=== PATIENT | male | born 1940 | race Caucasian/White ===

== ENCOUNTER → 2016-12-02 | Outpatient (CLI) | payer MEDICARE, BC ==
[~2016-12-02] MED LIST: ALEV220T14 PO; ASPI81CH37 CHEW; COMMODE 3-IN-11 MIS; CPMMACHINE; DILT1TAB4 PO; ENOX40P SQ; HYDR-3288 PO; LIPI10TA PO; WALKER WHEELS/F1 MIS
[2016-12-02 11:17] LABS: AUTOMATED NEUTROPHIL # 3.6 TH/MM3 (1.8-7.7); BASOPHIL % 0.4 % (0.0-2.0); EOSINOPHIL # 0.4 TH/MM3 (0-0.4); HEMATOCRIT 39.9 % (39.0-51.0); HEMO FLAGS DIFF FINAL; LYMPH % 30.3 % (9.0-44.0); LYMPHOCYTE # 2.1 TH/MM3 (1.0-4.8); MEAN CELL VOLUME 92.8 FL (80.0-100.0); MEAN CORPUSCULAR HEMOGLOBIN 31.2 PG (27.0-34.0); MEAN CORPUSCULAR HGB CONC 33.7 % (32.0-36.0); MONO % 12.5 % (0.0-8.0); NEUT % 51.8 % (16.0-70.0); PLATELET COUNT 248 TH/MM3 (150-450); RED CELL DISTRIBUTION WIDTH 13.2 % (11.6-17.2)
[2016-12-02 11:27] LABS: APTT (PATIENT) 25.7 SEC (24.3-30.1); INTERNATIONAL NORMALIZED RATIO 0.9 RATIO; PROTHROMBIN TIME - PATIENT 10.4 SEC (9.8-11.6)
[2016-12-02 11:38] LABS: BLOOD, URINE NEG (NEG); COMMENT (UR) CULT NOT INDICATED; CULTURE IF INDICATED CULT NOT INDICATED; GLUCOSE,URINE NEG (NEG); KETONE, URINE NEG (NEG); MUCUS URINE FEW /lpf (OCC); NITRITE,URINE NEG (NEG); PH, URINE 5.5 (5.0-8.5); URINE COLOR YELLOW (YELLW/STRAW)
[2016-12-02 11:40] LABS: WESTERGREN SEDIMENTATION RATE 6 mm/hr (0-20)
[2016-12-02 11:55] LABS: ANION GAP 6 MEQ/L (5-15); AST (GOT) 24 U/L (15-37); BICARBONATE 27.5 MEQ/L (21.0-32.0); BLOOD UREA NITROGEN 19 MG/DL (7-18); CHLORIDE 106 MEQ/L (98-107); GLOMERULAR FILTRATION RATE 71 ML/MIN (>89); GLUCOSE,FASTING 92 MG/DL (74-99); POTASSIUM 4.7 MEQ/L (3.5-5.1); SODIUM (NA) 139 MEQ/L (136-145)
[2016-12-02 11:56] LABS: ALT (GPT) 22 U/L (12-78)
[2016-12-02 11:58] LABS: ALKALINE PHOSPHATASE 78 U/L (45-117); TOTAL BILIRUBIN ADULT 0.8 MG/DL (0.2-1.0)
--- NOTE | 2016-12-02 13:44 | RADRPT ---
EXAM DATE/TIME: 12/02/2016 11:52 [facility] COMPARISON: CHEST PA & LAT, March 12, 2014, 11:07. INDICATIONS : Evaluate for pneumonia, pneumothorax or communicable disease. Pre op for left knee surgery 12-21-16. MEDICAL HISTORY : Hypertension. High blood pressure, TIA, hx of bleed SURGICAL HISTORY : None. ENCOUNTER: Initial ACUITY: 1 day PAIN SCORE: 0/10 LOCATION: Bilateral chest FINDINGS: The heart and mediastinal structures are stable. The pulmonary vascularity pattern is normal. The l ungs are clear. Degenerative changes are noted throughout the thoracic spine. CONCLUSION: 1. No acute cardiopulmonary disease. Miky Swann MD on December 02, 2016 at 12:59 Board Certified Radiologist. This report was verified electronically.
== END ==
LOC: CPRE 09:57
PROVIDERS: ATTEND Orthopaedic Surgery Sports Medicine
DX: Z01.812 Encounter for preprocedural laboratory examination (principal); M17.12 Unilateral primary osteoarthritis, left knee; M25.50 Pain in unspecified joint; Z79.01 Long term (current) use of anticoagulants
CPT/HCPCS: 36415; 71020; 80053; 81001; 85025; 85610; 85652; 85730

== ENCOUNTER 2016-12-18 07:00 | Inpatient (IN) | payer MEDICARE, BC ==
[~2016-12-18] VITALS: Ht 180.3 cm; Wt 83.9 kg
[~2016-12-18 07:00] MED LIST changes: -ASPI81CH37 CHEW; -COMMODE 3-IN-11 MIS; -CPMMACHINE; -ENOX40P SQ; -HYDR-3288 PO; -WALKER WHEELS/F1 MIS
[2016-12-21] MEDS ORDERED: METOPROLOL TARTRATE 25 MG TAB PO PRN (06:00)
[2016-12-21] MEDS ORDERED: CHLORHEXIDINE GLUCONATE 2 % 1 PACK (2 CLOTHS) TOPICAL PRN (06:00)
[2016-12-21] MEDS ORDERED: VANCOMYCIN 1000 MG/NS 250 ML (for <70 kg) IV SCH ×2 (06:00)
[2016-12-21] MEDS ORDERED: INSULIN HUMAN REGULAR 1,000 UNITS/10 ML VIAL SQ PRN (06:00)
[2016-12-21] MEDS ORDERED: LACTATED RINGER'S 1000 ML IV PRN (06:00)
[2016-12-21] MEDS ORDERED: CHLORHEXIDINE GLUCONATE 4% SOLN 120 ML BTL TOPICAL SCH (06:00)
[2016-12-21] MEDS ORDERED: POVIDONE IODINE 7.5% SCRUB 118 ML BOTTLE TOPICAL SCH (06:00)
[2016-12-21] MEDS ORDERED: ceFAZolin 2 GM PREMIX 50 ML IV SCH (06:00)
[2016-12-21] MEDS ORDERED: POVIDONE IODINE 5% (ANTISEPSIS KIT) 4 APPLICATIONS EACH NARE PRN (06:00)
[2016-12-21] MEDS ORDERED: SODIUM CHLORID 0.9% 500 ML IV PRN (06:00)
[2016-12-21] MEDS ORDERED: GENTAMICIN SULFATE 80 MG/2 ML VIAL ONE (06:55)
[2016-12-21] MEDS ORDERED: ONDANSETRON HCL 4 MG/2 ML VIAL IVP PRN (07:00)
[2016-12-21] MEDS ORDERED: ZOLPIDEM TARTRATE 5 MG TAB PO PRN (07:00)
[2016-12-21] MEDS ORDERED: diphenhydrAMINE HCL 50 MG/ML VIAL IV PRN (07:00)
[2016-12-21] MEDS ORDERED: BISACODYL 10 MG SUPP RECTAL PRN (07:00)
[2016-12-21] MEDS ORDERED: MORPHINE SULFATE 4 MG/ML INJ IV PUSH PRN (07:00)
[2016-12-21] MEDS ORDERED: Post-op Orders (for Pharmacy) MISC XX ONE (07:00)
[2016-12-21] MEDS ORDERED: DEXAMETHASONE SOD PHOS 20 MG/5 ML VIAL IV SCH (07:30)
[2016-12-21] MEDS ORDERED: ASPI81CH37 CHEW (08:26)
[2016-12-21] MEDS ORDERED: HYDR-3288 PO (08:27)
[2016-12-21] MEDS ORDERED: ENOX40P SQ (08:27)
[2016-12-21] MEDS ORDERED: SODIUM CHLORIDE 0.9% IV SCH (08:30)
[2016-12-21] MEDS ORDERED: TRANEXAMIC ACID IV SCH (08:30)
[2016-12-21] MEDS ORDERED: ROPIVACAINE PERI-ARTICULAR INJECTION. P-ARTICULR SCH ×5 (08:30)
[2016-12-21] MEDS ORDERED: TRANEXAMIC PERI-ARTICULAR 3,000 MG/NS 100 ML P-ARTICULR SCH ×2 (08:30)
[2016-12-21] MEDS ORDERED: SODIUM CHLORIDE 0.9% FLUSH 10 ML FLUSH IV FLUSH PRN (08:45)
[2016-12-21] MEDS: DILTIAZEM-CD 240 MG CAP ER PO SCH ×2 (09:00→21:58)
[2016-12-21] MEDS: SODIUM CHLORIDE 0.9% FLUSH 10 ML FLUSH IV FLUSH SCH ×2 (09:00→21:44)
--- NOTE | 2016-12-21 10:19 | HHI.PR ---
Addendum to Inpatient Note Additional Information Medicare patient of Dr. Barnett. Discussed with Dr. Siu who will assume medical consult Diogenes Villegas MD Dec 21, 2016 10:19
[2016-12-21] MEDS ORDERED: DO NOT ADM ANY ANTICOAGULANT DRUGS PRN (10:42)
--- NOTE | 2016-12-21 11:36 | MP ---
cc: BUSHRA ROSARIO DATE OF SURGERY: 12/21/2016 PREOPERATIVE DIAGNOSIS Left knee osteoarthritis. POSTOPERATIVE DIAGNOSIS Left knee osteoarthritis. PROCEDURE Left total knee arthroplasty. SURGEON Dr. Bushra Rosario. PATIENT OBSERVATION ASSISTANT ELEONORA Urbano ANESTHESIA General with an adductor canal block. ESTIMATED BLOOD LOSS 50 ccs. TOURNIQUET TIME 56 minutes at 250 mmHg. COMPLICATIONS None. IMPLANTS USED DePuy Attune size 8 posterior stabilized femoral component, size 8 rotating platform tibia baseplate, size 5 mm polyethylene tibial insert, size 41 patella. JUSTIFICATION This patient is a 76-year-old male with history of severe end-stage osteoarthritis involving the left knee. He has severe disabling pain with standing, walking, ambulation, weight-bear Activities, severe pain at rest. He has failed greater than 3 months of nonoperative conservative treatment to include medication therapy, injections, ambulatory assisted aids, home exercise program, activity modification. The patient is not overweight. X-ray of the left knee reveals severe end-stage osteoarthritis, [id number] joint space narrowing, subchondral sclerosis, subchondral cyst, osteophyte formation with varus deformity. The patient was counseled as to the risks, benefits and alternatives to a total knee arthroplasty. The risks were discussed which include but not limited to anesthesia, bleeding, infection, damage to nerves, blood vessels, pain, stiffness, failure of components, blood clots, pulmonary embolism and even . The patient's pain is severe, he favored the benefits over the risks and did wish to proceed with surgery. PROCEDURE IN DETAIL A written consent was obtained. The patient was identified by name, taken to the operating room and placed supine on the operating table. General anesthesia was administered as well as 2 grams of IV Ancef and 1 gram of IV vancomycin. He did receive adductor canal block. A well-padded tourniquet was placed on the left thigh, left lower extremity was prepped and draped using isopropyl alcohol, Hibiclens solution and Chloraprep solution. After time-out was performed an Esmarch bandage was used to exsanguinate the left lower extremity. Tourniquet was inflated to 250 mmHg. A longitudinal incision was made over the anterior aspect of the left knee. A medial parapatellar arthrotomy was performed. The patella was everted. Patella resection guide was used to resect 9 mm of patella. The size 41 mm guide was placed, three drill holes were placed and a 41 mm patella trial fit well. Attention was turned to the femur where an intramedullary guidewire was placed. The distal femoral guide was set to remove 11 mm of distal femur, 5 degrees off the anatomic valgus axis alignment. An oscillating saw was used to perform the distal femoral cut. Attention was turned to the tibia where an extramedullary tibial guide was set to remove 5 mm off the lowest portion of the medial tibial plateau. The tibia guide was pinned in place and tibia cut was performed. A 5-mm spacer block showed full extension. Attention was turned back the femur, AP sizing block measured a size 8. The anterior reference 3 degree external rotation guide was used to pin the size [address] The anterior, posterior and chamfer cuts were performed. A size 8 PCL box guide was pinned in place. PCL was boxed out with an oscillating saw. The medial and lateral meniscus remnants were removed as well as bone and soft tissue debris from posterior portion of the knee. A size 8 tibia baseplate was pinned in place. Tibia was drilled and punched. Trial components were evaluated and final components cemented in place. With current component the leg could achieve full extension 0 degrees, flexion to 140. No evidence of tibial lift-off, varus-valgus balance appeared appropriate and symmetric and the patella was noted to track centrally. Tourniquet was deflated. Bovie cautery was used for hemostasis. Surgical wound was thoroughly irrigated with sterile saline pulse lavage antibiotic impregnated solution. The arthrotomy incision was closed with #1 Vicryl suture, subcutaneous layer with 2-0 Vicryl suture. Skin was closed with Dermabond. Sterile dressing was applied. The patient tolerated the procedure well with no intraoperative complications noted. Jerman Tracy, physician licensed investment sales assistant certified was present during the entire procedure to include patient positioning and the procedure itself. The medical necessity of physician licensed investment sales assistant was indicated in this case due to the complexity of the procedure. He assisted with appropriate manipulation of the leg and also retraction of muscle, tendon and bone, neurovascular structures. He assisted with preparation of bone and also implantation of the prosthetic replacement. MD LUIZA Moreno/MARTÍN /10:19 AM /11:12 AM
[2016-12-21] MEDS: SODIUM CHLOR 0.9% 1000 ML INJ 1,000 ML IV SCH ×2 (11:50→19:00)
--- NOTE | 2016-12-21 11:50 | RADRPT ---
EXAM DATE/TIME: 12/21/2016 10:48 [facility] COMPARISON: No previous studies available for comparison. INDICATIONS : Post operative left knee. MEDICAL HISTORY : Hypertension. High blood pressure, TIA, hx of bleed. SURGICAL HISTORY : None. ENCOUNTER: Initial ACUITY: 1 day PAIN SCORE: Non-responsive. LOCATION: Left knee. FINDINGS: Left total knee arthroplasty is noted. The tibial and femoral components are well seated. There is ai r in the suprapatellar region and a small amount of subcutaneous emphysema. CONCLUSION: Expected postsurgical changes left total knee arthroplasty. Vishnu Torres MD on December 21, 2016 at 11:48 Board Certified Radiologist. This report was verified electronically.
[2016-12-21] MEDS ORDERED: ePHEDrine/NS 25 MG/5 ML SYR IV ONE (12:00)
[2016-12-21] MEDS ORDERED: ONDANSETRON HCL 4 MG/2 ML VIAL IV PUSH ONE (12:00)
[2016-12-21] MEDS ORDERED: LIDOCAINE HCL 1% PF 5 ML AMPULE OTHER ONE (12:00)
[2016-12-21] MEDS ORDERED: PROPOFOL 200 MG/20 ML AMP IV ONE (12:00)
[2016-12-21] MEDS ORDERED: BUPIVACAINE LIPOSOME PF 1.3% 20 ML VIAL ONE (12:18)
--- NOTE | 2016-12-21 12:48 | HHI.DCPOC ---
Discharge Care Plan Diagnosis: (1) Primary localized osteoarthrosis, lower leg Your Health Problems Are: Difficulty with ADL Goals to Promote Your Health * To prevent worsening of your condition and complications * To maintain your health at the optimal level Directions to Meet Your Goals Take your medications as prescribed Follow your dietary instruction Follow activity as directed Keep your appointments as scheduled Take your immunizations and boosters as scheduled If your symptoms worsen call your PCP, if no PCP go to Urgent Care Center or Emergency Room Smoking is Dangerous to Your Health. Avoid second hand smoke Call the 24-hour hour crisis hotline for domestic abuse at Martin Tracy Dec 21, 2016 12:48
--- NOTE | 2016-12-21 12:49 | HHI.FF ---
Face to Face Verification Diagnosis: (1) Primary localized osteoarthrosis, lower leg Physical Therapy Gait training, Safety evaluation, Transfer training, bed to chair Knee: Total knee, Protocol: Left Left LE Weight Bearing: WB as tolerated Nursing RN: 3 days/week x 2 weeks Nursing: Tita teaching, Dressing changes Dressing Changes: Daily dressing change I have seen patient Coleman Chapa on 12/21/16. My clinical findings support the need for the requested home health care services because: Limited ability to care for self High risk of falls I certify that my clinical findings support that this patient is homebound because: Post-op weakness Unsteady gait/balance Martin Tracy Dec 21, 2016 12:49
[2016-12-21] MEDS ORDERED: CPMMACHINE (12:51)
[2016-12-21] MEDS ORDERED: WALKER WHEELS/F1 MIS (12:51)
[2016-12-21] MEDS ORDERED: COMMODE 3-IN-11 MIS (12:51)
[2016-12-21] MEDS: ACETAMINOPHEN/HYDROcodone 325 MG/7.5 MG TAB PO PRN ×3 (13:44→21:58)
[2016-12-21 13:45] VITALS: BP 140/74; PULSE 77; RESP 18; TEMP 95.7; O2SAT 98
[2016-12-21 16:00] VITALS: BP 155/75; PULSE 76; RESP 18; TEMP 96.6; O2SAT 98
--- NOTE | 2016-12-21 16:11 | HHI.PR ---
Objective Objective Results - Vital Signs Date Time Temp Pulse Resp B/P (MAP) Pulse Ox O2 Delivery O2 Flow Rate FiO2 12/21/16 12:45 98.0 73 18 141/71 (94) 98 Room Air 12/21/16 12:15 72 18 133/65 (87) 98 Room Air 12/21/16 12:00 72 18 133/65 (87) 98 Room Air 12/21/16 11:45 78 18 136/70 (92) 97 Room Air 12/21/16 11:30 72 18 134/63 (86) 97 Nasal Cannula 2 12/21/16 11:15 69 16 136/63 (87) 97 Nasal Cannula 2 12/21/16 11:00 64 16 115/58 (77) 97 Nasal Cannula 2 12/21/16 10:43 97.6 65 16 122/61 (81) 100 Nasal Cannula 12/21/16 05:35 98.0 65 20 157/76 (103) 99 I/O 12/20/16 12/20/16 12/20/16 12/21/16 12/21/16 12/21/16 07:00 15:00 23:00 07:00 15:00 23:00 Intake Total 1150 ml Output Total 1020 ml Balance 130 ml Intake IV Total 50 ml Other 1100 ml Output Urine Total 1000 ml Estimated Blood Loss 20 ml A/P Assessment and Plan [id number] OA lt. Knee , S/P lt total knee arthroplasty DDD HTN CVD, murmur Hyperlipidemia Corina Traylor Dec 21, 2016 16:11
[2016-12-21 17:57] VITALS: O2SAT 98
--- NOTE | 2016-12-21 19:42 | MB ---
cc: ELENI FAM MD DATE OF CONSULTATION 12/21/2016 Consultation note for medical management. DATE OF 1940 This is Corina Traylor, nurse practitioner dictating with Dr. Fam present. REASON FOR CONSULTATION Medical management as stated. HISTORY OF PRESENT ILLNESS This is a pleasant, well-developed, well-nourished, white male who has been struggling with osteoarthritis in his left knee. 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 He has had injections but made a conscious decision to the have left total knee arthroplasty. The patient is now resting in his private room postop. He is alert, oriented and a good historian. PAST MEDICAL HISTORY Includes: 1. Hypertension, controlled. 2. Osteoarthritis. 3. Heart disease. 4. Right hip osteoarthritis. 5. Hyperlipidemia. 6. Mild chronic obstructive pulmonary disease. 7. Ethyl alcohol usage. 8. Right shoulder osteoarthritis. 9. Cataracts. PAST SURGICAL HISTORY 1. He is status post left total knee arthroplasty. 2. History of right shoulder repair. 3. Right hip artificial joint repair. ALLERGIES None known. MEDICATIONS Reconciled. 1. Lipitor. 2. Cardizem. 3. Aspirin. 4. Aleve. 5. Hydrocodone. SOCIAL HISTORY The patient is , currently lives in his home with his . 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 He was exposed to secondhand smoke from his parents. He does socially drink alcohol but not daily in small amounts. No illicit drug use. REVIEW OF SYSTEMS The 10-point review was obtained. Positives noted in HPI which include his symptoms of osteoarthritis. The patient denies any chest pain. No headaches. No problems with bowel regimen. No nausea. Other systems negative or unremarkable. PHYSICAL EXAMINATION VITAL SIGNS: Temperature is 98, pulse 73, respirations 18, blood pressure 141/71, has been as low as 133/65. Currently 98% O2 sat on room air. GENERAL: Slim, well-nourished, well-developed white male looks younger than his stated age resting in the bed. He is alert, oriented and a good historian. SKIN: Sun, warm and dry. HEENT: Atraumatic, normocephalic. DOUG at 3. Mucous membranes are pink and moist. NECK: Supple. No scleral icterus. CARDIOVASCULAR: S1-S2, rhythm is regular. He does have a soft systolic murmur grade 2/6 at the left sternal border. He has no edema and his extremities are warm with good pulses. LUNGS: Essentially clear anteriorly and posteriorly with no wheezes, rhonchi or rales. ABDOMEN: Flat, soft, nontender, nondistended. Active bowel sounds. MUSCULOSKELETAL: Moves all extremities with purpose. He can overcome resistance. He does have some guarding to the left lower extremity due to his knee surgery today. NEUROLOGIC: He is alert, oriented. Tongue is midline. Speech is clear. HPSYCHOLOGIC: Appropriate mood and affect. LABORATORY DATA Diagnostic data done on 12/02/2016 WBC count was 7, RBC 4.3, hemoglobin 13.4, hematocrit 39.9, platelet count 248. Sebastian count percentage 12.5, eosinophils 5. Chemistry, sodium 139, potassium 4.7, chloride 106, carbon dioxide 27.5. BUN 19, GFR 71. AST 24, ALT 22. Albumin 4.1. Urine was clear with no culture indicated. PT INR was 0.9. IMAGING Showed knee x-ray to be the expected postsurgical changes and the left total knee arthroplasty. ASSESSMENT/PLAN 1. Osteoarthritis. The patient is with degenerative joint disorders. He is status post left total knee arthroplasty. 2. Hypertension. 3. History of cardiovascular disease. 4. Systolic murmur noted. 5. Hyperlipidemia. Our plan is to admit. We will monitor some labs in the morning. Postoperative care and pain management will be cared for per his orthopedic team. Medications have been reconciled. We will monitor for any signs or symptoms of fever or uncontrolled hypertension. The patient's discharge planning is something that he is debating on at this time. He is possibly looking at going to [facility] versus an outpatient program to where he can use the physical therapist pre. The patient is full code, full aggressive care and we will follow. Thank you very much for this consultation. Dictated by: JOANN Hahn MD GONZÁLEZ Lara/SHAY /4:01 PM /7:17 PM
[2016-12-21 20:01] VITALS: BP 154/68; PULSE 78; RESP 17; TEMP 96.9; O2SAT 97
[2016-12-21] MEDS: ATORVASTATIN 10 MG TAB PO SCH (21:44)
[2016-12-22] VITALS (7 sets, daily range): BP systolic 116–154; BP diastolic 58–79; PULSE 61–80; RESP 17–18; TEMP 96.9–97.9; O2SAT 96–98
[2016-12-22] MEDS: ACETAMINOPHEN/HYDROcodone 325 MG/7.5 MG TAB PO PRN ×3 (05:10→19:11)
[2016-12-22 06:52] LABS: HEMATOCRIT 34.4 % (39.0-51.0); MEAN CELL VOLUME 92.8 FL (80.0-100.0); MEAN CORPUSCULAR HEMOGLOBIN 30.6 PG (27.0-34.0); PLATELET COUNT 241 TH/MM3 (150-450); REVIEW FLAG FINAL; WHITE BLOOD COUNT 16.5 TH/MM3 (4.0-11.0)
[2016-12-22 07:20] LABS: BICARBONATE 24.2 MEQ/L (21.0-32.0); POTASSIUM 4.2 MEQ/L (3.5-5.1)
--- NOTE | 2016-12-22 08:26 | PD.ORT.PN ---
Subjective Post Op Day #: 1 Subjective Remarks doing well, pain controlled. Objective Vitals Vital Signs Date Time Temp Pulse Resp B/P (MAP) Pulse Ox O2 Delivery O2 Flow Rate FiO2 12/22/16 04:06 97.2 80 17 154/79 (104) 98 12/22/16 00:00 96.9 79 17 135/76 (95) 96 12/21/16 20:01 96.9 78 17 154/68 (96) 97 12/21/16 17:57 98 21 12/21/16 16:00 96.6 76 18 155/75 (101) 98 12/21/16 13:45 95.7 77 18 140/74 (96) 98 12/21/16 12:45 98.0 73 18 141/71 (94) 98 Room Air 12/21/16 12:15 72 18 133/65 (87) 98 Room Air 12/21/16 12:00 72 18 133/65 (87) 98 Room Air 12/21/16 11:45 78 18 136/70 (92) 97 Room Air 12/21/16 11:30 72 18 134/63 (86) 97 Nasal Cannula 2 12/21/16 11:15 69 16 136/63 (87) 97 Nasal Cannula 2 12/21/16 11:00 64 16 115/58 (77) 97 Nasal Cannula 2 12/21/16 10:43 97.6 65 16 122/61 (81) 100 Nasal Cannula I/O 12/21/16 12/21/16 12/21/16 12/22/16 12/22/16 12/22/16 07:00 15:00 23:00 07:00 15:00 23:00 Intake Total 1150 ml 480 ml 120 ml Output Total 1120 ml 250 ml 400 ml Balance 30 ml 230 ml -280 ml Intake Oral 480 ml 120 ml IV Total 50 ml Other 1100 ml Output Urine Total 1100 ml 250 ml 400 ml Estimated Blood Loss 20 ml # Voids 1 # Bowel Movements 0 0 Result Diagram: 12/22/1645 12/22/1645 Objective Remarks in chair, nad incision no erythema, no drainage neg homans nvi Assessment & Plan Ortho Post Op Day #: 1 Problem List: Assessment and Plan s/p L TKA wbat daily dressing changes lovenox d/c planning to snf 3008 signed rx in chart f/up dr. baumann 2 weeks Martin Tracy Dec 22, 2016 08:26
[2016-12-22] MEDS: DILTIAZEM-CD 240 MG CAP ER PO SCH (10:17)
[2016-12-22] MEDS: SODIUM CHLORIDE 0.9% FLUSH 10 ML FLUSH IV FLUSH SCH ×2 (10:18→20:35)
[2016-12-22] MEDS: ENOXAPARIN SODIUM 40 MG/0.4 ML SYRINGE SQ SCH (10:20)
--- NOTE | 2016-12-22 12:30 | HHI.PR ---
Subjective Subjective Remarks left knee pain stable no fever no cp no sob no bm yet eating well, no n/v (Carolyn Valentine) Review of Systems Constitutional Constitutional Remarks 12 point ros completed, negative except as noted above (Carolyn Valentine) Vitals/Results Vital Signs Vital Signs Date Time Temp Pulse Resp B/P (MAP) Pulse Ox O2 Delivery O2 Flow Rate FiO2 12/22/16 08:00 96.9 66 18 136/66 (89) 98 12/22/16 04:06 97.2 80 17 154/79 (104) 98 12/22/16 00:00 96.9 79 17 135/76 (95) 96 12/21/16 20:01 96.9 78 17 154/68 (96) 97 12/21/16 17:57 98 21 12/21/16 16:00 96.6 76 18 155/75 (101) 98 12/21/16 13:45 95.7 77 18 140/74 (96) 98 12/21/16 12:45 98.0 73 18 141/71 (94) 98 Room Air (Carolyn Valentine) CBC/BMP: 12/22/16 0545 12/22/16 0545 Lab Results Laboratory Tests Test 12/22/16 05:45 White Blood Count 16.5 TH/MM3 Red Blood Count 3.70 MIL/MM3 Hemoglobin 11.3 GM/DL Hematocrit 34.4 % Mean Corpuscular Volume 92.8 FL Mean Corpuscular Hemoglobin 30.6 PG Mean Corpuscular Hemoglobin Concent 33.0 % Red Cell Distribution Width 13.0 % Platelet Count 241 TH/MM3 Mean Platelet Volume 8.0 FL Blood Urea Nitrogen 18 MG/DL Creatinine 0.99 MG/DL Random Glucose 127 MG/DL Calcium Level 8.8 MG/DL Sodium Level 140 MEQ/L Potassium Level 4.2 MEQ/L Chloride Level 106 MEQ/L Carbon Dioxide Level 24.2 MEQ/L Anion Gap 10 MEQ/L Estimat Glomerular Filtration Rate 73 ML/MIN (Carolyn Valentine) Physical Exam General General Appearance: Well Developed, Well Nourished, No Acute Distress, Comfortable (Carolyn Valentine) Eyes Eye Exam: Pupils Equal, Pupils Reactive (Carolyn Valetnine) Ears & Nose Ears & Nose Exam: Nasal Mucosa [place] (Carolyn Valentine G. DIVORCE MEDIATOR) Throat Throat Exam: Oral Mucosa [place] & Moist (Carolyn Valentine G. DIVORCE MEDIATOR) Neck Neck Exam: Neck Supple, Trachea Midline (Carolyn Valentine G. DIVORCE MEDIATOR) Pulmonary Resp Exam: Clear Bilaterally, No Distress (Garrett Valentineana G. DIVORCE MEDIATOR) Cardiology CV Exam: Regular, Good Perfusion (Garrett Valentineana G. DIVORCE MEDIATOR) Gastrointestinal/Abdomen GI Exam: Soft, Non-Tender, Bowel Sounds Present, Non-Distended (Carolyn Valentine G. DIVORCE MEDIATOR) Musculoskeletal MS Exam: Joints Intact MS Remarks left knee dressing D/I (Carolyn Valentine G. DIVORCE MEDIATOR) Integumentary Skin Exam: Warm, Dry (Carolyn Valentine G. DIVORCE MEDIATOR) Extremeties Extremities Exam: Pedal Pulses Palpable, Trace Edema (Carolyn Valentine G. DIVORCE MEDIATOR) Neurologic Neuro Exam: Alert, Awake, Oriented, Speech Clear, Moving All Extremities, No Focal Deficits (Carolyn Valentine G. DIVORCE MEDIATOR) Psychiatric Psych Exam: Appropriate Responses (Carolyn Valentine GKj DIVORCE MEDIATOR) VTE Prophylaxis VTE Prophylaxis Device: TEDs VTE Prophylaxis Meds: Lovenox (MemeCarolyn G. DIVORCE MEDIATOR) Assessment/Plan Assessment/Plan ASSESSMENT/PLAN 1. Osteoarthritis. Status post left total knee arthroplasty. 2. Hypertension. 3. Hyperlipidemia. 4. Leukocytosis Plan continue with post op ortho care pain management PT Bowel Regimen wound car Lovenox for DVT prophylaxis BP control, continue home meds Leukocytosis, no fever monitor WBC Enc. IS, inc mobility Repeat Labs in am D/W RN D/W Dr. Siu D/W pt This patient was seen by myself and Dr. Siu, this note is written on his behalf. (Carolyn Valentine DIVORCE MEDIATOR) Assessment/Plan seen, examined by myself, Dr Siu, today Discussed with patient and family at bedside Doing well postoperatively Eating well, doing his physical therapy without problems, pain well controlled, Leukocytosis noted, no fever, no cough, no dysuria Follow white count Discussed with mid level provider The exam, history, and the medical decision-making described in the above note were completed with the assistance of the mid-level provider. I reviewed the findings presented. I attest that I had a [id number] encounter with the patient on the same day, and personally performed and documented my assessment and findings in the medical record. (Jax Siu MD) Carolyn Valentine Dec 22, 2016 12:30 Jax Siu MD Dec 22, 2016 16:55
[2016-12-22] MEDS: SODIUM CHLOR 0.9% 1000 ML INJ 1,000 ML IV SCH (15:00)
[2016-12-22] MEDS: MULTIVITAMINS/MINERALS THERAPEUTIC TAB PO SCH (20:34)
[2016-12-22] MEDS: ATORVASTATIN 10 MG TAB PO SCH (20:34)
[2016-12-22] MEDS: DOCUSATE SODIUM 100 MG CAP PO SCH (20:35)
[2016-12-23] MEDS: SODIUM CHLOR 0.9% 1000 ML INJ 1,000 ML IV SCH ×2 (00:27→11:00)
[2016-12-23] MEDS: ACETAMINOPHEN/HYDROcodone 325 MG/7.5 MG TAB PO PRN ×3 (02:46→13:31)
[2016-12-23 05:51] LABS: HEMATOCRIT 34.8 % (39.0-51.0); MEAN CELL VOLUME 92.6 FL (80.0-100.0); MEAN CORPUSCULAR HEMOGLOBIN 30.7 PG (27.0-34.0); MEAN CORPUSCULAR HGB CONC 33.2 % (32.0-36.0); PLATELET COUNT 248 TH/MM3 (150-450); RED BLOOD COUNT 3.76 MIL/MM3 (4.50-5.90); RED CELL DISTRIBUTION WIDTH 13.1 % (11.6-17.2); REVIEW FLAG FINAL; WHITE BLOOD COUNT 13.7 TH/MM3 (4.0-11.0)
[2016-12-23 06:05] LABS: BICARBONATE 25.9 MEQ/L (21.0-32.0)
--- NOTE | 2016-12-23 06:16 | PD.ORT.PN ---
Subjective Post Op Day #: 2 Subjective Remarks doing well, pain controlled. denies sob and cp. Objective Vitals Vital Signs Date Time Temp Pulse Resp B/P (MAP) Pulse Ox O2 Delivery O2 Flow Rate FiO2 12/22/16 23:03 97.2 71 18 134/58 (83) 96 12/22/16 19:16 97.9 62 18 149/67 (94) 96 12/22/16 16:00 97.2 61 18 116/61 (79) 97 12/22/16 12:00 97.4 61 18 129/68 (88) 97 12/22/16 08:00 96.9 66 18 136/66 (89) 98 I/O 12/22/16 12/22/16 12/22/16 12/23/16 12/23/16 12/23/16 07:00 15:00 23:00 07:00 15:00 23:00 Intake Total 120 ml 600 ml 360 ml 480 ml Output Total 400 ml 100 ml 375 ml 750 ml Balance -280 ml 500 ml -15 ml -270 ml Intake Oral 120 ml 600 ml 360 ml 480 ml Output Urine Total 400 ml 100 ml 375 ml 750 ml # Voids 2 2 # Bowel Movements 0 0 0 0 Result Diagram: 12/23/16 0501 12/23/16 0501 Objective Remarks in bed, nad dressing c/d/i neg homans nvi Assessment & Plan Ortho Post Op Day #: 2 Problem List: Assessment and Plan s/p L TKA wbat daily dressing changes lovenox d/c planning home with [facility] and pt - cleared if does well with PT [id number] signed rx in chart f/up dr. baumann 2 weeks Martin Tracy Dec 23, 2016 06:16
[2016-12-23 08:00] VITALS: BP 163/84; PULSE 83; RESP 18; TEMP 97.5; O2SAT 97
[2016-12-23] MEDS ORDERED: MAGNESIUM HYDROXIDE SUSP 30 ML CUP PO ONE (09:00)
[2016-12-23] MEDS: DILTIAZEM-CD 240 MG CAP ER PO SCH (09:18)
[2016-12-23] MEDS: DOCUSATE SODIUM 100 MG CAP PO SCH (09:18)
[2016-12-23] MEDS: MULTIVITAMINS/MINERALS THERAPEUTIC TAB PO SCH (09:18)
[2016-12-23] MEDS: SODIUM CHLORIDE 0.9% FLUSH 10 ML FLUSH IV FLUSH SCH (09:21)
[2016-12-23] MEDS ORDERED: INFLUENZA VIRUS VACCINE (QUADRIVALENT) 0.5 ML SYR IM ONE (10:00)
[2016-12-23] MEDS: ENOXAPARIN SODIUM 40 MG/0.4 ML SYRINGE SQ SCH (10:06)
--- NOTE | 2016-12-23 11:00 | HHI.PR ---
Subjective Subjective Remarks left knee pain stable no fever no cp no sob no bm yet eating well, no n/v Owing to rehabilitation today Per nursing, was a little disoriented last night, patient better today. Oriented 3. Review of Systems Constitutional Constitutional Remarks 12 point ros completed, negative except as noted above Vitals/Results Vital Signs Vital Signs Date Time Temp Pulse Resp B/P (MAP) Pulse Ox O2 Delivery O2 Flow Rate FiO2 12/23/16 08:00 97.5 83 18 163/84 (110) 97 12/22/16 23:03 97.2 71 18 134/58 (83) 96 12/22/16 19:16 97.9 62 18 149/67 (94) 96 12/22/16 16:00 97.2 61 18 116/61 (79) 97 12/22/16 12:00 97.4 61 18 129/68 (88) 97 CBC/BMP: 12/23/16 0501 12/23/16 0501 Lab Results Laboratory Tests Test 12/23/16 05:01 White Blood Count 13.7 TH/MM3 Red Blood Count 3.76 MIL/MM3 Hemoglobin 11.5 GM/DL Hematocrit 34.8 % Mean Corpuscular Volume 92.6 FL Mean Corpuscular Hemoglobin 30.7 PG Mean Corpuscular Hemoglobin Concent 33.2 % Red Cell Distribution Width 13.1 % Platelet Count 248 TH/MM3 Mean Platelet Volume 8.1 FL Blood Urea Nitrogen 19 MG/DL Creatinine 0.91 MG/DL Random Glucose 107 MG/DL Calcium Level 9.0 MG/DL Sodium Level 138 MEQ/L Potassium Level 4.0 MEQ/L Chloride Level 105 MEQ/L Carbon Dioxide Level 25.9 MEQ/L Anion Gap 7 MEQ/L Estimat Glomerular Filtration Rate 81 ML/MIN Physical Exam General General Appearance: Well Developed, Well Nourished, No Acute Distress, Comfortable Eyes Eye Exam: Pupils Equal, Pupils Reactive Ears & Nose Ears & Nose Exam: Nasal Mucosa [place] Throat Throat Exam: Oral Mucosa [place] & Moist Neck Neck Exam: Neck Supple, Trachea Midline Pulmonary Resp Exam: Clear Bilaterally, No Distress Cardiology CV Exam: Regular, Good Perfusion Gastrointestinal/Abdomen GI Exam: Soft, Non-Tender, Bowel Sounds Present, Non-Distended Musculoskeletal MS Exam: Joints Intact MS Remarks left knee dressing D/I Integumentary Skin Exam: Warm, Dry Extremeties Extremities Exam: Pedal Pulses Palpable, Trace Edema Neurologic Neuro Exam: Alert, Awake, Oriented, Speech Clear, Moving All Extremities, No Focal Deficits Psychiatric Psych Exam: Appropriate Responses VTE Prophylaxis VTE Prophylaxis Device: TEDs VTE Prophylaxis Meds: Lovenox Assessment/Plan Assessment/Plan ASSESSMENT/PLAN 1. Osteoarthritis. Status post left total knee arthroplasty. 2. Hypertension. 3. Hyperlipidemia. 4. Leukocytosis Plan continue with post op ortho care pain management PT Bowel Regimen-as that had BM, will MOM x 1 wound car Lovenox for DVT prophylaxis BP control, continue home meds WBC is trending down, no fever Continue with ISS, increased mobility Stable for discharge home with home health D/W RN D/W Dr. Siu D/W pt This patient was seen by myself and Dr. Siu, this note is written on his behalf. Carolyn Valentine Dec 23, 2016 11:00
[2016-12-23 12:00] VITALS: BP 148/81; PULSE 77; RESP 18; TEMP 97; O2SAT 98
--- NOTE | 2016-12-24 08:28 | MD ---
cc: BUSHRA ROSARIO M.D. ADMISSION DATE: 12/21/2016 DISCHARGE DATE: 12/23/2016 ADMISSION DIAGNOSIS Severe degenerative osteoarthritis of the left knee. DISCHARGE DIAGNOSIS Severe degenerative osteoarthritis of the left knee. HISTORY OF PRESENT ILLNESS Mr. Chapa is a 76-year-old male who has been a longstanding patient of Dr. Bushra Rosario at the [facility]. He has currently been undergoing treatment for greater than 1 year duration regarding his progressive left knee pain. The patient states the pain at this point in time is inhibiting his activities of daily living, is a constant, severe aching sensation aggravated by weightbearing activities. He has no alleviating factors although in the past he has tried medications, bracing, physical therapy, home exercise program and multiple corticosteroid injections without long-lasting relief of symptoms. He does have x-ray evidence of severe degenerative osteoarthritis of the left knee. While in the office the patient was counseled on his diagnosis and treatment options. The risks, benefits and indications of all were discussed in great detail. The patient did elect proceed with surgical intervention to include a left total knee arthroplasty. DATE OF SURGERY 12/21/2016 PROCEDURE PERFORMED Left total knee arthroplasty. POSTOP After surgery the patient was admitted to [facility] where he received appropriate medical management, pain control, DVT prophylaxis as well as physical therapy. DISCHARGE Once being discharged from the hospital the patient is cleared to go home where he will receive home health care and home physical therapy. CONDITION ON DISCHARGE He is in stable condition. DISCHARGE INSTRUCTIONS He may weight-bear as tolerated. He is to receive daily dressing changes and has been instructed on proper wound care management. DISCHARGE MEDICATIONS The patient has been provided prescriptions for pain control as well as DVT prophylaxis medication. FOLLOWUP He has also been provided a follow-up appointment approximately 2 weeks from the date of surgery. The patient has asked appropriate questions which have been answered. The patient was cleared for discharge. Dictated by: Jerman Tracy PA-C MD ROCHELLE MorenoM/INGRID /6:17 AM /8:22 AM
== END 2016-12-23 15:55 | disposition home health service (06) | DRG 470 ==
LOC: HSDI 12-21 05:27 → N06B 12-21 13:23
PROVIDERS: ADMIT Orthopaedic Surgery Sports Medicine; ATTEND Orthopaedic Surgery Sports Medicine
PROC: 3E0T3CZ (ICD-10-PCS; 2016-12-21)
PROC: 0SRD0J9 Replacement of Left Knee Joint with Synthetic Substitute, Cemented, Open Approach (ICD-10-PCS; principal; 2016-12-21 07:58)
DX: M17.12 Unilateral primary osteoarthritis, left knee (principal); J44.9 Chronic obstructive pulmonary disease, unspecified; I10 Essential (primary) hypertension; E78.5 Hyperlipidemia, unspecified; H26.9 Unspecified cataract; M19.011 Primary osteoarthritis, right shoulder; R01.1 Cardiac murmur, unspecified; Z96.641 Presence of right artificial hip joint; Z23 Encounter for immunization
CPT/HCPCS: 73560; 80048; 85027; 86850; 86900; 86901; 90471; 90472; 90686; C1776; C9290; G0008; G0009; J0690; J0735; J1100; J1580; J1650; J1885; J2405; J2795; J3370; J7030; J7050; J7120; L1830; Q2038

== ENCOUNTER 2017-03-10 13:59 | Inpatient (IN) | payer MEDICARE, BC ==
[2017-03-10] VITALS (11 sets, daily range): BP systolic 136–168; BP diastolic 62–77; PULSE 76–90; RESP 16–23; TEMP 98.5–98.9; O2SAT 95–99
[~2017-03-10] VITALS: Ht 182.9 cm; Wt 76.0 kg
[~2017-03-10 13:59] MED LIST changes: -ALEV220T14 PO; +ASPI81CH6 CHEW; +COMMODE 3-IN-11 MIS; +CPMMACHINE; +ECASA81 PO; +ENOX40P SQ; +HYDR-3288 PO; +WALKER WHEELS/F1 MIS
[2017-03-10] MEDS ORDERED: SODIUM CHLORIDE 0.9% FLUSH 10 ML FLUSH IVF PRN (14:15)
--- NOTE | 2017-03-10 14:22 | PD ---
HPI Chief Complaint: Neuro Symptoms/ Deficits Time Seen by Provider: 14:15 Travel History International Travel<30 days: No Contact w/Intl Traveler<30days: No Traveled to known affect area: No History of Present Illness HPI 76-year-old male past medical history for hypertension, hyperlipidemia presents to the emergency department via EMS for evaluation of neuro symptoms. According to EMS, the patient woke up yesterday morning around 8 AM complaining of a right-sided headache. He state in bed yesterday and rested. This morning when he woke up, his noticed that he was able to talk. According to EMS, last time seen normal was 8 AM yesterday morning. The patient is alert. He is oriented to person and place. He is not oriented to year, but does remember that the month is February. The patient does report a mild, 2/10, right sided headache. He states this aching. No radiation. He denies any fevers or chills. No chest pain or shortness of breath. No abdominal pain. No nausea, vomiting, diarrhea. According to EMS, he does have history of TIA. According to chart, he also has history of intracranial hemorrhage. Moderate severity. PFSH Past Medical History Cancer: No Cardiovascular Problems: No High Cholesterol: Yes Chemotherapy: No Diabetes: No Endocrine: No Gastrointestinal Disorders: No Genitourinary: No Headaches: Yes Hepatitis: No Hiatal Hernia: No Hypertension: Yes Immune Disorder: No Implanted Vascular Access Dvce: No Musculoskeletal: Yes (OA) Neurologic: No Psychiatric: No Reproductive: No Respiratory: No Radiation Therapy: No Thyroid Disease: No Past Surgical History Abdominal Surgery: No AICD: No Body Medical Devices: NONE Cardiac Surgery: No Ear Surgery: No Eye Surgery: No Genitourinary Surgery: No Gynecologic Surgery: No Joint Replacement: Yes (right hip) Oral Surgery: Yes (T&A AGE 18) Pacemaker: No Thoracic Surgery: No Tonsillectomy: Yes Other Surgery: Yes Family History Family Hypercholesterolemia: Yes Social History Alcohol Use: Yes Tobacco Use: No Substance Use: No Allergies-Medications (Allergen,Severity, Reaction): Coded Allergies: No Known Drug Allergies (Verified Allergy, Unknown, 01/21/17) Reported Meds & Prescriptions Reported Meds & Active Scripts Active Commode 3-in-1 (Device) 1 Mis Mis Ea .ROUTE DIRECTED Walker with Front Wheels (Device) 1 Mis Mis Ea .ROUTE DIRECTED CPM-Continuous Passive Motion Machine 1 Ea Device Ea .ROUTE DIRECTED Reported Diltiazem ER 24 HR 240 Mg Eligio 240 Mg PO DAILY Review of Systems Except as stated in HPI: all other systems reviewed are Neg Physical Exam Narrative GENERAL: Well-nourished, well-developed male patient, afebrile. SKIN: Focused skin assessment warm/dry. HEAD: Normocephalic. Atraumatic. EYES: No scleral icterus. No injection or drainage. PERRLA. NECK: Supple, trachea midline. No JVD or lymphadenopathy. ENT: Mucosa pink and moist. No erythema or exudates. No uvular edema. No uvular , palatal, or tonsillar deviation. Airway patent. Nasal turbinates appear normal without nasal blood, purulent drainage or septal hematoma. CARDIOVASCULAR: Regular rate and rhythm without murmurs, gallops, or rubs. Bilateral radial and pedal pulses are 2+ RESPIRATORY: Breath sounds equal bilaterally. No accessory muscle use. Lungs sounds are clear to auscultation. GASTROINTESTINAL: Abdomen soft, non-tender, nondistended. MUSCULOSKELETAL: No cyanosis, or edema. BACK: Nontender without obvious deformity. No CVA tenderness. NEUROLOGICAL: Awake and alert. Normal speech. Patient is oriented to person and place. Patient has left arm drift noted and unable to complete finger-nose with left arm. He does ignore the left side. Bilateral lower extremity strength is 5/5. [id number] is normal bilaterally. Right upper extremity strength 5/5 with mild difficulty with finger to nose. No facial droop noted. NIH stroke scale of 6. Data Data Last Documented VS Vital Signs Date Time Temp Pulse Resp B/P (MAP) Pulse Ox O2 Delivery O2 Flow Rate FiO2 03/10/17 15:18 79 22 159/70 (99) 98 03/10/17 15:09 Room Air 03/10/17 14:03 98.5 Orders Orders Electrocardiogram (03/10/17 14:13) Prothrombin Time / Inr (Pt) (03/10/17 14:13) Act Partial Throm Time (Ptt) (03/10/17 14:13) Complete Blood Count With Diff (03/10/17 14:13) Comprehensive Metabolic Panel (03/10/17 14:13) Creatine Kinase (Cpk) (03/10/17 14:13) Troponin I (03/10/17 14:13) Urinalysis - C+S If Indicated (03/10/17 14:13) Ct Brain W/O Iv Contrast(Rout) (03/10/17 14:13) Chest, Single Ap (03/10/17 14:13) Ecg Monitoring (03/10/17 14:13) Iv Access Insert/Monitor (03/10/17 14:13) Oximetry (03/10/17 14:13) Sodium Chloride 0.9% Flush (Ns Flush) (03/10/17 14:15) Nicardipine Inj (Cardene Inj) (03/10/17 15:00) Mannitol Inj (Mannitol Inj) (03/10/17 15:00) Consult Neurosurgery (03/10/17 ) Cta Brain W Iv Contrast W 3d (03/10/17 ) Admit Order (Ed Use Only) (03/10/17 15:12) Labs Laboratory Tests Test 03/10/17 14:20 White Blood Count 18.1 TH/MM3 Red Blood Count 4.61 MIL/MM3 Hemoglobin 13.9 GM/DL Hematocrit 41.7 % Mean Corpuscular Volume 90.6 FL Mean Corpuscular Hemoglobin 30.2 PG Mean Corpuscular Hemoglobin Concent 33.4 % Red Cell Distribution Width 13.1 % Platelet Count 303 TH/MM3 Mean Platelet Volume 7.6 FL Neutrophils (%) (Auto) 87.0 % Lymphocytes (%) (Auto) 6.2 % Monocytes (%) (Auto) 6.7 % Eosinophils (%) (Auto) 0.0 % Basophils (%) (Auto) 0.1 % Neutrophils # (Auto) 15.7 TH/MM3 Lymphocytes # (Auto) 1.1 TH/MM3 Monocytes # (Auto) 1.2 TH/MM3 Eosinophils # (Auto) 0.0 TH/MM3 Basophils # (Auto) 0.0 TH/MM3 CBC Comment DIFF FINAL Differential Comment Blood Urea Nitrogen 17 MG/DL Creatinine 0.87 MG/DL Random Glucose 125 MG/DL Albumin 4.0 GM/DL Calcium Level 9.8 MG/DL Aspartate Amino Transf (AST/SGOT) 17 U/L Sodium Level 135 MEQ/L Potassium Level 4.2 MEQ/L Chloride Level 103 MEQ/L Carbon Dioxide Level 23.1 MEQ/L Anion Gap 9 MEQ/L Estimat Glomerular Filtration Rate 85 ML/MIN [facility] Medical Decision Making Medical Screen Exam Complete: Yes Emergency Medical Condition: Yes Medical Record Reviewed: Yes Interpretation(s) CT brain - CONCLUSION: 1. Large right temporal hemorrhage with mass effect and right to left midline shift of 5 mm. 2. Right-sided subdural hemorrhage and intraventricular hemorrhage. Differential Diagnosis CVA versus TIA versus intracranial hemorrhage versus ACS versus electrolyte abnormality Narrative Course 76-year-old male presents to the emergency department for neuro symptoms. Last seen normal yesterday morning at 8 AM. CBC, CMP, CK, troponin, PTT, PT/INR, UA are ordered and pending. CT of the brain is ordered and pending. Chest x-ray is ordered and pending. CT of the brain shows large right temporal hemorrhage with mass effect and right to left midline shift of 5 mm; Right-sided subdural hemorrhage and intraventricular hemorrhage. [id number] - I spoke with ELEONORA Osborne for Dr. Hernández, neurosurgeon who would like patient to receive mannitol [address] Hernández. Admit to critical care. Circuit Breaker Supervisor is paged for admission. Cardene gtt is started for bp control. Dr. Washington accepted admission. Diagnosis Primary Impression: Intracranial hemorrhage Admitting Information Admitting Physician Requests: Admit Harini Boone Mar 10, 2017 14:22
--- NOTE | 2017-03-10 14:49 | RADRPT ---
EXAM DATE/TIME: 03/10/2017 14:38 [facility] COMPARISON: No previous studies available for comparison. INDICATIONS : Left sided weakness RADIATION DOSE: 38.94 CTDIvol (mGy) MEDICAL HISTORY : Hypertension. SURGICAL HISTORY : None. ENCOUNTER: Initial ACUITY: 1 day PAIN SCALE: 0/10 LOCATION: distal TECHNIQUE: Multiple contiguous axial images were obtained of the head. Using automated exposure control and adj ustment of the mA and/or kV according to patient size, radiation dose was kept as low as reasonably a chievable to obtain optimal diagnostic quality images. DICOM format image data is available electro nically for review and comparison. FINDINGS: CEREBRUM: Large right temporal hemorrhage measuring 6.4 x 3.4 cm. Vasogenic edema mass effect with right to lef t midline shift of 5 mm. There is intraventricular hemorrhage. There is also extra-axial hemorrhage o n the right likely subdural. Minimal hemorrhage along the right tentorium as well. There is compressi on upon the temporal horn of the right lateral ventricle. POSTERIOR FOSSA: The cerebellum and brainstem are intact. The 4th ventricle is midline. The cerebellopontine angle i s unremarkable. EXTRACRANIAL: The visualized portion of the orbits is intact. SKULL: The calvaria is intact. No evidence of skull fracture. CONCLUSION: 1. Large right temporal hemorrhage with mass effect and right to left midline shift of 5 mm. 2. Right-sided subdural hemorrhage and intraventricular hemorrhage. Dr. Pizarro notified of these findings. Jesus Wilkerson MD on March 10, 2017 at 14:43 Board Certified Radiologist. This report was verified electronically.
[2017-03-10] MEDS ORDERED: MANNITOL 12.5 GM/50 ML VIAL IV ONE (15:00)
[2017-03-10] MEDS ORDERED: niCARdipine INJ 25 MG in SODIUM CHLOR 0.9% 250 ML INJ 240 ML IV ONE (15:00)
[2017-03-10 15:02] LABS: AUTOMATED NEUTROPHIL # 15.7 TH/MM3 (1.8-7.7); BASOPHIL % 0.1 % (0.0-2.0); HEMATOCRIT 41.7 % (39.0-51.0); HEMO FLAGS DIFF FINAL; LYMPH % 6.2 % (9.0-44.0); LYMPHOCYTE # 1.1 TH/MM3 (1.0-4.8); MEAN CELL VOLUME 90.6 FL (80.0-100.0); MEAN CORPUSCULAR HEMOGLOBIN 30.2 PG (27.0-34.0); MEAN CORPUSCULAR HGB CONC 33.4 % (32.0-36.0); MONO % 6.7 % (0.0-8.0); PLATELET COUNT 303 TH/MM3 (150-450); RED BLOOD COUNT 4.61 MIL/MM3 (4.50-5.90); RED CELL DISTRIBUTION WIDTH 13.1 % (11.6-17.2); WHITE BLOOD COUNT 18.1 TH/MM3 (4.0-11.0)
--- NOTE | 2017-03-10 15:11 | PD ---
Physical Exam Narrative I, Dr. Pizarro, have reviewed the advance practice practitioner's documentation and am in agreement, met with the patient face to face, made the diagnosis, and the medical decision making was done by me. *My assessment and Findings: ICH vs. CVA 76yo M with PMH of HTN here with c/o right sided headache yesterday. said he woke up with left arm and leg weakness. She said he hit fall and briefly hit his head while trying to get back on the bed today. Said he also urinated on himself which is new. Pt is AAOx [address] brain showed large right temporal hemorrhage with mass effect and right to left midline shift of 5mm. Right subdural hemorrhage and intraventricular hemorrhage. BP 168/77. Nicardipine drip ordered. Dr. Hernández consulted and mannitol given and plan is to take pt for right sided craniotomy. [employer] Sales Representative called. Pt is maintaining his airway at this time and is awake and alert with 97% saturation on RA. Dr. Hernández is at bedside right now and wanted CTA brain and neck after evaluation of the patient as well as keppra for seizure prophylaxis. Keppra IV ordered. Discussed with Dr. Washington and accepted to ICU under his service. Labs reviewed, leukocytosis at 18.1. Glucose 125. Creatinine normal at 0.87. Troponin negative. CXR negative. Data Data Last Documented VS Vital Signs Date Time Temp Pulse Resp B/P (MAP) Pulse Ox O2 Delivery O2 Flow Rate FiO2 03/10/17 15:15 80 159/70 03/10/17 15:09 16 99 Room Air 03/10/17 14:03 98.5 Orders Orders Electrocardiogram (03/10/17 14:13) Prothrombin Time / Inr (Pt) (03/10/17 14:13) Act Partial Throm Time (Ptt) (03/10/17 14:13) Complete Blood Count With Diff (03/10/17 14:13) Comprehensive Metabolic Panel (03/10/17 14:13) Creatine Kinase (Cpk) (03/10/17 14:13) Troponin I (03/10/17 14:13) Urinalysis - C+S If Indicated (03/10/17 14:13) Ct Brain W/O Iv Contrast(Rout) (03/10/17 14:13) Chest, Single Ap (03/10/17 14:13) Ecg Monitoring (03/10/17 14:13) Iv Access Insert/Monitor (03/10/17 14:13) Oximetry (03/10/17 14:13) Sodium Chloride 0.9% Flush (Ns Flush) (03/10/17 14:15) Nicardipine Inj (Cardene Inj) (03/10/17 15:00) Mannitol Inj (Mannitol Inj) (03/10/17 15:00) Consult Neurosurgery (03/10/17 ) Cta Brain W Iv Contrast W 3d (03/10/17 ) Admit Order (Ed Use Only) (03/10/17 15:12) Labs Laboratory Tests Test 03/10/17 01:30 03/10/17 14:20 Nasal Screen MRSA (PCR) MRSA NOT DETECTED White Blood Count 18.1 TH/MM3 Red Blood Count 4.61 MIL/MM3 Hemoglobin 13.9 GM/DL Hematocrit 41.7 % Mean Corpuscular Volume 90.6 FL Mean Corpuscular Hemoglobin 30.2 PG Mean Corpuscular Hemoglobin Concent 33.4 % Red Cell Distribution Width 13.1 % Platelet Count 303 TH/MM3 Mean Platelet Volume 7.6 FL Neutrophils (%) (Auto) 87.0 % Lymphocytes (%) (Auto) 6.2 % Monocytes (%) (Auto) 6.7 % Eosinophils (%) (Auto) 0.0 % Basophils (%) (Auto) 0.1 % Neutrophils # (Auto) 15.7 TH/MM3 Lymphocytes # (Auto) 1.1 TH/MM3 Monocytes # (Auto) 1.2 TH/MM3 Eosinophils # (Auto) 0.0 TH/MM3 Basophils # (Auto) 0.0 TH/MM3 CBC Comment DIFF FINAL Differential Comment Blood Urea Nitrogen 17 MG/DL Creatinine 0.87 MG/DL Random Glucose 125 MG/DL Total Protein 8.2 GM/DL Albumin 4.0 GM/DL Calcium Level 9.8 MG/DL Alkaline Phosphatase 78 U/L Aspartate Amino Transf (AST/SGOT) 17 U/L Alanine Aminotransferase (ALT/SGPT) 25 U/L Total Bilirubin 0.8 MG/DL Sodium Level 135 MEQ/L Potassium Level 4.2 MEQ/L Chloride Level 103 MEQ/L Carbon Dioxide Level 23.1 MEQ/L Anion Gap 9 MEQ/L Estimat Glomerular Filtration Rate 85 ML/MIN Total Creatine Kinase 84 U/L Troponin I LESS THAN 0.02 NG/ML [facility] Supervised Visit with AC: Yes Interpretation(s) EKG: NSR 78bpm. Normal axis. No ST segment elevation or depression. Critical Care Narrative Aggregate critical care time was 40 minutes. Time to perform other separately billable procedures was not included in the critical care time. My time did not include minutes spent treating any other patients simultaneously or on activities that did not directly contribute to the patient's treatment. The services I provided to this patient were to treat and/or prevent clinically significant deterioration that could result in: cardiovascular collapse or . I provided critical care services requiring my management, as noted below: Chart data review, documentation time, medication orders and management, vital sign assessments/reviewing monitor data, ordering and reviewing lab tests, ordering and interpreting/reviewing x-rays and diagnostic studies, care of the patient and discussion of the patient with the admitting physicians. Diagnosis Primary Impression: Subdural hematoma, acute Admitting Information Admitting Physician Requests: Georgina Chen DO Mar 10, 2017 15:11
[2017-03-10 15:14] LABS: ANION GAP 9 MEQ/L (5-15); AST (GOT) 17 U/L (15-37); BICARBONATE 23.1 MEQ/L (21.0-32.0); BLOOD UREA NITROGEN 17 MG/DL (7-18); CHLORIDE 103 MEQ/L (98-107); GLOMERULAR FILTRATION RATE 85 ML/MIN (>89); POTASSIUM 4.2 MEQ/L (3.5-5.1); SODIUM (NA) 135 MEQ/L (136-145)
[2017-03-10 15:17] LABS: ALKALINE PHOSPHATASE 78 U/L (45-117); ALT (GPT) 25 U/L (12-78); TOTAL BILIRUBIN ADULT 0.8 MG/DL (0.2-1.0)
--- NOTE | 2017-03-10 15:20 | RADRPT ---
EXAM DATE/TIME: 03/10/2017 15:02 [facility] COMPARISON: CHEST SINGLE AP, April 01, 2015, 12:58. INDICATIONS : Short of breath. MEDICAL HISTORY : Hypertension. CVA. SURGICAL HISTORY : None. ENCOUNTER: Initial ACUITY: 1 day PAIN SCORE: 0/10 LOCATION: Bilateral chest FINDINGS: No significant new focal pleural or parenchymal opacities. Cardiomediastinal contours are stable. Bon y thorax is intact. CONCLUSION: 1. No acute abnormality or significant interval change. Zaid Maria MD on March 10, 2017 at 15:17 Board Certified Radiologist. This report was verified electronically.
[2017-03-10 15:22] LABS: CREATINE KINASE 84 U/L (39-308)
--- NOTE | 2017-03-10 15:56 | PD.CONS ---
(Travis Hernández MD) [facility] Service neurosurgery Consult Requested By dr Pizarro Reason for Consult Intracerebral hemorrhage Primary Care Physician Mo Barnett M.D. History of Present Illness Laura is a 76-year-old male past medical history for hypertension, hyperlipidemia presents to the emergency department via EMS with new onset left sided weakness. According to EMS, the patient woke up yesterday morning around 8 AM complaining of a right-sided headache. He state in bed yesterday and rested. This morning when he woke up, his noticed that he was able to talk. According to EMS, last time seen normal was 8 AM yesterday morning. The patient is alert. He is oriented to person and place. He is not oriented to year, but does remember that the month is February. He reports sided headache. no seizure activity. No tongue bitting. No incontinence of stool or urine. He denies any fevers or chills. No chest pain or shortness of breath. No abdominal pain. No nausea, vomiting, diarrhea. He does have history of TIA. According to chart, he also has history of intracranial hemorrhage. CT brain showed a right temporal hemorrhage. Neurosurgical consultation was requested (Travis Hernández MD) Review of Systems Constitutional: DENIES: Fever, Chills Cardiovascular: DENIES: Chest pain Gastrointestinal: DENIES: Nausea, Vomiting Neurologic: COMPLAINS OF: Headache, Localized weakness, Paresthesias (Judi Dasilva) Past Family Social History Allergies: Coded Allergies: No Known Drug Allergies (Verified Allergy, Unknown, 01/21/17) Past Medical History High Cholesterol Hypertension Osteoarthritis Past Surgical History Right hip replacement Tonsillectomy Reported Medications reviewed in EMR Active Ordered Medications Current Medications Medications (Trade) Dose Ordered Sig/Harrison Route PRN Reason Start Time Stop Time Status Last Admin Dose Admin Sodium Chloride 1,000 ml @ 84 mls/hr [id number] IV 03/10/17 16:08 Sodium Chloride (NS Flush) 2 ml UNSCH PRN IV FLUSH FLUSH AFTER USING IV ACCESS 03/10/17 16:15 UNV Sodium Chloride (NS Flush) 2 ml BID IV FLUSH 03/10/17 21:00 UNV Acetaminophen (Tylenol) 650 mg Q6H PRN PO PAIN 1-10 AND/OR FEVER >101F 03/10/17 16:15 Famotidine (Pepcid Inj) 20 mg Q12HR IV PUSH 03/10/17 21:00 UNV Ondansetron HCl (Zofran Inj) 4 mg Q6H PRN IV PUSH NAUSEA OR VOMITING 03/10/17 16:15 UNV Albuterol/ Ipratropium (Duoneb Neb) 1 ampule Q4HR NEB PRN INH WHEEZING 03/10/17 16:15 UNV Miscellaneous Information 1 [id number] XX 03/10/17 16:15 Chlorhexidine Gluconate (Chlorhexidine 2% Cloth) 3 pack Taper DAILY@04 TOP 03/11/17 04:00 03/07/18 03:59 Chlorhexidine Gluconate (Chlorhexidine 2% Cloth) 3 pack UNSCH PRN TOP HYGIENIC CARE 03/10/17 16:15 UNV Senna/Docusate Sodium (Donna-Colace) 1 tab BID PO 03/10/17 21:00 UNV Magnesium Hydroxide (Milk Of Magnesia Liq) 30 ml Q12H PRN PO Mild constipation 03/10/17 16:15 UNV Sennosides (Senokot) 17.2 mg Q12H PRN PO Moderate constipation 03/10/17 16:15 UNV Bisacodyl (Dulcolax Supp) 10 mg DAILY PRN RECTAL SEVERE CONSITIPATION 03/10/17 16:15 Lactulose (Lactulose Liq) 30 ml DAILY PRN PO SEVERE CONSITIPATION 03/10/17 16:15 UNV Family History Reports family history of hyperlipidemia Social History denies tobacco, etoh, or illicit drug use (Judi Dasilva) Physical Exam Vital Signs Vital Signs Date Time Temp Pulse Resp B/P (MAP) Pulse Ox O2 Delivery O2 Flow Rate FiO2 03/10/17 15:33 87 164/63 03/10/17 15:29 85 22 152/72 (98) 96 03/10/17 15:18 79 22 159/70 (99) 98 03/10/17 15:15 80 159/70 03/10/17 15:09 76 16 168/77 (107) 99 Room Air 03/10/17 15:00 75 174/73 03/10/17 14:03 98.5 78 23 168/77 (107) Physical Exam The patient is alert, awake and oriented to time, place and person. Speech is fluent. Higher cognitive functions are normal. Cranial nerve examination demonstrates the pupils to be equal, round, and reactive to light. Extra-ocular movements are intact. Facial motor function shows a left supranuclear facial droop Gross hearing is intact, bilaterally. The uvula is midline and elevates symmetrically with the soft palate. Sternocleidomastoid and trapezius muscles have normal and symmetrical strength. Other cranial nerves are intact. Neck is soft and supple. Cervical spine has a full range of motion in anterior flexion, extension, lateral bending, and rotation without pain. There is no tenderness to palpation to the spinous processes or paraspinal muscles. Muscle testing reveals normal bulk and tone overall without rigidity, spasticity , fasciculations, or atrophy. Muscle strength is 5/5 in all muscle groups of right upper extremity with proximal for up to 5 strength in the left upper extremity, and to L2-5 in his hand. In the lower extremities, strength is 5/5 in his right iliopsoas, quadriceps, hamstrings, plantar flexion, dorsiflexion, and extensor hallicus longus with 3 up to 5 on the left. Sensory examination is intact to light touch and sharp/dull discrimination in right the upper and lower extremities, and decreasing on the left. Deep tendon reflexes are 2+ and symmetrical in the biceps, triceps, and brachioradialis, bilaterally, in the upper extremities. In the lower extremities , the patellar and Achilles are 2+, bilaterally. There is a bilateral plantar flexion response. Hoffmanns sign is negative. There is no clonus or other abnormal reflexes noted. Cerebellar examination is intact to [id number] test, rapid rhythmic alternating motion on the right side. There is no dysmetria, dysdiadochokinesia , truncal ataxia,. Unable to test on the left side Laboratory Laboratory Tests Test 03/10/17 14:20 White Blood Count 18.1 Red Blood Count 4.61 Hemoglobin 13.9 Hematocrit 41.7 Mean Corpuscular Volume 90.6 Mean Corpuscular Hemoglobin 30.2 Mean Corpuscular Hemoglobin Concent 33.4 Red Cell Distribution Width 13.1 Platelet Count 303 Mean Platelet Volume 7.6 Neutrophils (%) (Auto) 87.0 Lymphocytes (%) (Auto) 6.2 Monocytes (%) (Auto) 6.7 Eosinophils (%) (Auto) 0.0 Basophils (%) (Auto) 0.1 Neutrophils # (Auto) 15.7 Lymphocytes # (Auto) 1.1 Monocytes # (Auto) 1.2 Eosinophils # (Auto) 0.0 Basophils # (Auto) 0.0 CBC Comment DIFF FINAL Differential Comment Blood Urea Nitrogen 17 Creatinine 0.87 Random Glucose 125 Total Protein 8.2 Albumin 4.0 Calcium Level 9.8 Alkaline Phosphatase 78 Aspartate Amino Transf (AST/SGOT) 17 Alanine Aminotransferase (ALT/SGPT) 25 Total Bilirubin 0.8 Sodium Level 135 Potassium Level 4.2 Chloride Level 103 Carbon Dioxide Level 23.1 Anion Gap 9 Estimat Glomerular Filtration Rate 85 Total Creatine Kinase 84 Troponin I LESS THAN 0.02 (Travis Hernández MD) Result Diagram: 03/10/17 1420 03/10/17 1420 Imaging Last [address] 03/10/17 1413 Signed Impressions: Service Date/Time: Friday, March 10, 2017 14:38 - CONCLUSION: 1. Large right temporal hemorrhage with mass effect and right to left midline shift of 5 mm. 2. Right-sided subdural hemorrhage and intraventricular hemorrhage. Dr. Pizarro notified of these findings. Jesus Wilkerson MD Chest X-Ray 03/10/17 1413 Signed Impressions: Service Date/Time: Friday, March 10, 2017 15:02 - CONCLUSION: 1. No acute abnormality or significant interval change. Zaid Maria MD (Travis Hernández MD) Assessment and Plan Assessment and Plan Caprini VTE Risk Assessment Caprini VTE Risk Assessment Caprini VTE Risk Assessment: Mod/High Risk (score >= 2) VTE Pharm Contraindication: Hemorrhage Caprini Risk Assessment Model Point Value = 1 Point Value = 2 Point Value = 3 Point Value = 5 Age 41-60 Minor surgery BMI > 25 kg/m2 Swollen legs Varicose veins or History of unexplained or recurrent spontaneous Oral contraceptives or hormone replacement Sepsis (< 1 month) Serious lung disease, including pneumonia (< 1 month) Abnormal pulmonary function Acute myocardial infarction Congestive heart failure (< 1 month) History of inflammatory bowel disease Medical patient at bed rest Age 61-74 Arthroscopic surgery Major open surgery (> 45 min) Laparoscopic surgery (> 45 min) Malignancy Confined to bed (> 72 hours) Immobilizing plaster cast Central venous access Age >= 75 History of VTE Family history of VTE Factor V Leiden Prothrombin [id number] Lupus anticoagulant Anticardiolipin antibodies Elevated serum homocysteine Heparin-induced thrombocytopenia Other congenital or acquired thrombophilia Stroke (< 1 month) Elective arthroplasty Hip, pelvis, or leg fracture Acute spinal cord injury (< 1 month) Prophylaxis Regimen Total Risk Factor Score Risk Level Prophylaxis Regimen 0-1 Low Early ambulation 2 Moderate Order ONE of the following: *Sequential Compression Device (SCD) *Heparin 5000 units SQ BID 3-4 Higher Order ONE of the following medications: *Heparin 5000 units SQ TID *Enoxaparin/Lovenox 40 mg SQ daily (WT < 150 kg, CrCl > 30 mL/min) *Enoxaparin/Lovenox 30 mg SQ daily (WT < 150 kg, CrCl > 10-29 mL/min) *Enoxaparin/Lovenox 30 mg SQ BID (WT < 150 kg, CrCl > 30 mL/min) AND/OR *Sequential Compression Device (SCD) 5 or more Highest Order ONE of the following medications: *Heparin 5000 units SQ TID (Preferred with Epidurals) *Enoxaparin/Lovenox 40 mg SQ daily (WT < 150 kg, CrCl > 30 mL/min) *Enoxaparin/Lovenox 30 mg SQ daily (WT < 150 kg, CrCl > 10-29 mL/min) *Enoxaparin/Lovenox 30 mg SQ BID (WT < 150 kg, CrCl > 30 mL/min) AND *Sequential Compression Device (SCD) (Travis Hernández MD) Attending Statement Right temporal lobe hematoma. neuro checks in a serial fashion. Recommend stat CT drain.. MRI brain keppra for sz prophylaxis. Uncontrolled arterial hypertension. We will start Cardene drip with a goal to maintain the systolic blood pressure less than 160 Hypokalemia. Potasium replacement Electrolytes replacement per ICU protocol Endocrine. Monitor serial Acu checks and SSI as needed in detail Nutrition. NPO Renal. monitor closely urine output, BUN and creatinine ID monitor for signs of infection Protonix for stress ulcer prophylaxis Sotero hose and SCD's for DVT prophylaxis, - No pharmacological DVT prophylaxis due to traumatic ICH Further recommendations will be provided depending on the patient's clinical evaluation and follow up studies. (Travis Hernández MD) Travis Hernández MD Mar 10, 2017 15:56 Judi Dasilva Mar 10, 2017 16:34
[2017-03-10] MEDS ORDERED: SODIUM CHLOR 0.9% 1000 ML INJ 1,000 ML IV SCH (16:08)
[2017-03-10] MEDS ORDERED: IOHEXOL 350 MG/ML 10 ML VIAL (for RAD DIAG) IVCONTRAST ONE (16:14)
[2017-03-10] MEDS ORDERED: ACETAMINOPHEN 325 MG TAB PO PRN (16:15)
[2017-03-10] MEDS ORDERED: RESP: ALBUTEROL 2.5 MG/IPRATROPIUM 0.5 MG NEB (PRN) INH (16:15)
[2017-03-10] MEDS ORDERED: ONDANSETRON HCL 4 MG/2 ML VIAL IV PUSH PRN (16:15)
[2017-03-10] MEDS ORDERED: SENNOSIDES 8.6 MG TAB PO PRN (16:15)
[2017-03-10] MEDS ORDERED: LACTULOSE SYRUP 20 GM/30 ML CUP PO PRN (16:15)
[2017-03-10] MEDS ORDERED: SODIUM CHLORIDE 0.9% FLUSH 10 ML FLUSH IV FLUSH PRN (16:15)
[2017-03-10] MEDS ORDERED: BISACODYL 10 MG SUPP RECTAL PRN (16:15)
[2017-03-10] MEDS ORDERED: CHLORHEXIDINE GLUCONATE 2 % 1 PACK (2 CLOTHS) TOP PRN (16:15)
[2017-03-10] MEDS ORDERED: MAGNESIUM HYDROXIDE SUSP 30 ML CUP PO PRN (16:15)
[2017-03-10] MEDS ORDERED: MISCELLANEOUS NURSING INFORMATION XX SCH (16:15)
[2017-03-10] MEDS ORDERED: levETIRAcetam INJ 100 ML IV ONE (16:45)
--- NOTE | 2017-03-10 16:55 | HHI.HP ---
HPI Service Critical Care Medicine Primary Care Physician Mo Barnett M.D. Admission Diagnosis Subdural hematoma Diagnosis: Travel History International Travel<30 Days: No Contact w/Intl Traveler <30 Da: No Traveled to Known Affected Are: No History of Present Illness Herniated year-old male with a medical history significant for hypertension, hyperlipidemia, prior history of right temporal intracranial hemorrhage in January 2011 who developed right sided headache around 8 AM one day prior to his arrival on 03/09/17 in the morning. He pretty much stayed in bed all day. noticed that he was dragging his left leg while walking to the bathroom yesterday evening and also appeared to have some weakness in the left upper extremity. He was responding appropriately at the time however was slightly slow and drowsy. This morning on waking up patient's noticed that he was worse in terms of his neurologic status in more drowsy with persistent headache and decreased movement in left upper extremity hence EMS was called and patient was brought to the ER. Head CT done in ER revealed right temporal intraparenchymal hemorrhage. Dr. Hernández from neurosurgery was contacted and requested admission to critical care medicine service to the ICU with neurosurgery consult. I evaluated the patient in the ER after being notified of the consult with Dr. Hernández being at the bedside at the time as well. History was obtained by reviewing records and discussion with patient's and Dr. Hernández at the bedside. Patient was awake and alert and following commands with what appeared to be sensory inattention on the left side though he was moving all 4 extremities. History PFSH Past Medical History Cancer: No Cardiovascular Problems: No High Cholesterol: Yes Chemotherapy: No Diabetes: No Endocrine: No Gastrointestinal Disorders: No Genitourinary: No Headaches: Yes Hepatitis: No Hiatal Hernia: No Hypertension: Yes Immune Disorder: No Implanted Vascular Access Dvce: No Musculoskeletal: Yes (OA) Neurologic: No Psychiatric: No Reproductive: No Respiratory: No Radiation Therapy: No Thyroid Disease: No Past Surgical History Abdominal Surgery: No AICD: No Body Medical Devices: NONE Cardiac Surgery: No Ear Surgery: No Eye Surgery: No Genitourinary Surgery: No Gynecologic Surgery: No Joint Replacement: Yes (right hip) Oral Surgery: Yes (T&A AGE 18) Pacemaker: No Thoracic Surgery: No Tonsillectomy: Yes Other Surgery: Yes Family History Family Hypercholesterolemia: Yes Social History Alcohol Use: Yes Tobacco Use: No Substance Use: No Allergies-Medications Allergies-Medications (Allergen,Severity, Reaction): Coded Allergies: No Known Drug Allergies (Verified Allergy, Unknown, 01/21/17) Reported Meds & Prescriptions Reported Meds & Active Scripts Active Commode 3-in-1 (Device) 1 Mis Mis Ea .ROUTE DIRECTED Walker with Front Wheels (Device) 1 Mis Mis Ea .ROUTE DIRECTED CPM-Continuous Passive Motion Machine 1 Ea Device Ea .ROUTE DIRECTED Reported Diltiazem ER 24 HR 240 Mg Eligio 240 Mg PO DAILY Past Family Social History Allergies: Coded Allergies: No Known Drug Allergies (Verified Allergy, Unknown, 01/21/17) Physical Exam Vital Signs Vital Signs Date Time Temp Pulse Resp B/P (MAP) Pulse Ox O2 Delivery O2 Flow Rate FiO2 03/10/17 15:33 87 164/63 03/10/17 15:29 85 22 152/72 (98) 96 03/10/17 15:18 79 22 159/70 (99) 98 03/10/17 15:15 80 159/70 03/10/17 15:09 76 16 168/77 (107) 99 Room Air 03/10/17 15:00 75 174/73 03/10/17 14:03 98.5 78 23 168/77 (107) Physical Exam ROS Review of Systems Except as stated in HPI: all other systems reviewed are Neg Narrative GENERAL: Well-nourished, well-developed male patient, afebrile. SKIN: Focused skin assessment warm/dry. HEAD: Normocephalic. Atraumatic. EYES: No scleral icterus. No injection or drainage. PERRLA. NECK: Supple, trachea midline. No JVD or lymphadenopathy. ENT: Mucosa pink and moist. No erythema or exudates. No uvular edema. No uvular , palatal, or tonsillar deviation. Airway patent. Nasal turbinates appear normal without nasal blood, purulent drainage or septal hematoma. CARDIOVASCULAR: Regular rate and rhythm without murmurs, gallops, or rubs. Bilateral radial and pedal pulses are 2+ RESPIRATORY: Breath sounds equal bilaterally. No accessory muscle use. Lungs sounds are clear to auscultation. GASTROINTESTINAL: Abdomen soft, non-tender, nondistended. MUSCULOSKELETAL: No cyanosis, or edema. BACK: Nontender without obvious deformity. No CVA tenderness. NEUROLOGICAL: Awake and alert. Normal speech. Patient is oriented to person and place. Pupils 3 mm bilaterally reacting actively to light, Subtle left- sided facial weakness, Patient has left arm drift noted and unable to complete finger-nose with left arm. He does ignore the left side. Bilateral lower extremity strength is 5/5. [id number] is normal bilaterally. Right upper extremity strength 5/5 with mild difficulty with finger to nose. Laboratory Laboratory Tests Test 03/10/17 14:20 White Blood Count 18.1 Red Blood Count 4.61 Hemoglobin 13.9 Hematocrit 41.7 Mean Corpuscular Volume 90.6 Mean Corpuscular Hemoglobin 30.2 Mean Corpuscular Hemoglobin Concent 33.4 Red Cell Distribution Width 13.1 Platelet Count 303 Mean Platelet Volume 7.6 Neutrophils (%) (Auto) 87.0 Lymphocytes (%) (Auto) 6.2 Monocytes (%) (Auto) 6.7 Eosinophils (%) (Auto) 0.0 Basophils (%) (Auto) 0.1 Neutrophils # (Auto) 15.7 Lymphocytes # (Auto) 1.1 Monocytes # (Auto) 1.2 Eosinophils # (Auto) 0.0 Basophils # (Auto) 0.0 CBC Comment DIFF FINAL Differential Comment Blood Urea Nitrogen 17 Creatinine 0.87 Random Glucose 125 Total Protein 8.2 Albumin 4.0 Calcium Level 9.8 Alkaline Phosphatase 78 Aspartate Amino Transf (AST/SGOT) 17 Alanine Aminotransferase (ALT/SGPT) 25 Total Bilirubin 0.8 Sodium Level 135 Potassium Level 4.2 Chloride Level 103 Carbon Dioxide Level 23.1 Anion Gap 9 Estimat Glomerular Filtration Rate 85 Total Creatine Kinase 84 Troponin I LESS THAN 0.02 Result Diagram: 03/10/17 14203/10/17 142 Caprini VTE Risk Assessment Caprini VTE Risk Assessment: Mod/High Risk (score >= 2) VTE Pharm Contraindication: Intracranial lesions (ICH) Caprini Risk Assessment Model Point Value = 1 Point Value = 2 Point Value = 3 Point Value = 5 Age 41-60 Minor surgery BMI > 25 kg/m2 Swollen legs Varicose veins or History of unexplained or recurrent spontaneous Oral contraceptives or hormone replacement Sepsis (< 1 month) Serious lung disease, including pneumonia (< 1 month) Abnormal pulmonary function Acute myocardial infarction Congestive heart failure (< 1 month) History of inflammatory bowel disease Medical patient at bed rest Age 61-74 Arthroscopic surgery Major open surgery (> 45 min) Laparoscopic surgery (> 45 min) Malignancy Confined to bed (> 72 hours) Immobilizing plaster cast Central venous access Age >= 75 History of VTE Family history of VTE Factor V Leiden Prothrombin [id number] Lupus anticoagulant Anticardiolipin antibodies Elevated serum homocysteine Heparin-induced thrombocytopenia Other congenital or acquired thrombophilia Stroke (< 1 month) Elective arthroplasty Hip, pelvis, or leg fracture Acute spinal cord injury (< 1 month) Prophylaxis Regimen Total Risk Factor Score Risk Level Prophylaxis Regimen 0-1 Low Early ambulation 2 Moderate Order ONE of the following: *Sequential Compression Device (SCD) *Heparin 5000 units SQ BID 3-4 Higher Order ONE of the following medications: *Heparin 5000 units SQ TID *Enoxaparin/Lovenox 40 mg SQ daily (WT < 150 kg, CrCl > 30 mL/min) *Enoxaparin/Lovenox 30 mg SQ daily (WT < 150 kg, CrCl > 10-29 mL/min) *Enoxaparin/Lovenox 30 mg SQ BID (WT < 150 kg, CrCl > 30 mL/min) AND/OR *Sequential Compression Device (SCD) 5 or more Highest Order ONE of the following medications: *Heparin 5000 units SQ TID (Preferred with Epidurals) *Enoxaparin/Lovenox 40 mg SQ daily (WT < 150 kg, CrCl > 30 mL/min) *Enoxaparin/Lovenox 30 mg SQ daily (WT < 150 kg, CrCl > 10-29 mL/min) *Enoxaparin/Lovenox 30 mg SQ BID (WT < 150 kg, CrCl > 30 mL/min) AND *Sequential Compression Device (SCD) Assessment and Plan Assessment and Plan 76-year-old male with: Right temporal intracerebral hemorrhage Cerebral edema with right to left midline shift Uncontrolled hypertension Plan: Neuro: Admit to ICU, follow neuro checks per protocol. Neurosurgery consult requested and patient has already been evaluated by Dr. Hernández. Received mannitol in ER. Starting 2% saline. Will obtain PICC line in case patient needs to be started on 3% saline for cerebral edema. Repeat head CT in a.m. to follow-up on ICH and cerebral edema. Follow serial sodium and serum osmolarity. Cardiovascular: Continue nicardipine gtt. to keep SBP less than 160 mmHg. Pulmonary: Supplemental O2 as needed. Currently protecting airway. A cerebral edema worsens with worsening neurologic status, may require endotracheal intubation for airway protection and hyperventilation. GI/liver: Nothing by mouth for now. Renal/: Strict intake output, monitor and replete electrolytes, follow BUN creatinine. Starting 2% saline at 60 cc per hour. Follow serial sodium and osmolarity. ID: Leukocytosis noted most likely reactive secondary to ICH. Hold off on any antibiotics at this time. Endocrine: SSI for glycemic control if needed. Heme: Follow CBC Prophylaxis: Pepcid IV, SCDs. Hold subcutaneous heparin until okay with neurosurgery. Discussed with Dr. Hernández at bedside, discussed with patient's family at bedside in detail regarding current clinical status and plan of care and they voiced understanding. I also explained possible need for endotracheal intubation if neurologic status worsens. Condition critical Time spent on critical care excluding procedures 60 minutes Familia Washington MD Mar 10, 2017 16:55
--- NOTE | 2017-03-10 17:09 | RADRPT ---
EXAM DATE/TIME: 03/10/2017 15:57 [facility] COMPARISON: CT BRAIN W/O CONTRAST, March 10, 2017, 14:38. CTA BRAIN W 3D RECON, March 18, 2011, 16:15. INDICATIONS : Left sided weakness, abnormal non-contrast brain CT. Evaluate AV malformation. IV CONTRAST: 74 cc Omnipaque 350 (iohexol) IV ; Cumulative dose for multiple exams. RADIATION DOSE: 56.12 CTDIvol (mGy) ; Combined studies MEDICAL HISTORY : Hypertension. SURGICAL HISTORY : None. ENCOUNTER: Initial ACUITY: 1 day PAIN SCALE: 5/10 LOCATION: Bilateral cranial TECHNIQUE: Volumetric scanning was performed using a multi-row detector CT scanner. The data was post processed with a variety of visualization algorithms including full volume maximum intensity projection, multi -planar sliding thin slab reformation, curved planar reformation, and surface rendering techniques. Using automated exposure control and adjustment of the mA and/or kV according to patient size, radiat ion dose was kept as low as reasonably achievable to obtain optimal diagnostic quality images. DICO M format image data is available electronically for review and comparison. FINDINGS: There is excellent visualization of the major intracranial arteries out to the second-order branch ve ssels. Focal mass effect with displacement is identified of the right middle cerebral artery branches. There is no evidence of associated aneurysm or vascular malformation. Small temporal lobe branches appear occluded. Left cerebral circulation and vertebral basilar vessels are unremarkable except for mild irregularity . CONCLUSION: 1. Large right temporal lobe hematoma. 2. No evidence of ruptured aneurysm or vascular malformation. 3. Significant mass effect on the right middle cerebral artery branches with possible small vessel oc clusions in the right temporal lobe. 4. Bilateral scribed disease identified in the left cerebral circulation and vertebral basilar vessel s. 5. No other significant abnormality. Branden Holloway MD on March 10, 2017 at 17:02 Board Certified Radiologist. This report was verified electronically.
--- NOTE | 2017-03-10 17:25 | RADRPT ---
EXAM DATE/TIME: 03/10/2017 15:57 [facility] COMPARISON: No previous studies available for comparison. INDICATIONS : Left sided weakness, abnormal non-contrast brain. IV CONTRAST: 74 cc Omnipaque 350 (iohexol) IV RADIATION DOSE: 56.12 CTDIvol (mGy) MEDICAL HISTORY : Hypertension. SURGICAL HISTORY : None. ENCOUNTER: Initial ACUITY: 1 day PAIN SCALE: 10/10 LOCATION: Bilateral neck Elevated flow velocities and ICA/CCA ratios have been found to correlate with increased degrees of vessel stenosis, calculated as percentage of diameter relative to a normal segment of distal ICA/CCA. TECHNIQUE: Volumetric scanning was performed using a multirow detector CT scanner. The data was post processed with a variety of visualization algorithms including full-volume maximum intensity projection, multip lanar sliding thin-slab reformation, curved-planar reformation, and surface-rendering techniques. Us ing automated exposure control and adjustment of the mA and/or kV according to patient size, radiatio n dose was kept as low as reasonably achievable to obtain optimal diagnostic quality images. DICOM f ormat image data is available electronically for review and comparison. FINDINGS: AORTIC ARCH: There is a two-vessel origin of the great vessels from the aorta. No evidence of ostial narrowing. RIGHT CAROTID: Eccentric calcified plaque is identified in the bifurcation. There is no significant stenosis involvi ng the common or internal carotid arteries. Focal narrowing is seen at the origin of the external car otid artery. LEFT CAROTID: Eccentric calcified plaque is identified in the distal left common carotid artery. Bifurcation widely patent without significant stenosis. VERTEBRALS: The vertebral arteries have a symmetric diameter. No stenotic lesions are seen. CONCLUSION: 1. Bilateral calcified carotid plaques. 2. No evidence of significant stenosis involving the common carotid arteries or internal carotid rusty mariana. 3. Focal stenosis at the origin of the right external carotid artery. 4. Patent vertebral arteries without evidence of proximal stenotic lesions. Branden Holloway MD on March 10, 2017 at 17:21 Board Certified Radiologist. This report was verified electronically.
[2017-03-10 17:36] LABS: BLOOD, URINE SMALL (NEG); GLUCOSE,URINE NEG (NEG); KETONE, URINE NEG (NEG); NITRITE,URINE NEG (NEG); URINE COLOR YELLOW (YELLW/STRAW)
[2017-03-10 17:37] LABS: COMMENT (UR) CATH-CULT NOT IND; CULTURE IF INDICATED CATH CULTURE NOT IND
[2017-03-10] MEDS: SODIUM CHLORIDE 23.4% INJ 188 MEQ in SODIUM CHLOR 0.9% 1000 ML INJ 1,000 ML IV SCH (19:06)
[2017-03-10] MEDS: FAMOTIDINE 20 MG/2 ML VIAL IV PUSH SCH (21:00)
[2017-03-10] MEDS: DOCUSATE SODIUM 50 MG/SENNA 8.6 MG TAB PO SCH (21:00)
[2017-03-10] MEDS: SODIUM CHLORIDE 0.9% FLUSH 10 ML FLUSH IV FLUSH SCH (21:00)
[2017-03-10] MEDS: CHLORHEXIDINE GLUCONATE 2 % 1 PACK (2 CLOTHS) TOP SCH (21:37)
[2017-03-10] MEDS: levETIRAcetam INJ 500 MG in SODIUM CHLORIDE 0.9% INJ 100 ML IV SCH (23:00)
[2017-03-10 23:05] LABS: APTT (PATIENT) 25.4 SEC (24.3-30.1); PROTHROMBIN TIME - PATIENT 10.2 SEC (9.8-11.6)
[2017-03-11] VITALS (13 sets, daily range): BP systolic 130–144; BP diastolic 57–69; PULSE 72–95; RESP 20–28; TEMP 97.5–100.6; O2SAT 90–99
[2017-03-11 05:13] LABS: AUTOMATED NEUTROPHIL # 14.7 TH/MM3 (1.8-7.7); BASOPHIL % 0.3 % (0.0-2.0); HEMATOCRIT 38.1 % (39.0-51.0); HEMO FLAGS DIFF FINAL; LYMPH % 6.1 % (9.0-44.0); LYMPHOCYTE # 1.1 TH/MM3 (1.0-4.8); MEAN CELL VOLUME 91.8 FL (80.0-100.0); MEAN CORPUSCULAR HEMOGLOBIN 30.6 PG (27.0-34.0); MEAN CORPUSCULAR HGB CONC 33.3 % (32.0-36.0); MONO % 8.6 % (0.0-8.0); PLATELET COUNT 286 TH/MM3 (150-450); RED BLOOD COUNT 4.15 MIL/MM3 (4.50-5.90); RED CELL DISTRIBUTION WIDTH 13.2 % (11.6-17.2); WHITE BLOOD COUNT 17.3 TH/MM3 (4.0-11.0)
[2017-03-11] MEDS: niCARdipine INJ 25 MG in SODIUM CHLOR 0.9% 250 ML INJ 240 ML IV PRN ×2 (05:32→20:31)
[2017-03-11 05:33] LABS: ALT (GPT) 21 U/L (12-78); ANION GAP 10 MEQ/L (5-15); AST (GOT) 23 U/L (15-37); BICARBONATE 20.1 MEQ/L (21.0-32.0); CHLORIDE 109 MEQ/L (98-107); GLOMERULAR FILTRATION RATE 96 ML/MIN (>89); MAGNESIUM 2.2 MG/DL (1.5-2.5); SODIUM (NA) 139 MEQ/L (136-145)
[2017-03-11 05:35] LABS: ALKALINE PHOSPHATASE 68 U/L (45-117); TOTAL BILIRUBIN ADULT 0.7 MG/DL (0.2-1.0)
[2017-03-11 05:37] LABS: BLOOD UREA NITROGEN 19 MG/DL (7-18)
--- NOTE | 2017-03-11 07:07 | RADRPT ---
EXAM DATE/TIME: 03/11/2017 06:38 [facility] COMPARISON: CT BRAIN W/O CONTRAST, March 10, 2017, 14:38. INDICATIONS : Subdural hematoma. RADIATION DOSE: 38.00 CTDIvol (mGy) MEDICAL HISTORY : Hypertension. SURGICAL HISTORY : None. ENCOUNTER: Subsequent ACUITY: 2 days PAIN SCALE: 5/10 LOCATION: cranial TECHNIQUE: Multiple contiguous axial images were obtained of the head. Using automated exposure control and adj ustment of the mA and/or kV according to patient size, radiation dose was kept as low as reasonably a chievable to obtain optimal diagnostic quality images. DICOM format image data is available electro nically for review and comparison. FINDINGS: CEREBRUM: Large right temporal hemorrhage is similar in size and appearance to prior exam. Blood tracking oscar g the right tentorium, effacement of the occipital and temporal horns on the right, intraventricular blood in the 3rd and right lateral ventricle and layering in the occipital horn on the left side is s table. Subarachnoid hemorrhage in the high convexity left parietal occipital is stable. There is al so some mild subarachnoid hemorrhage in the right posterior parietal region. Persistent midline shif t towards the left measures 6 mm. POSTERIOR FOSSA: The cerebellum and brainstem are intact. The 4th ventricle is midline. The cerebellopontine angle i s unremarkable. EXTRACRANIAL: The visualized portion of the orbits is intact. SKULL: The calvaria is intact. No evidence of skull fracture. CONCLUSION: Stable appearance to the right temporal hematoma, subdural, intraventricular, and subarachnoid blood with associated 6 mm midline shift towards the left. Sebastián Alonzo MD on March 11, 2017 at 7:02 Board Certified Radiologist. This report was verified electronically.
[2017-03-11] MEDS: DOCUSATE SODIUM 50 MG/SENNA 8.6 MG TAB PO SCH ×2 (09:00→21:00)
[2017-03-11] MEDS: levETIRAcetam INJ 500 MG in SODIUM CHLORIDE 0.9% INJ 100 ML IV SCH ×2 (11:20→20:30)
[2017-03-11] MEDS: FAMOTIDINE 20 MG/2 ML VIAL IV PUSH SCH ×2 (11:20→20:30)
[2017-03-11] MEDS: SODIUM CHLORIDE 0.9% FLUSH 10 ML FLUSH IV FLUSH SCH ×2 (11:20→21:00)
--- NOTE | 2017-03-11 11:48 | RADRPT ---
EXAM DATE/TIME: 03/11/2017 10:47 [facility] COMPARISON: CT BRAIN W/O CONTRAST, March 10, 2017, 14:38. CT BRAIN W/O CONTRAST, March 11, 2017, 6:38. MR I BRAIN W/O CONTRAST, April 01, 2015, 15:18. INDICATIONS : Left sided weakness. Cephalgia. Hemorrhage. MEDICAL HISTORY : None. SURGICAL HISTORY : Tonsillectomy. Total knee replacement, left. Right hip replacement. ENCOUNTER: Subsequent ACUITY: 2 day PAIN SCORE: 0/10 LOCATION: head. TECHNIQUE: Multiplanar, multisequence MRI of the brain was performed without contrast. FINDINGS: Susceptibility weighted imaging confirms the presence of a large right temporal hematoma and signific ant thrombus within the right lateral ventricle. In addition there are focal hemorrhages bilaterally in the posterior parietal region. Scattered punctate hemorrhages are also seen in the subcortical whi te matter especially in the right frontal and parietal regions. Patchy areas of restricted diffusion are seen throughout the right temporal hematoma. There no focal areas of restricted diffusion characteristics of a cortical infarct. Advanced cerebral white matter disease is identified. There is confluent periventricular hyperintensi ty extending to the subcortical U fibers. Mild right to left midline shift the septum pellucidum measuring 4 mm persists. Brain stem cerebellum appear unremarkable. CONCLUSION: 1. Large left temporal lobe hematoma 2. Additional bilateral posterior parietal cortical hemorrhages are noted. 3. Intraventricular hemorrhage with thrombus in the right lateral ventricle. 4. No evidence of large vessel acute infarct. 5. Severe white matter disease characteristic of chronic microvascular ischemic changes. 6. Decreasing mass effect with less midline shift. Branden Holloway MD on March 11, 2017 at 11:33 Board Certified Radiologist. This report was verified electronically.
[2017-03-11] MEDS: SODIUM CHLORIDE 23.4% INJ 188 MEQ in SODIUM CHLOR 0.9% 1000 ML INJ 1,000 ML IV SCH (12:00)
--- NOTE | 2017-03-11 13:59 | EKG ---
Date Performed: 03/10/2017 Time Performed: 14:08:27 PTAGE: 76 years EKG: Sinus rhythm WITH SINUS ARRHYTHMIA LEFT VENTRICULAR HYPERTROPHY AND ST-T CHANGE ABNORMAL ECG Compared to prior tr acing no significant change PREVIOUS TRACING : 04/01/2015 12.27 DOCTOR: Althea Masters Interpretating Date/Time 03/11/2017 13:58:51
--- NOTE | 2017-03-11 14:01 | HHI.NSPN ---
Note Status Status: Progress Note Interval History Diagnosis Intracerebral hemorrhage Interval History Laura is a 76-year-old male past medical history for hypertension, hyperlipidemia presents to the emergency department via EMS with new onset left sided weakness. According to EMS, the patient woke up yesterday morning around 8 AM complaining of a right-sided headache. He state in bed yesterday and rested. This morning when he woke up, his noticed that he was able to talk. According to EMS, last time seen normal was 8 AM yesterday morning. The patient is alert. He is oriented to person and place. He is not oriented to year, but does remember that the month is February. He reports sided headache. no seizure activity. No tongue bitting. No incontinence of stool or urine. He denies any fevers or chills. No chest pain or shortness of breath. No abdominal pain. No nausea, vomiting, diarrhea. He does have history of TIA. According to chart, he also has history of intracranial hemorrhage. CT brain showed a right temporal hemorrhage. Neurosurgical consultation was requested 03/11. Alert and a week. Persistent left hemiparesis. Follow up CT was done today. MRI of the brain is pending Labs, Micro, & Vital Signs Results Date Time Temp Pulse Resp B/P (MAP) Pulse Ox O2 Delivery O2 Flow Rate FiO2 03/11/17 08:42 97 21 03/11/17 06:00 80 03/11/17 05:32 86 142/65 03/11/17 04:00 100.1 88 26 134/66 (88) 99 03/11/17 02:00 84 03/11/17 00:00 100.6 78 20 144/69 (94) 97 03/11/17 00:00 77 03/10/17 23:00 84 22 147/69 (95) 95 03/10/17 22:00 90 03/10/17 22:00 90 20 154/69 (97) 99 03/10/17 21:30 98.9 86 22 146/63 (90) 95 03/10/17 21:10 90 16 136/62 (86) 96 Nasal Cannula 2.00 03/10/17 18:39 87 145/70 (95) 03/10/17 17:38 89 20 148/67 (94) 96 Nasal Cannula 2.00 03/10/17 16:44 90 21 149/69 (95) 95 Nasal Cannula 2.00 03/10/17 15:33 87 164/63 03/10/17 15:29 85 22 152/72 (98) 96 03/10/17 15:18 79 22 159/70 (99) 98 03/10/17 15:15 80 159/70 03/10/17 15:09 76 16 168/77 (107) 99 Room Air 03/10/17 15:00 75 174/73 03/10/17 14:03 98.5 78 23 168/77 (107) Constitutional Vital Signs Date Time Temp Pulse Resp B/P (MAP) Pulse Ox O2 Delivery O2 Flow Rate FiO2 03/11/17 08:42 97 21 03/11/17 06:00 80 03/11/17 05:32 86 142/65 03/11/17 04:00 100.1 88 26 134/66 (88) 99 03/11/17 02:00 84 03/11/17 00:00 100.6 78 20 144/69 (94) 97 03/11/17 00:00 77 03/10/17 23:00 84 22 147/69 (95) 95 03/10/17 22:00 90 03/10/17 22:00 90 20 154/69 (97) 99 03/10/17 21:30 98.9 86 22 146/63 (90) 95 03/10/17 21:10 90 16 136/62 (86) 96 Nasal Cannula 2.00 03/10/17 18:39 87 145/70 (95) 03/10/17 17:38 89 20 148/67 (94) 96 Nasal Cannula 2.00 03/10/17 16:44 90 21 149/69 (95) 95 Nasal Cannula 2.00 03/10/17 15:33 87 164/63 03/10/17 15:29 85 22 152/72 (98) 96 03/10/17 15:18 79 22 159/70 (99) 98 03/10/17 15:15 80 159/70 03/10/17 15:09 76 16 168/77 (107) 99 Room Air 03/10/17 15:00 75 174/73 03/10/17 14:03 98.5 78 23 168/77 (107) Physical Exam Mr Chapa is alert, awake and oriented to time, place and person. Speech is fluent. Higher cognitive functions are normal. Cranial nerve examination demonstrates the pupils to be equal, round, and reactive to light. Extra-ocular movements are intact. Facial motor function shows a left supranuclear facial droop Gross hearing is intact, bilaterally. The uvula is midline and elevates symmetrically with the soft palate. Sternocleidomastoid and trapezius muscles have normal and symmetrical strength. Other cranial nerves are intact. Neck is soft and supple. Cervical spine has a full range of motion in anterior flexion, extension, lateral bending, and rotation without pain. There is no tenderness to palpation to the spinous processes or paraspinal muscles. Muscle testing reveals normal bulk and tone overall without rigidity, spasticity , fasciculations, or atrophy. Muscle strength is 5/5 in all muscle groups of right upper extremity with proximal for up to 5 strength in the left upper extremity, and to L2-5 in his hand. In the lower extremities, strength is 5/5 in his right iliopsoas, quadriceps, hamstrings, plantar flexion, dorsiflexion, and extensor hallicus longus with 3 up to 5 on the left. Sensory examination is intact to light touch and sharp/dull discrimination in right the upper and lower extremities, and decreasing on the left. Deep tendon reflexes are 2+ and symmetrical in the biceps, triceps, and brachioradialis, bilaterally, in the upper extremities. In the lower extremities , the patellar and Achilles are 2+, bilaterally. There is a bilateral plantar flexion response. Hoffmanns sign is negative. There is no clonus or other abnormal reflexes noted. Cerebellar examination is intact to [id number] test, rapid rhythmic alternating motion on the right side. There is no dysmetria, dysdiadochokinesia , truncal ataxia,. Unable to test on the left side Medications Current Medications Current Medications Sodium Chloride (NS Flush) 2 ml UNSCH PRN IVF FLUSH AFTER USING IV ACCESS; Start 03/10/17 at 14:15; Stop 03/10/17 at 16:25; Status DC Nicardipine HCl 25 mg/Sodium Chloride 250 ml @ 0 mls/hr TITRATE ONCE IV Last administered on 03/10/17 15:00; Start 03/10/17 at 15:00; Stop 03/10/17 at 15 :01; Status DC Mannitol (Mannitol Inj) 25 gm ONCE ONCE IV Last administered on 03/10/17 15: 28; Start 03/10/17 at 15:00; Stop 03/10/17 at 15:01; Status DC Iohexol (Omnipaque 350 Inj) 75 ml STK-MED ONCE IVCONTRAST ; Start 03/10/17 at 16:14; Stop 03/10/17 at 16:15; Status DC Sodium Chloride 1,000 ml @ 84 mls/hr [id number] IV ; Start 03/10/17 at 16:08; Stop 03/10/17 at 16:38; Status DC Sodium Chloride (NS Flush) 2 ml UNSCH PRN IV FLUSH FLUSH AFTER USING IV ACCESS ; Start 03/10/17 at 16:15 Sodium Chloride (NS Flush) 2 ml BID IV FLUSH Last administered on 03/11/17 11 :20; Start 03/10/17 at 21:00 Acetaminophen (Tylenol) 650 mg Q6H PRN PO PAIN 1-10 AND/OR FEVER >101F; Start 03/10/17 at 16:15 Famotidine (Pepcid Inj) 20 mg Q12HR IV PUSH Last administered on 03/11/17 11: 20; Start 03/10/17 at 21:00 Ondansetron HCl (Zofran Inj) 4 mg Q6H PRN IV PUSH NAUSEA OR VOMITING; Start at 16:15 Albuterol/ Ipratropium (Duoneb Neb) 1 ampule Q4HR NEB PRN INH WHEEZING; Start 03/10/17 at 16:15 Miscellaneous Information 1 [id number] ; Start 03/10/17 at 16:15 Chlorhexidine Gluconate (Chlorhexidine 2% Cloth) 3 pack Taper DAILY@04 TOP ; Start 03/11/17 at 04:00; Stop 03/07/18 at 03:59 Chlorhexidine Gluconate (Chlorhexidine 2% Cloth) 3 pack UNSCH PRN TOP HYGIENIC CARE; Start 03/10/17 at 16:15 Senna/Docusate Sodium (Donna-Colace) 1 tab BID PO ; Start 03/10/17 at 21:00 Magnesium Hydroxide (Milk Of Magnesia Liq) 30 ml Q12H PRN PO Mild constipation ; Start 03/10/17 at 16:15 Sennosides (Senokot) 17.2 mg Q12H PRN PO Moderate constipation; Start at 16:15 Bisacodyl (Dulcolax Supp) 10 mg DAILY PRN RECTAL SEVERE CONSITIPATION; Start 03/10/17 at 16:15 Lactulose (Lactulose Liq) 30 ml DAILY PRN PO SEVERE CONSITIPATION; Start 03/10 at 16:15 Sodium Chloride 188 meq/Sodium Chloride 1,047 ml @ 60 mls/hr [id number] IV Last administered on 03/10/17 19:06; Start 03/10/17 at 17:00 Levetriacetam 100 ml @ 400 mls/hr BOLUS ONCE IV Last administered on 19:06; Start 03/10/17 at 16:45; Stop 03/10/17 at 16:59; Status DC Levetriacetam 500 mg/Sodium Chloride 105 ml @ 420 mls/hr Q12HR IV Last administered on 03/11/17 11:20; Start 03/10/17 at 23:00 Nicardipine HCl 25 mg/Sodium Chloride 250 ml @ 50 mls/hr TITRATE PRN IV Blood pressure management Last administered on 03/11/17 05:32; Start 03/10/17 at 22 :00 Medical Decision Making MDM Remarks Last [address] 03/11/17 0600 Signed Impressions: Service Date/Time: February 06:38 - CONCLUSION: Stable appearance to the right temporal hematoma, subdural, intraventricular, and subarachnoid blood with associated 6 mm midline shift towards the left. Sebastián Alonzo MD Brain MRI 03/11/17 0000 Signed Impressions: Service Date/Time: February 10:47 - CONCLUSION: 1. Large left temporal lobe hematoma 2. Additional bilateral posterior parietal cortical hemorrhages are noted. 3. Intraventricular hemorrhage with thrombus in the right lateral ventricle. 4. No evidence of large vessel acute infarct. 5. Severe white matter disease characteristic of chronic microvascular ischemic changes. 6. Decreasing mass effect with less midline shift. Branden Holloway MD Neck CTA 03/10/17 1534 Signed Impressions: Service Date/Time: Friday, March 10, 2017 15:57 - CONCLUSION: 1. Bilateral calcified carotid plaques. 2. No evidence of significant stenosis involving the common carotid arteries or internal carotid arteries. 3. Focal stenosis at the origin of the right external carotid artery. 4. Patent vertebral arteries without evidence of proximal stenotic lesions. Branden Holloway MD Head CT 03/10/17 1413 Signed Impressions: Service Date/Time: Friday, March 10, 2017 14:38 - CONCLUSION: 1. Large right temporal hemorrhage with mass effect and right to left midline shift of 5 mm. 2. Right-sided subdural hemorrhage and intraventricular hemorrhage. Dr. Pizarro notified of these findings. Jesus Wilkerson MD Chest X-Ray 03/10/17 1413 Signed Impressions: Service Date/Time: Friday, March 10, 2017 15:02 - CONCLUSION: 1. No acute abnormality or significant interval change. Zaid Maria MD Head CTA 03/10/17 0000 Signed Impressions: Service Date/Time: Friday, March 10, 2017 15:57 - CONCLUSION: 1. Large right temporal lobe hematoma. 2. No evidence of ruptured aneurysm or vascular malformation. 3. Significant mass effect on the right middle cerebral artery branches with possible small vessel occlusions in the right temporal lobe. 4. Bilateral scribed disease identified in the left cerebral circulation and vertebral basilar vessels. 5. No other significant abnormality. Branden Holloway MD Plan Plan Remarks Caprini VTE Risk Assessment Caprini VTE Risk Assessment Caprini VTE Risk Assessment: Mod/High Risk (score >= 2) VTE Pharm Contraindication: Hemorrhage Caprini Risk Assessment Model Point Value = 1 Point Value = 2 Point Value = 3 Point Value = 5 Age 41-60 Minor surgery BMI > 25 kg/m2 Swollen legs Varicose veins or History of unexplained or recurrent spontaneous Oral contraceptives or hormone replacement Sepsis (< 1 month) Serious lung disease, including pneumonia (< 1 month) Abnormal pulmonary function Acute myocardial infarction Congestive heart failure (< 1 month) History of inflammatory bowel disease Medical patient at bed rest Age 61-74 Arthroscopic surgery Major open surgery (> 45 min) Laparoscopic surgery (> 45 min) Malignancy Confined to bed (> 72 hours) Immobilizing plaster cast Central venous access Age >= 75 History of VTE Family history of VTE Factor V Leiden Prothrombin [id number] Lupus anticoagulant Anticardiolipin antibodies Elevated serum homocysteine Heparin-induced thrombocytopenia Other congenital or acquired thrombophilia Stroke (< 1 month) Elective arthroplasty Hip, pelvis, or leg fracture Acute spinal cord injury (< 1 month) Prophylaxis Regimen Total Risk Factor Score Risk Level Prophylaxis Regimen 0-1 Low Early ambulation 2 Moderate Order ONE of the following: *Sequential Compression Device (SCD) *Heparin 5000 units SQ BID 3-4 Higher Order ONE of the following medications: *Heparin 5000 units SQ TID *Enoxaparin/Lovenox 40 mg SQ daily (WT < 150 kg, CrCl > 30 mL/min) *Enoxaparin/Lovenox 30 mg SQ daily (WT < 150 kg, CrCl > 10-29 mL/min) *Enoxaparin/Lovenox 30 mg SQ BID (WT < 150 kg, CrCl > 30 mL/min) AND/OR *Sequential Compression Device (SCD) 5 or more Highest Order ONE of the following medications: *Heparin 5000 units SQ TID (Preferred with Epidurals) *Enoxaparin/Lovenox 40 mg SQ daily (WT < 150 kg, CrCl > 30 mL/min) *Enoxaparin/Lovenox 30 mg SQ daily (WT < 150 kg, CrCl > 10-29 mL/min) *Enoxaparin/Lovenox 30 mg SQ BID (WT < 150 kg, CrCl > 30 mL/min) AND *Sequential Compression Device (SCD) Attending Statement Right temporal lobe hematoma. Continue neuro checks in a serial fashion. Recommend stat CT drain..I reviewed his follow up Ct of the brain. MRI brain is pending [facility] for sz prophylaxis. Uncontrolled arterial hypertension. We will start Cardene drip with a goal to maintain the systolic blood pressure less than 160 Hypokalemia. Potasium replacement done. Follow up BMP. Electrolytes replacement per ICU protocol Endocrine. Continue to Monitor serial Acu checks and SSI as needed in detail Nutrition. Oral diet Renal. Continue to monitor closely urine output, BUN and creatinine ID continue to monitor for signs of infection Continue Protonix for stress ulcer prophylaxis Continue Sotero hose and SCD's for DVT prophylaxis, - No pharmacological DVT prophylaxis due to traumatic ICH Further recommendations will be provided depending on the patient's clinical evaluation and follow up studies Travis Hernández MD Mar 11, 2017 14:01
--- NOTE | 2017-03-11 17:01 | HHI.CCPN ---
Subjective Remarks/Hospital Course Herniated year-old male with a medical history significant for hypertension, hyperlipidemia, prior history of right temporal intracranial hemorrhage in January 2011 who developed right sided headache around 8 AM one day prior to his arrival on 03/09/17 in the morning. He pretty much stayed in bed all day. noticed that he was dragging his left leg while walking to the bathroom yesterday evening and also appeared to have some weakness in the left upper extremity. He was responding appropriately at the time however was slightly slow and drowsy. This morning on waking up patient's noticed that he was worse in terms of his neurologic status in more drowsy with persistent headache and decreased movement in left upper extremity hence EMS was called and patient was brought to the ER. Head CT done in ER revealed right temporal intraparenchymal hemorrhage. Dr. Hernández from neurosurgery was contacted and requested admission to critical care medicine service to the ICU with neurosurgery consult. I evaluated the patient in the ER after being notified of the consult with Dr. Hernández being at the bedside at the time as well. History was obtained by reviewing records and discussion with patient's and Dr. Hernández at the bedside. Patient was awake and alert and following commands with what appeared to be sensory inattention on the left side though he was moving all 4 extremities. 03/11: Remains alert, swallows well. Airway patent. Objective Vital Signs Date Time Temp Pulse Resp B/P (MAP) Pulse Ox O2 Delivery O2 Flow Rate FiO2 03/11/17 08:42 97 21 03/11/17 06:00 80 03/11/17 05:32 142/65 03/11/17 04:00 100.1 26 03/10/17 21:10 Nasal Cannula 2.00 Intake and Output 03/11/17 03/11/17 03/12/17 08:00 16:00 00:00 Intake Total 731 ml Output Total 1050 ml Balance -319 ml Result Diagram: 03/11/17 0410 03/11/17 1152 Objective Remarks ROS Review of Systems Except as stated in HPI: all other systems reviewed are Neg Narrative GENERAL: Well-nourished, well-developed male patient, afebrile. SKIN: Focused skin assessment warm/dry. HEAD: Normocephalic. Atraumatic. EYES: No scleral icterus. No injection or drainage. PERRLA. NECK: Supple, trachea midline. No JVD or lymphadenopathy. CARDIOVASCULAR: Regular rate and rhythm without murmurs, gallops, or rubs. RESPIRATORY: Breath sounds equal bilaterally. No accessory muscle use. Lungs sounds are clear to auscultation. Comfortable pattern. GASTROINTESTINAL: Abdomen soft, non-tender, nondistended. BS active. MUSCULOSKELETAL: No cyanosis, or edema. Well perfused. NEUROLOGICAL: Awake and alert. Normal speech. Patient is oriented to person and place. Pupils 2 mm bilaterally reacting actively to light. He does ignore the left side. Bilateral lower extremity strength is 5/5. [id number] is normal bilaterally. Right upper extremity strength 5/5 with mild difficulty with finger to nose. Swallow intact, protects airway. A/P Assessment and Plan 76-year-old male with: Right temporal intracerebral hemorrhage Cerebral edema with right to left midline shift Uncontrolled hypertension Plan: Neuro: Admit to ICU, follow neuro checks per protocol. Neurosurgery consult requested and patient has already been evaluated by Dr. Hernández. Received mannitol in ER. Continue 2% saline. Will obtain PICC line in case patient needs to be started on 3% saline for cerebral edema. Repeat head CT in a.m. to follow-up on ICH and cerebral edema. Follow serial sodium and serum osmolarity. Cardiovascular: Continue nicardipine gtt. to keep SBP less than 160 mmHg. Add oral BP meds. Pulmonary: Supplemental O2 as needed. Currently protecting airway. A cerebral edema worsens with worsening neurologic status, may require endotracheal intubation for airway protection and hyperventilation. GI/liver: Diet OK. Renal/: Strict intake output, monitor and replete electrolytes, follow BUN creatinine. Starting 2% saline at 60 cc per hour. Follow serial sodium and osmolarity. ID: Leukocytosis noted most likely reactive secondary to ICH. Hold off on any antibiotics at this time. Endocrine: SSI for glycemic control if needed. Heme: Follow CBC Prophylaxis: Pepcid IV, SCDs. Hold subcutaneous heparin until okay with neurosurgery. Discussed with Dr. Hernández at bedside, discussed with patient's family at bedside in detail regarding current clinical status and plan of care and they voiced understanding. I also explained possible need for endotracheal intubation if neurologic status worsens. Overall impression: Stable respiratory function s/p hemorrhagic stroke. Jesus Wylie MD Mar 11, 2017 17:01
[2017-03-12] VITALS (12 sets, daily range): BP systolic 130–152; BP diastolic 60–65; PULSE 82–96; RESP 20–21; TEMP 98–99.2; O2SAT 92–97
[2017-03-12] MEDS: niCARdipine INJ 25 MG in SODIUM CHLOR 0.9% 250 ML INJ 240 ML IV PRN ×4 (00:59→18:52)
[2017-03-12] MEDS: CHLORHEXIDINE GLUCONATE 2 % 1 PACK (2 CLOTHS) TOP SCH (04:00)
[2017-03-12 04:11] LABS: BLOOD GAS BASE EXCESS -0.9 mmol/L (-2-2); BLOOD GAS CARBOXYHEMOGLOBIN 1.3 % (0-4); BLOOD GAS HCO3 22 mmol/L (22-26); BLOOD GAS METHEMOGLOBIN 0.9 % (0-2); BLOOD GAS O2 HGB SATURATION 92 % (90-100); BLOOD GAS OXYGEN CONTENT 15.3 Vol % (12.0-20.0); BLOOD GAS PCO2 29 mmHg (38-42); BLOOD GAS PO2 64 mmHg (61-120); BLOOD GAS TOTAL HGB 11.9 G/DL (12.0-16.0); TEMP CORR TO 98.6
[2017-03-12 04:12] LABS: CRITICAL VALUE NO; DRAW SITE RT BRACHIAL; FIO2 21 %; NUMBER OF ARTERIAL PUNCTURES 1; STAT NO; ULNAR PULSE PRESENT
[2017-03-12] MEDS: SODIUM CHLORIDE 23.4% INJ 188 MEQ in SODIUM CHLOR 0.9% 1000 ML INJ 1,000 ML IV SCH ×2 (06:18→23:27)
[2017-03-12] MEDS: DOCUSATE SODIUM 50 MG/SENNA 8.6 MG TAB PO SCH ×2 (09:00→22:49)
[2017-03-12] MEDS: levETIRAcetam INJ 500 MG in SODIUM CHLORIDE 0.9% INJ 100 ML IV SCH ×2 (09:41→22:49)
[2017-03-12] MEDS: FAMOTIDINE 20 MG/2 ML VIAL IV PUSH SCH ×2 (09:44→22:49)
[2017-03-12] MEDS: SODIUM CHLORIDE 0.9% FLUSH 10 ML FLUSH IV FLUSH SCH ×2 (09:44→22:49)
--- NOTE | 2017-03-12 16:54 | HHI.CCPN ---
Subjective Remarks/Hospital Course Herniated year-old male with a medical history significant for hypertension, hyperlipidemia, prior history of right temporal intracranial hemorrhage in January 2011 who developed right sided headache around 8 AM one day prior to his arrival on 03/09/17 in the morning. He pretty much stayed in bed all day. noticed that he was dragging his left leg while walking to the bathroom yesterday evening and also appeared to have some weakness in the left upper extremity. He was responding appropriately at the time however was slightly slow and drowsy. This morning on waking up patient's noticed that he was worse in terms of his neurologic status in more drowsy with persistent headache and decreased movement in left upper extremity hence EMS was called and patient was brought to the ER. Head CT done in ER revealed right temporal intraparenchymal hemorrhage. Dr. Hernández from neurosurgery was contacted and requested admission to critical care medicine service to the ICU with neurosurgery consult. I evaluated the patient in the ER after being notified of the consult with Dr. Hernández being at the bedside at the time as well. History was obtained by reviewing records and discussion with patient's and Dr. Hernández at the bedside. Patient was awake and alert and following commands with what appeared to be sensory inattention on the left side though he was moving all 4 extremities. 03/11: Remains alert, swallows well. Airway patent. 03/12: Drowsy, easily arousable, left-sided weakness present as before. Neurologic status fluctuates. Objective Vital Signs Date Time Temp Pulse Resp B/P (MAP) Pulse Ox O2 Delivery O2 Flow Rate FiO2 03/12/17 12:00 94 03/12/17 12:00 98.3 21 139/60 (86) 94 03/12/17 07:00 Room Air 2.00 21 Intake and Output 03/12/17 03/12/17 03/13/17 08:00 16:00 00:00 Intake Total 250 ml Output Total 800 ml Balance -550 ml Result Diagram: 03/11/17 0410 03/12/17 1210 Other Results Laboratory Tests Test 03/12/17 04:00 Blood Gas Puncture Site RT BRACHIAL Blood Gas Patient Temperature 98.6 Blood Gas HCO3 22 mmol/L (22-26) Blood Gas Base Excess -0.9 mmol/L (-2-2) Blood Gas Oxygen Saturation 92 % (90-100) Arterial Blood pH 7.49 (7.380-7.420) Arterial Blood Partial Pressure CO2 29 mmHg (38-42) Arterial Blood Partial Pressure O2 64 mmHg (61-120) Arterial Blood Oxygen Content 15.3 Vol % (12.0-20.0) Arterial Blood Carboxyhemoglobin 1.3 % (0-4) Arterial Blood Methemoglobin 0.9 % (0-2) Blood Gas Hemoglobin 11.9 G/DL (12.0-16.0) Blood Gas Inspired Oxygen 21 % Objective Remarks Narrative GENERAL: Well-nourished, well-developed male patient, afebrile. SKIN: Focused skin assessment warm/dry. HEAD: Normocephalic. Atraumatic. EYES: No scleral icterus. No injection or drainage. PERRLA. NECK: Supple, trachea midline. No JVD or lymphadenopathy. CARDIOVASCULAR: Regular rate and rhythm without murmurs, gallops, or rubs. RESPIRATORY: Breath sounds equal bilaterally. No accessory muscle use. Lungs sounds are clear to auscultation. Comfortable pattern. GASTROINTESTINAL: Abdomen soft, non-tender, nondistended. BS active. MUSCULOSKELETAL: No cyanosis, or edema. Well perfused. NEUROLOGICAL: Drowsy, arousable, not verbalizing today,. Patient is oriented to person and place. Pupils 2 mm bilaterally reacting actively to light. He does ignore the left side with left upper ex many weakness. Bilateral lower extremity strength is 5/5. A/P Assessment and Plan 76-year-old male with: Right temporal intracerebral hemorrhage Cerebral edema with right to left midline shift Uncontrolled hypertension Plan: Neuro: Follow neuro checks per protocol. Neurosurgery consult requested and patient has already been evaluated by Dr. Hernández. Received mannitol in ER. Continue 2% saline. Repeat head CT per neurosurgery to follow-up on ICH and cerebral edema. Follow serial sodium and serum osmolarity. Cardiovascular: Nicardipine gtt. to keep SBP less than 160 mmHg. Add oral BP meds. Pulmonary: Supplemental O2 as needed. Currently protecting airway. If cerebral edema worsens with worsening neurologic status, may require endotracheal intubation for airway protection and hyperventilation. GI/liver: Diet per speech/ swallow therapist. Passed swallow eval of this morning Renal/: Strict intake output, monitor and replete electrolytes, follow BUN creatinine. 2% saline at 60 cc per hour. Follow serial sodium and osmolarity. ID: Leukocytosis noted most likely reactive secondary to ICH. Hold off on any antibiotics at this time. Endocrine: SSI for glycemic control if needed. Heme: Follow CBC Prophylaxis: Pepcid IV, SCDs. Hold subcutaneous heparin until okay with neurosurgery. Ddiscussed with patient's family at bedside in detail regarding current clinical status and plan of care and they voiced understanding. I also explained possible need for endotracheal intubation if neurologic status worsens. Further recommendations per neurosurgery. Discussed current clinical status with patient's family at bedside and updated them regarding current clinical status and plan of care and they voiced understanding and were agreeable. Overall impression: Stable respiratory function s/p hemorrhagic stroke. Familia Washington MD Mar 12, 2017 16:54
--- NOTE | 2017-03-12 16:54 | HHI.NSPN ---
Note Status Status: Progress Note Interval History Diagnosis Intracerebral hemorrhage Interval History Lauar is a 76-year-old male past medical history for hypertension, hyperlipidemia presents to the emergency department via EMS with new onset left sided weakness. According to EMS, the patient woke up yesterday morning around 8 AM complaining of a right-sided headache. He state in bed yesterday and rested. This morning when he woke up, his noticed that he was able to talk. According to EMS, last time seen normal was 8 AM yesterday morning. The patient is alert. He is oriented to person and place. He is not oriented to year, but does remember that the month is February. He reports sided headache. no seizure activity. No tongue bitting. No incontinence of stool or urine. He denies any fevers or chills. No chest pain or shortness of breath. No abdominal pain. No nausea, vomiting, diarrhea. He does have history of TIA. According to chart, he also has history of intracranial hemorrhage. CT brain showed a right temporal hemorrhage. Neurosurgical consultation was requested 03/11. Alert and a week. Persistent left hemiparesis. Follow up CT was done today. MRI of the brain is pending 03/12. Alert, awake, following commands. persistent left hemiparesis Labs, Micro, & Vital Signs Results Date Time Temp Pulse Resp B/P (MAP) Pulse Ox O2 Delivery O2 Flow Rate FiO2 03/12/17 12:00 94 03/12/17 12:00 98.3 94 21 139/60 (86) 94 03/12/17 10:00 85 03/12/17 09:44 85 144/63 03/12/17 08:00 98.8 93 21 135/64 (87) 92 03/12/17 08:00 93 03/12/17 07:00 94 Room Air 2.00 21 03/12/17 06:00 91 03/12/17 05:00 82 140/61 03/12/17 04:00 98.0 90 21 130/63 (85) 96 03/12/17 04:00 83 03/12/17 02:00 82 03/12/17 00:59 91 140/66 03/12/17 00:00 84 03/12/17 00:00 99.1 84 20 134/60 (84) 97 03/11/17 22:00 95 03/11/17 20:31 94 147/65 03/11/17 20:00 100.4 94 24 131/57 (81) 96 03/11/17 20:00 94 03/11/17 19:00 99 Room Air 03/11/17 18:00 94 Constitutional Vital Signs Date Time Temp Pulse Resp B/P (MAP) Pulse Ox O2 Delivery O2 Flow Rate FiO2 03/12/17 12:00 94 03/12/17 12:00 98.3 94 21 139/60 (86) 94 03/12/17 10:00 85 03/12/17 09:44 85 144/63 03/12/17 08:00 98.8 93 21 135/64 (87) 92 03/12/17 08:00 93 03/12/17 07:00 94 Room Air 2.00 21 03/12/17 06:00 91 03/12/17 05:00 82 140/61 03/12/17 04:00 98.0 90 21 130/63 (85) 96 03/12/17 04:00 83 03/12/17 02:00 82 03/12/17 00:59 91 140/66 03/12/17 00:00 84 03/12/17 00:00 99.1 84 20 134/60 (84) 97 03/11/17 22:00 95 03/11/17 20:31 94 147/65 03/11/17 20:00 100.4 94 24 131/57 (81) 96 03/11/17 20:00 94 03/11/17 19:00 99 Room Air 03/11/17 18:00 94 Physical Exam Mr Chapa is alert, awake and oriented to time, place and person. Speech is fluent. Higher cognitive functions are normal. Cranial nerve examination demonstrates the pupils to be equal, round, and reactive to light. Extra-ocular movements are intact. Facial motor function shows a left supranuclear facial droop Gross hearing is intact, bilaterally. The uvula is midline and elevates symmetrically with the soft palate. Sternocleidomastoid and trapezius muscles have normal and symmetrical strength. Other cranial nerves are intact. Neck is soft and supple. Cervical spine has a full range of motion in anterior flexion, extension, lateral bending, and rotation without pain. There is no tenderness to palpation to the spinous processes or paraspinal muscles. Muscle testing reveals normal bulk and tone overall without rigidity, spasticity , fasciculations, or atrophy. Muscle strength is 5/5 in all muscle groups of right upper extremity with proximal for up to 5 strength in the left upper extremity, and to L2-5 in his hand. In the lower extremities, strength is 5/5 in his right iliopsoas, quadriceps, hamstrings, plantar flexion, dorsiflexion, and extensor hallicus longus with 3 up to 5 on the left. Sensory examination is intact to light touch and sharp/dull discrimination in right the upper and lower extremities, and decreasing on the left. Deep tendon reflexes are 2+ and symmetrical in the biceps, triceps, and brachioradialis, bilaterally, in the upper extremities. In the lower extremities , the patellar and Achilles are 2+, bilaterally. There is a bilateral plantar flexion response. Hoffmanns sign is negative. There is no clonus or other abnormal reflexes noted. Cerebellar examination is intact to [id number] test, rapid rhythmic alternating motion on the right side. There is no dysmetria, dysdiadochokinesia , truncal ataxia,. Unable to test on the left side Medications Current Medications Current Medications Sodium Chloride (NS Flush) 2 ml UNSCH PRN IVF FLUSH AFTER USING IV ACCESS; Start 03/10/17 at 14:15; Stop 03/10/17 at 16:25; Status DC Nicardipine HCl 25 mg/Sodium Chloride 250 ml @ 0 mls/hr TITRATE ONCE IV Last administered on 03/10/17 15:00; Start 03/10/17 at 15:00; Stop 03/10/17 at 15 :01; Status DC Mannitol (Mannitol Inj) 25 gm ONCE ONCE IV Last administered on 03/10/17 15: 28; Start 03/10/17 at 15:00; Stop 03/10/17 at 15:01; Status DC Iohexol (Omnipaque 350 Inj) 75 ml K-MED ONCE IVCONTRAST ; Start 03/10/17 at 16:14; Stop 03/10/17 at 16:15; Status DC Sodium Chloride 1,000 ml @ 84 mls/hr [id number] IV ; Start 03/10/17 at 16:08; Stop 03/10/17 at 16:38; Status DC Sodium Chloride (NS Flush) 2 ml UNSCH PRN IV FLUSH FLUSH AFTER USING IV ACCESS ; Start 03/10/17 at 16:15 Sodium Chloride (NS Flush) 2 ml BID IV FLUSH Last administered on 03/12/17 09 :44; Start 03/10/17 at 21:00 Acetaminophen (Tylenol) 650 mg Q6H PRN PO PAIN 1-10 AND/OR FEVER >101F; Start 03/10/17 at 16:15 Famotidine (Pepcid Inj) 20 mg Q12HR IV PUSH Last administered on 03/12/17 09: 44; Start 03/10/17 at 21:00 Ondansetron HCl (Zofran Inj) 4 mg Q6H PRN IV PUSH NAUSEA OR VOMITING; Start at 16:15 Albuterol/ Ipratropium (Duoneb Neb) 1 ampule Q4HR NEB PRN INH WHEEZING; Start 03/10/17 at 16:15 Miscellaneous Information 1 [id number] XX ; Start 03/10/17 at 16:15 Chlorhexidine Gluconate (Chlorhexidine 2% Cloth) 3 pack Taper DAILY@04 TOP ; Start 03/11/17 at 04:00; Stop 03/07/18 at 03:59 Chlorhexidine Gluconate (Chlorhexidine 2% Cloth) 3 pack UNSCH PRN TOP HYGIENIC CARE; Start 03/10/17 at 16:15 Senna/Docusate Sodium (Donna-Colace) 1 tab BID PO ; Start 03/10/17 at 21:00 Magnesium Hydroxide (Milk Of Magnesia Liq) 30 ml Q12H PRN PO Mild constipation ; Start 03/10/17 at 16:15 Sennosides (Senokot) 17.2 mg Q12H PRN PO Moderate constipation; Start at 16:15 Bisacodyl (Dulcolax Supp) 10 mg DAILY PRN RECTAL SEVERE CONSITIPATION; Start 03/10/17 at 16:15 Lactulose (Lactulose Liq) 30 ml DAILY PRN PO SEVERE CONSITIPATION; Start 03/10 at 16:15 Sodium Chloride 188 meq/Sodium Chloride 1,047 ml @ 60 mls/hr [id number] IV Last administered on 03/12/17 06:18; Start 03/10/17 at 17:00 Levetriacetam 100 ml @ 400 mls/hr BOLUS ONCE IV Last administered on 19:06; Start 03/10/17 at 16:45; Stop 03/10/17 at 16:59; Status DC Levetriacetam 500 mg/Sodium Chloride 105 ml @ 420 mls/hr Q12HR IV Last administered on 03/12/17 09:41; Start 03/10/17 at 23:00 Nicardipine HCl 25 mg/Sodium Chloride 250 ml @ 50 mls/hr TITRATE PRN IV Blood pressure management Last administered on 03/12/17 09:44; Start 03/10/17 at 22 :00 Pneumococcal Polyvalent Vaccine (Pneumovax-23 Inj) 25 mcg ONCE ONCE IM ; Start 03/13/17 at 10:00; Stop 03/13/17 at 10:01; Status Cancel Medical Decision Making MDM Remarks Last [address] 03/11/17 0600 Signed Impressions: Service Date/Time: February 06:38 - CONCLUSION: Stable appearance to the right temporal hematoma, subdural, intraventricular, and subarachnoid blood with associated 6 mm midline shift towards the left. Sebastián Alonzo MD Brain MRI 03/11/17 0000 Signed Impressions: Service Date/Time: February 10:47 - CONCLUSION: 1. Large left temporal lobe hematoma 2. Additional bilateral posterior parietal cortical hemorrhages are noted. 3. Intraventricular hemorrhage with thrombus in the right lateral ventricle. 4. No evidence of large vessel acute infarct. 5. Severe white matter disease characteristic of chronic microvascular ischemic changes. 6. Decreasing mass effect with less midline shift. Branden Holloway MD Last [address] 03/11/17 0600 Signed Impressions: Service Date/Time: February 06:38 - CONCLUSION: Stable appearance to the right temporal hematoma, subdural, intraventricular, and subarachnoid blood with associated 6 mm midline shift towards the left. Sebastián Alonzo MD Brain MRI 03/11/17 0000 Signed Impressions: Service Date/Time: February 10:47 - CONCLUSION: 1. Large left temporal lobe hematoma 2. Additional bilateral posterior parietal cortical hemorrhages are noted. 3. Intraventricular hemorrhage with thrombus in the right lateral ventricle. 4. No evidence of large vessel acute infarct. 5. Severe white matter disease characteristic of chronic microvascular ischemic changes. 6. Decreasing mass effect with less midline shift. Branden Holloway MD Neck CTA 03/10/17 1534 Signed Impressions: Service Date/Time: Friday, March 10, 2017 15:57 - CONCLUSION: 1. Bilateral calcified carotid plaques. 2. No evidence of significant stenosis involving the common carotid arteries or internal carotid arteries. 3. Focal stenosis at the origin of the right external carotid artery. 4. Patent vertebral arteries without evidence of proximal stenotic lesions. Branden Holloway MD Head CT 03/10/17 1413 Signed Impressions: Service Date/Time: Friday, March 10, 2017 14:38 - CONCLUSION: 1. Large right temporal hemorrhage with mass effect and right to left midline shift of 5 mm. 2. Right-sided subdural hemorrhage and intraventricular hemorrhage. Dr. Pizarro notified of these findings. Jesus Wilkerson MD Chest X-Ray 03/10/17 1413 Signed Impressions: Service Date/Time: Friday, March 10, 2017 15:02 - CONCLUSION: 1. No acute abnormality or significant interval change. Zaid Maria MD Head CTA 03/10/17 0000 Signed Impressions: Service Date/Time: Friday, March 10, 2017 15:57 - CONCLUSION: 1. Large right temporal lobe hematoma. 2. No evidence of ruptured aneurysm or vascular malformation. 3. Significant mass effect on the right middle cerebral artery branches with possible small vessel occlusions in the right temporal lobe. 4. Bilateral scribed disease identified in the left cerebral circulation and vertebral basilar vessels. 5. No other significant abnormality. Branden Holloway MD Plan Plan Remarks Caprini VTE Risk Assessment Caprini VTE Risk Assessment Caprini VTE Risk Assessment: Mod/High Risk (score >= 2) VTE Pharm Contraindication: Hemorrhage Caprini Risk Assessment Model Point Value = 1 Point Value = 2 Point Value = 3 Point Value = 5 Age 41-60 Minor surgery BMI > 25 kg/m2 Swollen legs Varicose veins or History of unexplained or recurrent spontaneous Oral contraceptives or hormone replacement Sepsis (< 1 month) Serious lung disease, including pneumonia (< 1 month) Abnormal pulmonary function Acute myocardial infarction Congestive heart failure (< 1 month) History of inflammatory bowel disease Medical patient at bed rest Age 61-74 Arthroscopic surgery Major open surgery (> 45 min) Laparoscopic surgery (> 45 min) Malignancy Confined to bed (> 72 hours) Immobilizing plaster cast Central venous access Age >= 75 History of VTE Family history of VTE Factor V Leiden Prothrombin [id number] Lupus anticoagulant Anticardiolipin antibodies Elevated serum homocysteine Heparin-induced thrombocytopenia Other congenital or acquired thrombophilia Stroke (< 1 month) Elective arthroplasty Hip, pelvis, or leg fracture Acute spinal cord injury (< 1 month) Prophylaxis Regimen Total Risk Factor Score Risk Level Prophylaxis Regimen 0-1 Low Early ambulation 2 Moderate Order ONE of the following: *Sequential Compression Device (SCD) *Heparin 5000 units SQ BID 3-4 Higher Order ONE of the following medications: *Heparin 5000 units SQ TID *Enoxaparin/Lovenox 40 mg SQ daily (WT < 150 kg, CrCl > 30 mL/min) *Enoxaparin/Lovenox 30 mg SQ daily (WT < 150 kg, CrCl > 10-29 mL/min) *Enoxaparin/Lovenox 30 mg SQ BID (WT < 150 kg, CrCl > 30 mL/min) AND/OR *Sequential Compression Device (SCD) 5 or more Highest Order ONE of the following medications: *Heparin 5000 units SQ TID (Preferred with Epidurals) *Enoxaparin/Lovenox 40 mg SQ daily (WT < 150 kg, CrCl > 30 mL/min) *Enoxaparin/Lovenox 30 mg SQ daily (WT < 150 kg, CrCl > 10-29 mL/min) *Enoxaparin/Lovenox 30 mg SQ BID (WT < 150 kg, CrCl > 30 mL/min) AND *Sequential Compression Device (SCD) Attending Statement Right temporal lobe hematoma. Continue neuro checks.I reviewed his follow up MRI brain, consistent with a hemorrhagic stroke. Continue keppra for sz prophylaxis. Uncontrolled arterial hypertension. Wean Cardene drip, with a goal to maintain the systolic blood pressure less than 160 Hypokalemia. Potasium replaced. Follow up BMP. Electrolytes replacement per ICU protocol Endocrine. Continue to Monitor serial Acu checks and SSI as needed in detail Nutrition. Oral diet Renal. Continue to monitor closely urine output, BUN and creatinine ID continue to monitor for signs of infection Continue Protonix for stress ulcer prophylaxis Continue Sotero carson and SCD's for DVT prophylaxis, - No pharmacological DVT prophylaxis due to traumatic ICH Travis Hernández MD Mar 12, 2017 16:54
[2017-03-13] VITALS (14 sets, daily range): BP systolic 141–154; BP diastolic 62–77; PULSE 76–99; RESP 19–25; TEMP 98–100.8; O2SAT 93–97
[2017-03-13] MEDS: niCARdipine INJ 25 MG in SODIUM CHLOR 0.9% 250 ML INJ 240 ML IV PRN ×3 (00:21→08:01)
[2017-03-13] MEDS: CHLORHEXIDINE GLUCONATE 2 % 1 PACK (2 CLOTHS) TOP SCH (04:00)
--- NOTE | 2017-03-13 05:52 | HHI.CCPN ---
Subjective Remarks/Hospital Course 76 year-old male with a medical history significant for hypertension, hyperlipidemia, prior history of right temporal intracranial hemorrhage in January 2011 who developed right sided headache around 8 AM one day prior to his arrival on 03/09/17 in the morning. He pretty much stayed in bed all day. noticed that he was dragging his left leg while walking to the bathroom yesterday evening and also appeared to have some weakness in the left upper extremity. He was responding appropriately at the time however was slightly slow and drowsy. This morning on waking up patient's noticed that he was worse in terms of his neurologic status in more drowsy with persistent headache and decreased movement in left upper extremity hence EMS was called and patient was brought to the ER. Head CT done in ER revealed right temporal intraparenchymal hemorrhage. Dr. Hernández from neurosurgery was contacted and requested admission to critical care medicine service to the ICU with neurosurgery consult. I evaluated the patient in the ER after being notified of the consult with Dr. Hernández being at the bedside at the time as well. History was obtained by reviewing records and discussion with patient's and Dr. Hernández at the bedside. Patient was awake and alert and following commands with what appeared to be sensory inattention on the left side though he was moving all 4 extremities. 03/11: Remains alert, swallows well. Airway patent. 03/12: Drowsy, easily arousable, left-sided weakness present as before. Neurologic status fluctuates. Subjective: 03/13 Was agitated overnight, attempting to pull Martines out and attempted to get out of bed twice so in 4 point soft restraints for safety. Speech recommended pureed diet but he had not been eating much so were considering Dobhoff however this morning ate 50% of breakfast. Has L hemiparesis but follows commands. Remains on cardene drip to meet BP targets. Objective Vital Signs Date Time Temp Pulse Resp B/P (MAP) Pulse Ox O2 Delivery O2 Flow Rate FiO2 03/13/17 05:16 94 146/67 03/13/17 04:00 98.0 20 94 03/12/17 19:00 Room Air 03/12/17 07:00 2.00 21 Intake and Output 03/13/17 03/13/17 03/14/17 08:00 16:00 00:00 Intake Total 500 ml Balance 500 ml Result Diagram: 03/11/17 0410 03/12/17 2341 Objective Remarks Drips: Cardene 6 mg per hour 2% NaCl at 60 mL per hour Blood pressure 141/63 pulse 86 sinus rhythm sats 93% on room air GENERAL: Well-nourished, well-developed male patient who is sitting up in ISC bed in 4 point soft restraints. SKIN: Skin warm, dry. HEAD: Normocephalic. Atraumatic. EYES: No scleral icterus. No injection or drainage. PERRLA. NECK: Supple, trachea midline. No JVD or lymphadenopathy. CARDIOVASCULAR: Regular rate and rhythm with 2/6 systolic murmur RSB. RESPIRATORY: Breathing comfortably and equal bilateral. Lungs sounds are clear to auscultation. On room air GASTROINTESTINAL: Abdomen soft, non-tender, nondistended. BS active. MUSCULOSKELETAL: No cyanosis, or edema. Well perfused. Well-healed scar overlying left knee. NEUROLOGICAL: Drowsy, arousable. Opens eyes to command after repeatedly asking. Pupils 2 mm bilaterally reacting actively to light. L sided neglect. RLE 5/5 RUE 5/5 LLE 5/5 3/ LUE A/P Assessment and Plan 76-year-old male with: Right temporal intracerebral hemorrhage Cerebral edema with right to left midline shift Uncontrolled hypertension Plan: Neuro: Follow neuro checks per protocol. Neurosurgery following, Dr. Hernández. Received mannitol in ER. Continue 2% saline, decrease to 20 ml/hr. Follow serial sodium and serum osmolarity. Out of bed with assist, PT consult. Followup CT brain 03/11 - stable Right temporal lobe hemorrhage. No e/o aneurysm of vascular malformation. Cardiovascular: Nicardipine gtt. to keep SBP less than 160 mmHg, now weaned to 3 mg/hr. . Add Norvasc 5 mg po daily. Pulmonary: Supplemental O2 as needed. Currently protecting airway. GI/liver: Pureed diet per speech/ swallow therapist. Intake is improving so will hold off on Dobhoff for now. Renal/: Monitor intake output, monitor and replete electrolytes, follow BUN creatinine. 2% saline as per avoivce. . Follow serial sodium and osmolarity. Remove Martines ID: Leukocytosis and temp max 100.0 may be secondary to ICH. Check CXR and blood cultures. Ua was negative 03/10. Endocrine: SSI for glycemic control if needed. Heme: Follow CBC Prophylaxis: Pepcid IV, SCDs. Initiate heparin 5000 subcut q12 for DVT prophylaxis per discussion with Dr. Rawls. Discussed with patient's family at bedside in detail regarding current clinical status and plan of care and they voiced understanding. Filled out paperwork regarding cruise trip insurance at their request. Discussed with Dr. Rawls, Neurosurgery. Level 3 followup. Lyndsey Hubbard MD Mar 13, 2017 05:52
[2017-03-13] MEDS: levETIRAcetam INJ 500 MG in SODIUM CHLORIDE 0.9% INJ 100 ML IV SCH ×2 (08:00→21:06)
[2017-03-13] MEDS: SODIUM CHLORIDE 0.9% FLUSH 10 ML FLUSH IV FLUSH SCH ×2 (08:00→21:00)
[2017-03-13] MEDS: FAMOTIDINE 20 MG/2 ML VIAL IV PUSH SCH ×2 (08:00→21:05)
[2017-03-13] MEDS: DOCUSATE SODIUM 50 MG/SENNA 8.6 MG TAB PO SCH ×2 (08:01→21:05)
[2017-03-13] MEDS ORDERED: PNEUMOCOCCAL POLYVALENT INJ 25 MCG/0.5 ML SYR IM ONE (10:00)
[2017-03-13] MEDS ORDERED: niCARdipine INJ 25 MG in SODIUM CHLOR 0.9% 250 ML INJ 240 ML IV PRN (11:30)
[2017-03-13] MEDS: amLODIPine BESYLATE 5 MG TAB PO SCH (13:04)
--- NOTE | 2017-03-13 13:46 | RADRPT ---
EXAM DATE/TIME: 03/13/2017 13:18 [facility] COMPARISON: CHEST SINGLE AP, March 10, 2017, 15:02. INDICATIONS : Short of breath MEDICAL HISTORY : Hypertension. CVA. SURGICAL HISTORY : None. ENCOUNTER: Subsequent ACUITY: 4 - 6 days PAIN SCORE: Non-responsive. LOCATION: Bilateral chest FINDINGS: A single view of the chest demonstrates the lungs to be symmetrically aerated without evidence of mas s, infiltrate or effusion. The cardiomediastinal contours are unremarkable. Osseous structures are intact. CONCLUSION: 1. No acute animality or significant interval change. Zaid Maria MD on March 13, 2017 at 13:44 Board Certified Radiologist. This report was verified electronically.
--- NOTE | 2017-03-13 13:52 | HHI.NSPN ---
No change_ History Interval History Patient in ICU No significant change at present Followed for cerebral hemorrhage System Review Comments no change Exam Results Vital Signs Date Time Temp Pulse Resp B/P (MAP) Pulse Ox O2 Delivery O2 Flow Rate FiO2 03/13/17 12:10 94 154/74 03/13/17 12:00 99.9 19 97 03/13/17 11:02 21 03/13/17 07:00 Room Air 03/12/17 07:00 2.00 Intake and Output 03/13/17 03/13/17 03/14/17 08:00 16:00 00:00 Intake Total 720 ml 583 ml Output Total 1400 ml Balance -680 ml 583 ml Physical Examination Patient is alert and awake Mild confusion Follows commands and recognizes family Moves all extremities Medical Decision Making Impression and Plan Patient is stable. No significant change. Discussed with family P: Repeat ct in am Total Minutes: 15 Oswald Rawls MD Mar 13, 2017 13:52
[2017-03-13] MEDS: HEPARIN SODIUM - SQ 10,000 UNITS/ML VIAL SQ SCH (21:05)
[2017-03-13 23:16] LABS: BICARBONATE 21.1 MEQ/L (21.0-32.0); MAGNESIUM 2.3 MG/DL (1.5-2.5)
[2017-03-13 23:19] LABS: POTASSIUM 2.9 MEQ/L (3.5-5.1)
[2017-03-13] MEDS ORDERED: POTASSIUM CHLORIDE 10 MEQ CAP PO ONE (23:45)
[2017-03-13] MEDS: POTASSIUM CHLOR 10 MEQ PREMIX 100 ML IV SCH (23:56)
[2017-03-14] VITALS (18 sets, daily range): BP systolic 128–176; BP diastolic 61–100; PULSE 45–80; RESP 19–25; TEMP 98.1–102.3; O2SAT 93–100
[2017-03-14] MEDS: POTASSIUM CHLOR 10 MEQ PREMIX 100 ML IV SCH ×3 (01:00→03:17)
[2017-03-14] MEDS: SODIUM CHLORIDE 23.4% INJ 188 MEQ in SODIUM CHLOR 0.9% 1000 ML INJ 1,000 ML IV SCH (03:16)
[2017-03-14] MEDS: hydrALAZINE HCL 20 MG/ML VIAL IV PUSH PRN ×3 (05:07→12:07)
[2017-03-14 06:09] LABS: AUTOMATED NEUTROPHIL # 10.1 TH/MM3 (1.8-7.7); BASOPHIL # 0.1 TH/MM3 (0-0.2); BASOPHIL % 0.5 % (0.0-2.0); EOSINOPHIL # 0.1 TH/MM3 (0-0.4); EOSINOPHIL % 1.1 % (0.0-4.0); HEMO FLAGS DIFF FINAL; LYMPH % 12.5 % (9.0-44.0); LYMPHOCYTE # 1.7 TH/MM3 (1.0-4.8); MEAN CELL VOLUME 90.4 FL (80.0-100.0); MEAN CORPUSCULAR HEMOGLOBIN 30.5 PG (27.0-34.0); MEAN CORPUSCULAR HGB CONC 33.8 % (32.0-36.0); MONO % 10.4 % (0.0-8.0); NEUT % 75.5 % (16.0-70.0); PLATELET COUNT 289 TH/MM3 (150-450); RED BLOOD COUNT 3.99 MIL/MM3 (4.50-5.90); RED CELL DISTRIBUTION WIDTH 13.1 % (11.6-17.2); WHITE BLOOD COUNT 13.3 TH/MM3 (4.0-11.0)
[2017-03-14] MEDS ORDERED: MAGNESIUM SULFATE INJ 2 GM in SODIUM CHLORIDE 0.9% INJ 96 ML IV PRN (08:00)
[2017-03-14] MEDS ORDERED: POTASSIUM CHLORIDE 25 MEQ EFFERVESCENT TAB PO PRN (08:00)
[2017-03-14] MEDS ORDERED: MAGNESIUM OXIDE 400 MG TAB PO PRN (08:00)
[2017-03-14] MEDS ORDERED: MAGNESIUM SULFATE INJ 4 GM in SODIUM CHLORIDE 0.9% INJ 92 ML IV PRN (08:00)
[2017-03-14] MEDS ORDERED: SODIUM PHOSPHATE INJ 30 MMOL in SODIUM CHLOR 0.9% 250 ML INJ 240 ML IV PRN (08:00)
[2017-03-14] MEDS ORDERED: POTASSIUM CHLOR 40 MEQ PREMIX 100 ML IV PRN ×2 (08:00)
[2017-03-14] MEDS ORDERED: POTASSIUM PHOSPHATE MONOBASIC 500 MG TAB PO PRN (08:00)
[2017-03-14] MEDS ORDERED: POTASSIUM CHLOR 20 MEQ PREMIX 100 ML IV PRN (08:00)
[2017-03-14] MEDS ORDERED: POTASSIUM PHOSPHATE INJ 30 MMOL in SODIUM CHLOR 0.9% 250 ML INJ 250 ML IV PRN (08:00)
[2017-03-14] MEDS ORDERED: POTASSIUM PHOSPHATE MONOBASIC 500 MG TAB PO/TUBE PRN (08:00)
[2017-03-14] MEDS: levETIRAcetam INJ 500 MG in SODIUM CHLORIDE 0.9% INJ 100 ML IV SCH ×2 (08:04→20:17)
[2017-03-14] MEDS: amLODIPine BESYLATE 5 MG TAB PO SCH (08:04)
[2017-03-14] MEDS: FAMOTIDINE 20 MG/2 ML VIAL IV PUSH SCH ×2 (08:04→20:18)
[2017-03-14] MEDS: SODIUM CHLORIDE 0.9% FLUSH 10 ML FLUSH IV FLUSH SCH ×2 (08:04→20:20)
[2017-03-14] MEDS: DOCUSATE SODIUM 50 MG/SENNA 8.6 MG TAB PO SCH ×2 (08:05→20:19)
[2017-03-14] MEDS: HEPARIN SODIUM - SQ 10,000 UNITS/ML VIAL SQ SCH ×2 (08:06→20:19)
--- NOTE | 2017-03-14 08:07 | HHI.CCPN ---
Subjective Remarks/Hospital Course 76 year-old male with a medical history significant for hypertension, hyperlipidemia, prior history of right temporal intracranial hemorrhage in January 2011 who developed right sided headache around 8 AM one day prior to his arrival on 03/09/17 in the morning. He pretty much stayed in bed all day. noticed that he was dragging his left leg while walking to the bathroom yesterday evening and also appeared to have some weakness in the left upper extremity. He was responding appropriately at the time however was slightly slow and drowsy. This morning on waking up patient's noticed that he was worse in terms of his neurologic status in more drowsy with persistent headache and decreased movement in left upper extremity hence EMS was called and patient was brought to the ER. Head CT done in ER revealed right temporal intraparenchymal hemorrhage. Dr. Hernández from neurosurgery was contacted and requested admission to critical care medicine service to the ICU with neurosurgery consult. I evaluated the patient in the ER after being notified of the consult with Dr. Hernández being at the bedside at the time as well. History was obtained by reviewing records and discussion with patient's and Dr. Hernández at the bedside. Patient was awake and alert and following commands with what appeared to be sensory inattention on the left side though he was moving all 4 extremities. 03/11: Remains alert, swallows well. Airway patent. 03/12: Drowsy, easily arousable, left-sided weakness present as before. Neurologic status fluctuates. Subjective: 03/13 Was agitated overnight, attempting to pull Martines out and attempted to get out of bed twice so in 4 point soft restraints for safety. Speech recommended pureed diet but he had not been eating much so were considering Dobhoff however this morning ate 50% of breakfast. Has L hemiparesis but follows commands. Remains on cardene drip to meet BP targets. 03/14: Agitated all night, asleep now. Protects airway, breathing comfortably. Swallow appears intact. Na > 150. Will stop 2% saline and watch osmolality closely. Objective Vital Signs Date Time Temp Pulse Resp B/P (MAP) Pulse Ox O2 Delivery O2 Flow Rate FiO2 03/14/17 06:00 59 03/14/17 05:10 160/67 (98) 03/14/17 04:00 99.6 22 100 03/13/17 20:00 Room Air 03/13/17 11:02 21 03/12/17 07:00 2.00 Intake and Output 03/14/17 03/14/17 03/15/17 08:00 16:00 00:00 Intake Total 1567 ml Output Total 500 ml Balance 1067 ml Result Diagram: 03/14/17 0459 03/13/17 5767 Objective Remarks Drips: Cardene 6 mg per hour d/c 2% NaCl at 60 mL per hour GENERAL: Well-nourished, well-developed male patient. SKIN: Skin warm, dry. HEAD: Normocephalic. Atraumatic. EYES: No scleral icterus. No injection or drainage. PERRLA. NECK: Supple, trachea midline. CARDIOVASCULAR: Regular rate and rhythm with 2/6 systolic murmur RSB. No JVD. RESPIRATORY: Breathing comfortably and equal bilateral. Lungs sounds are clear to auscultation. On room air GASTROINTESTINAL: Abdomen soft, non-tender, nondistended. BS active. No guarding. MUSCULOSKELETAL: No cyanosis, or edema. Well perfused. Well-healed scar overlying left knee. NEUROLOGICAL: Sleeping. Opens eyes to command. Pupils 2 mm bilaterally reacting actively to light. L sided neglect. RLE 5/5 RUE 5/5 LLE 5/5 3/5 LUE A/P Assessment and Plan 76-year-old male with: Right temporal intracerebral hemorrhage Cerebral edema with right to left midline shift Uncontrolled hypertension Plan: Neuro: Follow neuro checks per protocol. Neurosurgery following, Dr. Hernández. Received mannitol in ER. Continue 2% saline, decrease to 20 ml/hr. Follow serial sodium and serum osmolarity. Out of bed with assist, PT consult. Followup CT brain 03/11 - stable Right temporal lobe hemorrhage. No e/o aneurysm of vascular malformation. Cardiovascular: Nicardipine gtt. to keep SBP less than 160 mmHg, now weaned to 3 mg/hr. Add Norvasc 5 mg po daily. Add lisinopril. Pulmonary: Supplemental O2 as needed. Currently protecting airway. GI/liver: Pureed diet per speech/ swallow therapist. Intake is improving so will hold off on Dobhoff for now. Renal/: Monitor intake output, monitor and replete electrolytes, follow BUN creatinine.. Follow serial sodium and osmolarity. Remove Martines ID: Leukocytosis and temp max 100.0 may be secondary to ICH. Check CXR and blood cultures. Ua was negative 03/10. Endocrine: SSI for glycemic control if needed. Heme: Follow CBC Prophylaxis: Pepcid IV, SCDs. Initiate heparin 5000 subcut q12 for DVT prophylaxis per discussion with Dr. Rawls. Discussed with patient's family at bedside in detail regarding current clinical status and plan of care and they voiced understanding. Filled out paperwork regarding cruise trip insurance at their request. Overall impression: Stable hemodynamic and respiratory function. Jesus Wylie MD Mar 14, 2017 08:07
[2017-03-14] MEDS: LISINOPRIL 5 MG TAB PO SCH ×2 (09:17→20:19)
--- NOTE | 2017-03-14 10:47 | HHI.NSPN ---
No complaints History Interval History Patient in ICU No significant change at present Followed for cerebral hemorrhage System Review Comments no change Exam Results Vital Signs Date Time Temp Pulse Resp B/P (MAP) Pulse Ox O2 Delivery O2 Flow Rate FiO2 03/14/17 06:00 59 03/14/17 05:10 160/67 (98) 03/14/17 04:00 99.6 22 100 03/13/17 20:00 Room Air 03/13/17 11:02 21 03/12/17 07:00 2.00 Intake and Output 03/14/17 03/14/17 03/15/17 08:00 16:00 00:00 Intake Total 1567 ml Output Total 500 ml Balance 1067 ml Physical Examination Lethargic this am, but awakens Mild confusion Restless at night Follows commands Moves all extremities Medical Decision Making Impression and Plan Patient is stable. No significant change. P: Continue support CT in am Total Minutes: 15 Oswald Rawls MD Mar 14, 2017 10:46
[2017-03-14] MEDS: LABETALOL HCL 100 MG/20 ML VIAL IV PUSH PRN (13:13)
[2017-03-14] MEDS ORDERED: ACETAMINOPHEN 1000 MG/100 ML 65 ML IV ONE (20:15)
[2017-03-14] MEDS: POTASSIUM CHLOR 20 MEQ PREMIX 100 ML IV PRN ×2 (20:19→23:06)
[2017-03-14 22:26] LABS: BACTERIA, URINE MANY /hpf; BLOOD, URINE NEG (NEG); COMMENT (UR) CATH-CULTURE IND; CULTURE IF INDICATED CATH CULTURE IND; GLUCOSE,URINE NEG (NEG); KETONE, URINE NEG (NEG); MUCUS URINE FEW /lpf (OCC); NITRITE,URINE NEG (NEG); PH, URINE 6.5 (5.0-8.5); URINE COLOR YELLOW (YELLW/STRAW)
[2017-03-15] VITALS (19 sets, daily range): BP systolic 146–199; BP diastolic 67–95; PULSE 53–70; RESP 17–20; TEMP 98.1–99.4; O2SAT 93–99
[2017-03-15] MEDS: cefTRIAXone INJ 1,000 MG in SODIUM CHLORIDE 0.9% INJ 100 ML IV SCH (03:15)
[2017-03-15] MEDS: CHLORHEXIDINE GLUCONATE 2 % 1 PACK (2 CLOTHS) TOP SCH (04:00)
[2017-03-15 05:09] LABS: AUTOMATED NEUTROPHIL # 10.7 TH/MM3 (1.8-7.7); BASOPHIL # 0.1 TH/MM3 (0-0.2); BASOPHIL % 0.6 % (0.0-2.0); EOSINOPHIL # 0.1 TH/MM3 (0-0.4); EOSINOPHIL % 0.7 % (0.0-4.0); HEMATOCRIT 38.5 % (39.0-51.0); HEMO FLAGS DIFF FINAL; LYMPH % 9.8 % (9.0-44.0); LYMPHOCYTE # 1.3 TH/MM3 (1.0-4.8); MEAN CELL VOLUME 91.1 FL (80.0-100.0); MEAN CORPUSCULAR HEMOGLOBIN 30.5 PG (27.0-34.0); MEAN CORPUSCULAR HGB CONC 33.5 % (32.0-36.0); MONO % 10.2 % (0.0-8.0); NEUT % 78.7 % (16.0-70.0); PLATELET COUNT 269 TH/MM3 (150-450); RED BLOOD COUNT 4.22 MIL/MM3 (4.50-5.90); RED CELL DISTRIBUTION WIDTH 13.3 % (11.6-17.2); WHITE BLOOD COUNT 13.5 TH/MM3 (4.0-11.0)
[2017-03-15 05:39] LABS: BICARBONATE 24.8 MEQ/L (21.0-32.0); POTASSIUM 3.4 MEQ/L (3.5-5.1)
--- NOTE | 2017-03-15 05:51 | RADRPT ---
EXAM DATE/TIME: 03/15/2017 05:04 [facility] COMPARISON: MRI BRAIN W/O CONTRAST, March 11, 2017, 10:47. CT BRAIN W/O CONTRAST, March 11, 2017, 6:38. INDICATIONS : Follow up hemorrhage. RADIATION DOSE: 43.00 CTDIvol (mGy) MEDICAL HISTORY : Hypertension. SURGICAL HISTORY : None. ENCOUNTER: Subsequent ACUITY: 4 - 6 days PAIN SCALE: Non-responsive LOCATION: cranial TECHNIQUE: Multiple contiguous axial images were obtained of the head. Using automated exposure control and adj ustment of the mA and/or kV according to patient size, radiation dose was kept as low as reasonably a chievable to obtain optimal diagnostic quality images. DICOM format image data is available electro nically for review and comparison. FINDINGS: CEREBRUM: There continues to be hemorrhage throughout the right temporal lobe. There is suspected subdural hemo rrhage at the right tentorium. There is interventricular hemorrhage at the right temporal horn. There is subarachnoid hemorrhage seen over the convexities bilaterally in the parietal lobes. There is 6 m m of [id number]-mitt midline shift. The basal cisterns are open. New areas of hemorrhage are not seen. POSTERIOR FOSSA: The cerebellum and brainstem are intact. The 4th ventricle is midline. The cerebellopontine angle i s unremarkable. EXTRACRANIAL: The visualized portion of the orbits is intact. SKULL: The calvaria is intact. No evidence of skull fracture. CONCLUSION: Persistent parenchymal hemorrhage throughout the right temporal lobe, a right tentorial subdural hemo rrhage, right interventricular hemorrhage, and bilateral subarachnoid hemorrhage all of which appear unchanged from the prior exam. There continues to be 6 mm of [id number]-ly-htnx midline shift. Zak Quevedo MD on March 15, 2017 at 5:42 Board Certified Radiologist. This report was verified electronically.
[2017-03-15] MEDS: POTASSIUM CHLOR 20 MEQ PREMIX 100 ML IV PRN ×2 (07:04→09:46)
[2017-03-15] MEDS: hydrALAZINE HCL 20 MG/ML VIAL IV PUSH PRN ×3 (08:22→22:05)
[2017-03-15] MEDS: SODIUM CHLORIDE 0.9% FLUSH 10 ML FLUSH IV FLUSH SCH ×2 (08:39→21:06)
[2017-03-15] MEDS: FAMOTIDINE 20 MG/2 ML VIAL IV PUSH SCH ×2 (08:39→21:05)
[2017-03-15] MEDS: levETIRAcetam INJ 500 MG in SODIUM CHLORIDE 0.9% INJ 100 ML IV SCH ×2 (08:39→21:05)
[2017-03-15] MEDS: DOCUSATE SODIUM 50 MG/SENNA 8.6 MG TAB PO SCH ×2 (08:40→21:00)
[2017-03-15] MEDS: amLODIPine BESYLATE 5 MG TAB PO SCH ×2 (08:40→09:00)
[2017-03-15] MEDS: LISINOPRIL 5 MG TAB PO SCH ×3 (08:40→21:05)
[2017-03-15] MEDS: HEPARIN SODIUM - SQ 10,000 UNITS/ML VIAL SQ SCH ×2 (09:46→21:05)
--- NOTE | 2017-03-15 10:33 | HHI.CCPN ---
Subjective Remarks/Hospital Course 76 year-old male with a medical history significant for hypertension, hyperlipidemia, prior history of right temporal intracranial hemorrhage in January 2011 who developed right sided headache around 8 AM one day prior to his arrival on 03/09/17 in the morning. He pretty much stayed in bed all day. noticed that he was dragging his left leg while walking to the bathroom yesterday evening and also appeared to have some weakness in the left upper extremity. He was responding appropriately at the time however was slightly slow and drowsy. This morning on waking up patient's noticed that he was worse in terms of his neurologic status in more drowsy with persistent headache and decreased movement in left upper extremity hence EMS was called and patient was brought to the ER. Head CT done in ER revealed right temporal intraparenchymal hemorrhage. Dr. Hernández from neurosurgery was contacted and requested admission to critical care medicine service to the ICU with neurosurgery consult. I evaluated the patient in the ER after being notified of the consult with Dr. Hernández being at the bedside at the time as well. History was obtained by reviewing records and discussion with patient's and Dr. Hernández at the bedside. Patient was awake and alert and following commands with what appeared to be sensory inattention on the left side though he was moving all 4 extremities. 03/11: Remains alert, swallows well. Airway patent. 03/12: Drowsy, easily arousable, left-sided weakness present as before. Neurologic status fluctuates. Subjective: 03/13 Was agitated overnight, attempting to pull Martines out and attempted to get out of bed twice so in 4 point soft restraints for safety. Speech recommended pureed diet but he had not been eating much so were considering Dobhoff however this morning ate 50% of breakfast. Has L hemiparesis but follows commands. Remains on cardene drip to meet BP targets. 03/14: Agitated all night, asleep now. Protects airway, breathing comfortably. Swallow appears intact. Na > 150. Will stop 2% saline and watch osmolality closely. 03/15: CT without change. Remains agitated. Objective Vital Signs Date Time Temp Pulse Resp B/P (MAP) Pulse Ox O2 Delivery O2 Flow Rate FiO2 03/15/17 07:05 96 21 03/15/17 06:00 57 20 149/72 (97) 03/15/17 04:00 98.1 03/14/17 20:00 Room Air 03/12/17 07:00 2.00 Intake and Output 03/15/17 03/15/17 03/16/17 08:00 16:00 00:00 Intake Total 120 ml Output Total 450 ml Balance -330 ml Result Diagram: 03/15/1743803/15/17438 Objective Remarks Drips: Cardene d/c 2% NaCl GENERAL: Well-nourished, well-developed male patient. SKIN: Skin warm, dry. HEAD: Normocephalic. Atraumatic. EYES: No scleral icterus. No injection or drainage. PERRLA. NECK: Supple, trachea midline. CARDIOVASCULAR: Regular rate and rhythm. No JVD. RESPIRATORY: Breathing comfortably and equal bilateral. Lungs sounds are clear. GASTROINTESTINAL: Abdomen soft, non-tender, nondistended. BS active. No guarding. MUSCULOSKELETAL: No cyanosis, or edema. Well perfused. Well-healed scar overlying left knee. NEUROLOGICAL: Sleeping. Opens eyes to command. Pupils 2 mm bilaterally reacting actively to light. L sided neglect. RLE 5/5 RUE 5/5 LLE 5/5 05/31 LUE A/P Assessment and Plan 76-year-old male with: Right temporal intracerebral hemorrhage Cerebral edema with right to left midline shift Uncontrolled hypertension Plan: Neuro: Follow neuro checks per protocol. Neurosurgery following, Dr. Hernández. Received mannitol in ER. Hold 2% saline. Follow serial sodium and serum osmolarity. Out of bed with assist, PT consult. Followup CT brain 03/11 - stable Right temporal lobe hemorrhage. No e/o aneurysm of vascular malformation. Cardiovascular: Nicardipine gtt. to keep SBP less than 160 mmHg, now weaned to 3 mg/hr. Norvasc 5 mg po daily. Add lisinopril. Pulmonary: Supplemental O2 as needed. Currently protecting airway. GI/liver: Pureed diet per speech/ swallow therapist. Intake is improving so will hold off on Dobhoff for now. Renal/: Monitor intake output, monitor and replete electrolytes, follow BUN creatinine.. Follow serial sodium and osmolarity. Remove Martines ID: Leukocytosis may be secondary to ICH. Check CXR and blood cultures. Ua was negative 03/10. Endocrine: SSI for glycemic control if needed. Heme: Follow CBC Prophylaxis: Pepcid IV, SCDs. Initiate heparin 5000 subcut q12 for DVT prophylaxis per discussion with Dr. Rawls. Ask NS today. Overall impression: Stable hemodynamic and respiratory function. Large hemorrhagic area, anticipate permanent deficit. Jesus Wylie MD Mar 15, 2017 10:33
[2017-03-15] MEDS: LABETALOL HCL 100 MG/20 ML VIAL IV PUSH PRN (11:09)
[2017-03-16] VITALS (16 sets, daily range): BP systolic 138–171; BP diastolic 66–84; PULSE 55–87; RESP 19–20; TEMP 98.3–100.6; O2SAT 92–97
[2017-03-16] MEDS: cefTRIAXone INJ 1,000 MG in SODIUM CHLORIDE 0.9% INJ 100 ML IV SCH (01:33)
[2017-03-16] MEDS: CHLORHEXIDINE GLUCONATE 2 % 1 PACK (2 CLOTHS) TOP SCH (03:00)
[2017-03-16 06:55] LABS: BICARBONATE 24.2 MEQ/L (21.0-32.0); POTASSIUM 3.6 MEQ/L (3.5-5.1)
[2017-03-16] MEDS: HEPARIN SODIUM - SQ 10,000 UNITS/ML VIAL SQ SCH ×2 (09:00→23:52)
[2017-03-16] MEDS: levETIRAcetam INJ 500 MG in SODIUM CHLORIDE 0.9% INJ 100 ML IV SCH ×2 (09:00→23:23)
[2017-03-16] MEDS: amLODIPine BESYLATE 5 MG TAB PO SCH (09:00)
[2017-03-16] MEDS: SODIUM CHLORIDE 0.9% FLUSH 10 ML FLUSH IV FLUSH SCH ×2 (09:00→23:24)
[2017-03-16] MEDS: FAMOTIDINE 20 MG/2 ML VIAL IV PUSH SCH ×2 (09:00→23:24)
[2017-03-16] MEDS: LISINOPRIL 5 MG TAB PO SCH ×2 (09:00→21:00)
[2017-03-16] MEDS: LABETALOL HCL 100 MG/20 ML VIAL IV PUSH PRN ×3 (09:32→22:31)
[2017-03-16] MEDS: DOCUSATE SODIUM 50 MG/SENNA 8.6 MG TAB PO SCH ×2 (09:52→21:00)
--- NOTE | 2017-03-16 10:13 | HHI.CCPN ---
Subjective Remarks/Hospital Course 76 year-old male with a medical history significant for hypertension, hyperlipidemia, prior history of right temporal intracranial hemorrhage in January 2011 who developed right sided headache around 8 AM one day prior to his arrival on 03/09/17 in the morning. He pretty much stayed in bed all day. noticed that he was dragging his left leg while walking to the bathroom yesterday evening and also appeared to have some weakness in the left upper extremity. He was responding appropriately at the time however was slightly slow and drowsy. This morning on waking up patient's noticed that he was worse in terms of his neurologic status in more drowsy with persistent headache and decreased movement in left upper extremity hence EMS was called and patient was brought to the ER. Head CT done in ER revealed right temporal intraparenchymal hemorrhage. Dr. Hernández from neurosurgery was contacted and requested admission to critical care medicine service to the ICU with neurosurgery consult. I evaluated the patient in the ER after being notified of the consult with Dr. Hernández being at the bedside at the time as well. History was obtained by reviewing records and discussion with patient's and Dr. Hernández at the bedside. Patient was awake and alert and following commands with what appeared to be sensory inattention on the left side though he was moving all 4 extremities. 03/11: Remains alert, swallows well. Airway patent. 03/12: Drowsy, easily arousable, left-sided weakness present as before. Neurologic status fluctuates. Subjective: 03/13 Was agitated overnight, attempting to pull Martines out and attempted to get out of bed twice so in 4 point soft restraints for safety. Speech recommended pureed diet but he had not been eating much so were considering Dobhoff however this morning ate 50% of breakfast. Has L hemiparesis but follows commands. Remains on cardene drip to meet BP targets. 03/14: Agitated all night, asleep now. Protects airway, breathing comfortably. Swallow appears intact. Na > 150. Will stop 2% saline and watch osmolality closely. 03/15: CT without change. Remains agitated. 03/16: A little less restless today. Protects airway well. Objective Vital Signs Date Time Temp Pulse Resp B/P (MAP) Pulse Ox O2 Delivery O2 Flow Rate FiO2 03/16/17 07:49 92 21 03/16/17 07:00 Room Air 03/16/17 06:00 59 03/16/17 05:00 20 144/84 (104) 03/16/17 04:00 98.8 03/12/17 07:00 2.00 Intake and Output 03/16/17 03/16/17 03/16/17 07:59 15:59 23:59 Intake Total 50 ml Output Total 0 ml Balance 50 ml Result Diagram: 03/15/17 0439 03/16/17 0553 Objective Remarks Drips: Cardene d/c 2% NaCl GENERAL: Well-nourished, well-developed male patient. SKIN: Skin warm, dry. HEAD: Normocephalic. Atraumatic. EYES: No scleral icterus. No injection or drainage. CASSANDRA. NECK: Supple, trachea midline. CARDIOVASCULAR: Regular rate and rhythm. No JVD. RESPIRATORY: Breathing comfortably and equal bilateral. Lungs sounds are clear. Normal excursions. GASTROINTESTINAL: Abdomen soft, non-tender, nondistended. BS active. No guarding. MUSCULOSKELETAL: No cyanosis, or edema. Well perfused. . NEUROLOGICAL: Sleeping. Opens eyes to command. Pupils 2 mm bilaterally reactive. L sided neglect. Right side 5/5. LLE 5/5 3/5 LUE A/P Assessment and Plan 76-year-old male with: Right temporal intracerebral hemorrhage Cerebral edema with right to left midline shift Uncontrolled hypertension Plan: Neuro: Follow neuro checks per protocol. Neurosurgery following, Dr. Hernández. Received mannitol in ER. Hold 2% saline. Follow serial sodium and serum osmolarity. Out of bed with assist, PT consult. Followup CT brain 03/11 - stable Right temporal lobe hemorrhage. No e/o aneurysm of vascular malformation. Cardiovascular: Nicardipine gtt. to keep SBP less than 160 mmHg, now weaned to 3 mg/hr. Norvasc 5 mg po daily. Add lisinopril. Pulmonary: Supplemental O2 as needed. Currently protecting airway. GI/liver: Pureed diet per speech/ swallow therapist. Intake is improving so will hold off on Dobhoff for now. Renal/: Monitor intake output, monitor and replete electrolytes, follow BUN creatinine.. Follow serial sodium and osmolarity. Remove Martines ID: Leukocytosis may be secondary to ICH. Check CXR and blood cultures. Ua was negative 03/10. Endocrine: SSI for glycemic control if needed. Heme: Follow CBC Prophylaxis: Pepcid IV, SCDs. Initiate heparin 5000 subcut q12 for DVT prophylaxis per discussion with Dr. Rawls. Ask NS if OK to continue. Overall impression: Stable hemodynamic and respiratory function. Large hemorrhagic area, anticipate permanent deficit. Jesus Wylie MD Mar 16, 2017 10:13
--- NOTE | 2017-03-16 10:48 | RADRPT ---
EXAM DATE/TIME: 03/16/2017 10:26 [facility] COMPARISON: No previous studies available for comparison. INDICATIONS : Intracerebral hemorrhage. RADIATION DOSE: 38.16 CTDIvol (mGy) MEDICAL HISTORY : Hypertension. SURGICAL HISTORY : Tonsillectomy. ENCOUNTER: Initial ACUITY: 1 day PAIN SCALE: 0/10 LOCATION: cranial TECHNIQUE: Multiple contiguous axial images were obtained of the head. Using automated exposure control and adj ustment of the mA and/or kV according to patient size, radiation dose was kept as low as reasonably a chievable to obtain optimal diagnostic quality images. DICOM format image data is available electro nically for review and comparison. FINDINGS: CEREBRUM: 30 and a significant hemorrhage in the right temporal lobe both intra-axial and intraparenchymal hemo rrhage. The largest area of hemorrhage measures 2.5 x 4.7 cm across, unchanged. There again is some shift from right to left with septum pellucidum being 6 mm shifted unchanged. There is a small amount of subarachnoid hemorrhage in the high left parietal region. Tiny amount of hemorrhage in the high r ight parietal region POSTERIOR FOSSA: The cerebellum and brainstem are intact. The 4th ventricle is midline. The cerebellopontine angle i s unremarkable. EXTRACRANIAL: The visualized portion of the orbits is intact. Mild ethmoidal sinus disease SKULL: The calvaria is intact. No evidence of skull fracture. CONCLUSION: Significant intraparenchymal and subarachnoid hemorrhage throughout the right temporal lobe in a very similar pattern and distribution to the 18th. I don't see any new areas of hemorrhage. Stable midlin e shift and small areas of subarachnoid hemorrhage in the parietal regions are unchanged. Odilon Miller MD on March 16, 2017 at 10:44 Board Certified Radiologist. This report was verified electronically.
[2017-03-16] MEDS: hydrALAZINE HCL 20 MG/ML VIAL IV PUSH PRN ×2 (17:02→22:33)
--- NOTE | 2017-03-16 21:31 | MG ---
cc: AGUSTO AVELAR MD Lab No: Date: 03/16/2017 Age: Sex: M Race: ELECTROENCEPHALOGRAM RECORD NUMBER [id number] DATE OF 1940 HISTORY A 76-year-old with a history of dizziness, headaches, mental status changes. DESCRIPTION Excessive myogenic artifact present throughout the recording, bilateral frontal temporal regions. Interpretable epochs. EEG shows 3-4 Hz activity, 10-40 microvolts. Small sharp transient T5 epoch 91. Mild driving with photic stimulation. Asymmetric slowing in the right side. Single lead EKG showing sinus rhythm. INTERPRETATION Mild to moderate encephalopathy. Mild asymmetric right hemispheric slowing. Moderate amount of myogenic artifact present. Clinical correlation. Agusto Avelar MD MG/KK /9:03 PM /9:20 PM
[2017-03-17] VITALS (11 sets, daily range): BP systolic 142–187; BP diastolic 68–85; PULSE 62–76; RESP 18–22; TEMP 98.8–99.7; O2SAT 94–97
[2017-03-17] MEDS: CHLORHEXIDINE GLUCONATE 2 % 1 PACK (2 CLOTHS) TOP SCH (00:25)
[2017-03-17] MEDS: cefTRIAXone INJ 1,000 MG in SODIUM CHLORIDE 0.9% INJ 100 ML IV SCH (03:27)
[2017-03-17] MEDS: hydrALAZINE HCL 20 MG/ML VIAL IV PUSH PRN (04:13)
[2017-03-17 06:10] LABS: BICARBONATE 23.8 MEQ/L (21.0-32.0); POTASSIUM 3.5 MEQ/L (3.5-5.1)
--- NOTE | 2017-03-17 07:03 | HHI.CCPN ---
Subjective Remarks/Hospital Course 76 year-old male with a medical history significant for hypertension, hyperlipidemia, prior history of right temporal intracranial hemorrhage in January 2011 who developed right sided headache around 8 AM one day prior to his arrival on 03/09/17 in the morning. He pretty much stayed in bed all day. noticed that he was dragging his left leg while walking to the bathroom yesterday evening and also appeared to have some weakness in the left upper extremity. He was responding appropriately at the time however was slightly slow and drowsy. This morning on waking up patient's noticed that he was worse in terms of his neurologic status in more drowsy with persistent headache and decreased movement in left upper extremity hence EMS was called and patient was brought to the ER. Head CT done in ER revealed right temporal intraparenchymal hemorrhage. Dr. Heránndez from neurosurgery was contacted and requested admission to critical care medicine service to the ICU with neurosurgery consult. I evaluated the patient in the ER after being notified of the consult with Dr. Hernández being at the bedside at the time as well. History was obtained by reviewing records and discussion with patient's and Dr. Hernández at the bedside. Patient was awake and alert and following commands with what appeared to be sensory inattention on the left side though he was moving all 4 extremities. 03/11: Remains alert, swallows well. Airway patent. 03/12: Drowsy, easily arousable, left-sided weakness present as before. Neurologic status fluctuates. Subjective: 03/13 Was agitated overnight, attempting to pull Martines out and attempted to get out of bed twice so in 4 point soft restraints for safety. Speech recommended pureed diet but he had not been eating much so were considering Dobhoff however this morning ate 50% of breakfast. Has L hemiparesis but follows commands. Remains on cardene drip to meet BP targets. 03/14: Agitated all night, asleep now. Protects airway, breathing comfortably. Swallow appears intact. Na > 150. Will stop 2% saline and watch osmolality closely. 03/15: CT without change. Remains agitated. 03/16: A little less restless today. Protects airway well. 03/17: Protects airway, intermittently more cooperative. To floor if acceptable with Neurosurgery. Persistent hypertension; will double lisinopril and norvasc, add hydralazine. Objective Vital Signs Date Time Temp Pulse Resp B/P (MAP) Pulse Ox O2 Delivery O2 Flow Rate FiO2 03/17/17 06:00 64 03/17/17 04:30 95 03/17/17 04:00 99.0 20 179/85 (116) 03/16/17 19:00 Room Air 03/16/17 07:49 21 Intake and Output 03/17/17 03/17/17 03/18/17 08:00 16:00 00:00 Intake Total 100 ml Output Total 200 ml Balance -100 ml Result Diagram: 03/15/17 0439 03/17/17 0323 Other Results Microbiology Date/Time Source Procedure Growth Status 03/14/17 20:25 Urine Catheterized Urine Urine Culture - Final Escherichia Coli Complete Objective Remarks Drips: d/c 2% NaCl GENERAL: Well-nourished, well-developed male patient. SKIN: Skin warm, dry. HEAD: Normocephalic. Atraumatic. EYES: No scleral icterus. No injection or drainage. CASSANDRA. NECK: Supple, trachea midline. Airway widely patent. CARDIOVASCULAR: Regular rate and rhythm. No JVD. RESPIRATORY: Breathing comfortably and equal bilateral. Lungs sounds are clear. Normal excursions. GASTROINTESTINAL: Abdomen soft, non-tender, nondistended. BS active. No guarding. MUSCULOSKELETAL: No cyanosis, or edema. Well perfused. . NEUROLOGICAL: Tracks with eyes. Opens eyes to command. Pupils 2 mm bilaterally reactive. L sided neglect. Right side 5/5. LLE 5/5 3/5 LUE. Protects airway. A/P Assessment and Plan 76-year-old male with: Right temporal intracerebral hemorrhage Cerebral edema with right to left midline shift Uncontrolled hypertension Plan: Neuro: Follow neuro checks per protocol. Neurosurgery following, Dr. Hernández. Received mannitol in ER. Hold 2% saline. Follow serial sodium and serum osmolarity. Out of bed with assist, PT consult. Followup CT brain 03/11 - stable Right temporal lobe hemorrhage. No e/o aneurysm of vascular malformation. Cardiovascular: Nicardipine gtt. to keep SBP less than 160 mmHg, now weaned to 3 mg/hr. Norvasc 5 mg po daily. Add lisinopril. Pulmonary: Supplemental O2 as needed. Currently protecting airway. GI/liver: Pureed diet per speech/ swallow therapist. Intake is improving so will hold off on Dobhoff for now. Renal/: Monitor intake output, monitor and replete electrolytes, follow BUN creatinine.. Follow serial sodium and osmolarity. Remove Martines ID: Leukocytosis may be secondary to ICH. Check CXR and blood cultures. Ua was negative positive 03/14, GNR -> Ceftriaxone X 5 days. Endocrine: SSI for glycemic control if needed. Heme: Follow CBC Prophylaxis: Pepcid IV, SCDs. Initiate heparin 5000 subcut q12 for DVT prophylaxis per discussion with Dr. Rawls. Ask NS if OK to continue. Overall impression: Stable hemodynamic and respiratory function. Large hemorrhagic area, anticipate permanent deficit. Jesus Wylie MD Mar 17, 2017 07:03
[2017-03-17] MEDS ORDERED: cloNIDine HCL 0.1 MG TAB PO PRN (07:15)
[2017-03-17] MEDS: LISINOPRIL 10 MG TAB PO SCH ×2 (09:18→20:17)
[2017-03-17] MEDS: levETIRAcetam INJ 500 MG in SODIUM CHLORIDE 0.9% INJ 100 ML IV SCH ×2 (09:20→20:18)
[2017-03-17] MEDS: SODIUM CHLORIDE 0.9% FLUSH 10 ML FLUSH IV FLUSH SCH ×2 (09:30→20:18)
[2017-03-17] MEDS: FAMOTIDINE 20 MG/2 ML VIAL IV PUSH SCH ×2 (09:30→20:18)
[2017-03-17] MEDS: hydrALAZINE HCL 50 MG TAB PO SCH ×3 (09:30→21:08)
[2017-03-17] MEDS: HEPARIN SODIUM - SQ 10,000 UNITS/ML VIAL SQ SCH ×2 (09:31→20:18)
[2017-03-17] MEDS: DOCUSATE SODIUM 50 MG/SENNA 8.6 MG TAB PO SCH ×2 (09:36→20:17)
[2017-03-18] VITALS (14 sets, daily range): BP systolic 139–171; BP diastolic 65–92; PULSE 64–86; RESP 18–20; TEMP 98.1–99.2; O2SAT 94–98
[2017-03-18] MEDS: cefTRIAXone INJ 1,000 MG in SODIUM CHLORIDE 0.9% INJ 100 ML IV SCH (02:35)
[2017-03-18] MEDS: CHLORHEXIDINE GLUCONATE 2 % 1 PACK (2 CLOTHS) TOP SCH (02:56)
[2017-03-18] MEDS: hydrALAZINE HCL 50 MG TAB PO SCH ×3 (05:46→21:25)
[2017-03-18 08:09] LABS: BICARBONATE 23.4 MEQ/L (21.0-32.0); MAGNESIUM 2.4 MG/DL (1.5-2.5); POTASSIUM 3.1 MEQ/L (3.5-5.1)
--- NOTE | 2017-03-18 08:17 | HHI.CCPN ---
Subjective Remarks/Hospital Course 76 year-old male with a medical history significant for hypertension, hyperlipidemia, prior history of right temporal intracranial hemorrhage in January 2011 who developed right sided headache around 8 AM one day prior to his arrival on 03/09/17 in the morning. He pretty much stayed in bed all day. noticed that he was dragging his left leg while walking to the bathroom yesterday evening and also appeared to have some weakness in the left upper extremity. He was responding appropriately at the time however was slightly slow and drowsy. This morning on waking up patient's noticed that he was worse in terms of his neurologic status in more drowsy with persistent headache and decreased movement in left upper extremity hence EMS was called and patient was brought to the ER. Head CT done in ER revealed right temporal intraparenchymal hemorrhage. Dr. Hernández from neurosurgery was contacted and requested admission to critical care medicine service to the ICU with neurosurgery consult. I evaluated the patient in the ER after being notified of the consult with Dr. Hernández being at the bedside at the time as well. History was obtained by reviewing records and discussion with patient's and Dr. Hernández at the bedside. Patient was awake and alert and following commands with what appeared to be sensory inattention on the left side though he was moving all 4 extremities. 03/11: Remains alert, swallows well. Airway patent. 03/12: Drowsy, easily arousable, left-sided weakness present as before. Neurologic status fluctuates. Subjective: 03/13 Was agitated overnight, attempting to pull Martines out and attempted to get out of bed twice so in 4 point soft restraints for safety. Speech recommended pureed diet but he had not been eating much so were considering Dobhoff however this morning ate 50% of breakfast. Has L hemiparesis but follows commands. Remains on cardene drip to meet BP targets. 03/14: Agitated all night, asleep now. Protects airway, breathing comfortably. Swallow appears intact. Na > 150. Will stop 2% saline and watch osmolality closely. 03/15: CT without change. Remains agitated. 03/16: A little less restless today. Protects airway well. 03/17: Protects airway, intermittently more cooperative. To floor if acceptable with Neurosurgery. Persistent hypertension; will double lisinopril and norvasc, add hydralazine. 03/18: Protects airway well. Intermittently agitated. Transfer when bed available. Objective Vital Signs Date Time Temp Pulse Resp B/P (MAP) Pulse Ox O2 Delivery O2 Flow Rate FiO2 03/18/17 05:38 98.6 71 18 171/80 (110) 95 03/18/17 01:23 Room Air 03/16/17 07:49 21 Intake and Output 03/18/17 03/18/17 03/19/17 08:00 16:00 00:00 Intake Total 160 ml Balance 160 ml Result Diagram: 03/15/17 0439 03/18/17 0658 Objective Remarks Drips: GENERAL: Calm today. SKIN: Skin warm, dry. HEAD: Normocephalic. Atraumatic. EYES: No scleral icterus. No injection or drainage. CASSANDRA. NECK: Supple, trachea midline. Airway widely patent. No obstruction. CARDIOVASCULAR: Regular rate and rhythm. No JVD. RESPIRATORY: Breathing comfortably and equal bilateral. Lungs sounds are clear. Normal excursions. GASTROINTESTINAL: Abdomen soft, non-tender, nondistended. BS active. No guarding. MUSCULOSKELETAL: No cyanosis, or edema. Well perfused. . NEUROLOGICAL: Tracks with eyes. Opens eyes to command. Pupils 2 mm bilaterally reactive. L sided neglect. Right side 5/5. LLE 5/5. LUE 3/5. Protects airway. A/P Assessment and Plan 76-year-old male with: Right temporal intracerebral hemorrhage Cerebral edema with right to left midline shift Uncontrolled hypertension Plan: Neuro: Follow neuro checks per protocol. Neurosurgery following, Dr. Hernández. Hold 2% saline. Follow serial sodium and serum osmolarity. Out of bed with assist, PT consult. Followup CT brain 03/11 - stable Right temporal lobe hemorrhage. No e/o aneurysm of vascular malformation. Cardiovascular: Nicardipine gtt. to keep SBP less than 160 mmHg, now off. Norvasc and lisinopril. Pulmonary: Supplemental O2 as needed. Currently protecting airway. GI/liver: Pureed diet per speech/ swallow therapist. Intake is improving so will hold off on Dobhoff for now. Renal/: Monitor intake output, monitor and replete electrolytes, follow BUN creatinine.. Follow serial sodium and osmolarity. Remove Martines ID: Leukocytosis may be secondary to ICH. Check CXR and blood cultures. Ua was negative initially, then positive 03/14, GNR -> E. coli -> Ceftriaxone X 5 days. Endocrine: SSI for glycemic control if needed. Heme: Follow CBC Prophylaxis: Pepcid IV, SCDs. Initiate heparin 5000 subcut q12 for DVT prophylaxis per discussion with NS. Overall impression: Stable hemodynamic and respiratory function. Large hemorrhagic area, anticipate permanent deficit. Jesus Wylie MD Mar 18, 2017 08:17
[2017-03-18] MEDS: DOCUSATE SODIUM 50 MG/SENNA 8.6 MG TAB PO SCH ×2 (08:55→21:24)
[2017-03-18] MEDS: HEPARIN SODIUM - SQ 10,000 UNITS/ML VIAL SQ SCH ×2 (08:55→21:25)
[2017-03-18] MEDS: levETIRAcetam INJ 500 MG in SODIUM CHLORIDE 0.9% INJ 100 ML IV SCH (08:55)
[2017-03-18] MEDS: SODIUM CHLORIDE 0.9% FLUSH 10 ML FLUSH IV FLUSH SCH ×2 (08:55→21:25)
[2017-03-18] MEDS: LISINOPRIL 10 MG TAB PO SCH ×2 (08:55→21:24)
[2017-03-18] MEDS: FAMOTIDINE 20 MG/2 ML VIAL IV PUSH SCH ×2 (08:55→21:24)
[2017-03-18] MEDS: POTASSIUM CHLORIDE 10 MEQ CONTROLLED RELEASE TAB PO ONE ×2 (10:46→12:07)
[2017-03-18 13:34] LABS: AUTOMATED NEUTROPHIL # 6.4 TH/MM3 (1.8-7.7); BASOPHIL # 0.1 TH/MM3 (0-0.2); BASOPHIL % 0.9 % (0.0-2.0); EOSINOPHIL # 0.2 TH/MM3 (0-0.4); EOSINOPHIL % 2.4 % (0.0-4.0); HEMATOCRIT 38.5 % (39.0-51.0); HEMO FLAGS DIFF FINAL; LYMPH % 19.4 % (9.0-44.0); LYMPHOCYTE # 1.9 TH/MM3 (1.0-4.8); MEAN CELL VOLUME 90.1 FL (80.0-100.0); MEAN CORPUSCULAR HEMOGLOBIN 30.7 PG (27.0-34.0); MEAN CORPUSCULAR HGB CONC 34.1 % (32.0-36.0); MONO % 12.6 % (0.0-8.0); NEUT % 64.7 % (16.0-70.0); PLATELET COUNT 297 TH/MM3 (150-450); RED BLOOD COUNT 4.27 MIL/MM3 (4.50-5.90); RED CELL DISTRIBUTION WIDTH 13.2 % (11.6-17.2); WHITE BLOOD COUNT 9.9 TH/MM3 (4.0-11.0)
--- NOTE | 2017-03-18 15:56 | HHI.NSPN ---
History Chief Complaint: Unable to obtain due to patient's lethargy. Interval History Laura is a 76-year-old male past medical history for hypertension, hyperlipidemia presents to the emergency department via EMS with new onset left sided weakness. According to EMS, the patient woke up yesterday morning around 8 AM complaining of a right-sided headache. He state in bed yesterday and rested. This morning when he woke up, his noticed that he was able to talk. According to EMS, last time seen normal was 8 AM yesterday morning. The patient is alert. He is oriented to person and place. He is not oriented to year, but does remember that the month is February. He reports sided headache. no seizure activity. No tongue bitting. No incontinence of stool or urine. He denies any fevers or chills. No chest pain or shortness of breath. No abdominal pain. No nausea, vomiting, diarrhea. He does have history of TIA. According to chart, he also has history of intracranial hemorrhage. CT brain showed a right temporal hemorrhage. Neurosurgical consultation was requested 03/11. Alert and a week. Persistent left hemiparesis. Follow up CT was done today. MRI of the brain is pending 03/12. Alert, awake, following commands. persistent left hemiparesis 03/13: Patient in ICU No significant change at present Followed for cerebral hemorrhage 03/18: The patient is seen on a regular med/surg floor having been transferred from the [facility] unit this morning. When seen he is lethargic and briefly mumbles. He does move all extremities spontaneously. System Review Comments Unable to obtain due to patient's lethargy. Exam Results 03/16/17 03/16/17 03/17/17 03/17/17 03/18/17 03/18/17 05:59 17:59 05:59 17:59 05:59 17:59 Intake Total 60 ml 155 ml 1351 ml 1324 ml 105 ml Output Total 0 ml 200 ml 650 ml Balance 60 ml 155 ml 1351 ml -200 ml 674 ml 105 ml Intake Oral 60 ml 50 ml 1146 ml 1224 ml IV Total 105 ml 205 ml 100 ml 105 ml Output Urine Total 200 ml 650 ml Emesis 0 ml # Voids 6 6 5 4 4 # Bowel Movements 2 1 1 0 0 Vital Signs Date Time Temp Pulse Resp B/P (MAP) Pulse Ox O2 Delivery O2 Flow Rate FiO2 03/18/17 12:40 72 03/18/17 12:00 99.2 74 19 159/72 (101) 98 03/18/17 10:05 72 03/18/17 09:19 96 21 03/18/17 08:00 98.3 64 20 152/88 (109) 96 03/18/17 05:38 98.6 71 18 171/80 (110) 95 03/18/17 04:00 78 03/18/17 01:23 98 Room Air 03/18/17 00:32 98.2 73 18 154/92 (112) 94 03/18/17 00:00 73 03/17/17 20:00 99.0 76 21 156/73 (100) 97 03/17/17 20:00 76 03/17/17 19:00 97 Room Air 03/17/17 16:00 98.8 76 20 153/79 (103) 96 03/17/17 16:00 76 03/17/17 12:00 99.7 67 18 155/72 (99) 95 03/17/17 12:00 67 03/17/17 08:36 94 03/17/17 08:00 68 03/17/17 08:00 99.6 68 18 142/68 (92) 94 03/17/17 07:00 94 Room Air 03/17/17 06:00 64 03/17/17 04:30 95 03/17/17 04:00 62 03/17/17 04:00 99.0 62 20 179/85 (116) 95 03/17/17 02:00 62 03/17/17 00:09 96 03/17/17 00:00 70 03/17/17 00:00 99.7 70 22 187/84 (118) 96 03/16/17 22:00 62 03/16/17 20:00 99.0 68 20 150/67 (94) 97 03/16/17 20:00 68 03/16/17 19:00 96 Room Air 03/16/17 18:00 87 03/16/17 16:00 64 03/16/17 16:00 100.1 64 20 171/70 (103) 97 03/16/17 14:00 63 03/16/17 12:00 66 03/16/17 12:00 100.6 66 19 169/73 (105) 95 03/16/17 10:00 58 03/16/17 08:00 98.8 62 20 170/79 (109) 96 03/16/17 08:00 62 03/16/17 07:49 92 21 03/16/17 07:00 96 Room Air 03/16/17 06:00 59 03/16/17 05:00 58 03/16/17 05:00 58 20 144/84 (104) 97 03/16/17 04:00 98.8 60 20 168/74 (105) 96 03/16/17 04:00 60 03/16/17 03:00 60 20 148/82 (104) 97 03/16/17 03:00 60 03/16/17 02:00 62 03/16/17 02:00 62 20 138/66 (90) 96 03/16/17 01:00 64 20 164/72 (102) 96 03/16/17 01:00 64 03/16/17 00:00 98.3 57 20 153/76 (101) 97 03/16/17 00:00 55 03/15/17 23:00 66 20 164/74 (104) 97 03/15/17 23:00 66 03/15/17 22:00 63 18 199/79 (119) 95 03/15/17 22:00 63 03/15/17 21:00 65 03/15/17 21:00 65 18 149/69 (95) 93 03/15/17 20:00 66 03/15/17 20:00 66 18 172/95 (120) 93 03/15/17 20:00 93 Room Air 03/15/17 19:00 98.3 66 17 150/71 (97) 93 03/15/17 19:00 61 03/15/17 18:00 68 Physical Examination GENERAL: Lethargic, briefly interacts after tactile stimulation. MUSCULOSKELETAL: LANTIGUA spontaneously w/o difficulty. NEUROLOGICAL: Lethargic but responds to light tactile stimulation and interacts. No eye opening to any stimulation. Does verbalise a couple words although garbled. Spontaneously moves all extremities and does follow commands. Lab, Micro, Other Results Recent Impressions Head CT 03/16/17 0000 Signed Impressions: Service Date/Time: Thursday, March 16, 2017 10:26 - CONCLUSION: Significant intraparenchymal and subarachnoid hemorrhage throughout the right temporal lobe in a very similar pattern and distribution to the . I don't see any new areas of hemorrhage. Stable midline shift and small areas of subarachnoid hemorrhage in the parietal regions are unchanged. Odilon Miller MD Laboratory Tests Test 03/15/17 20:01 03/16/17 05:53 03/17/17 03:23 03/18/17 06:58 Potassium Level 3.8 MEQ/L 3.6 MEQ/L 3.5 MEQ/L 3.1 MEQ/L Blood Urea Nitrogen 32 MG/DL 29 MG/DL 26 MG/DL Creatinine 0.83 MG/DL 0.77 MG/DL 0.71 MG/DL Random Glucose 100 MG/DL 100 MG/DL 101 MG/DL Calcium Level 8.8 MG/DL 9.0 MG/DL 8.4 MG/DL Sodium Level 144 MEQ/L 144 MEQ/L 143 MEQ/L Chloride Level 111 MEQ/L 109 MEQ/L 111 MEQ/L Carbon Dioxide Level 24.2 MEQ/L 23.8 MEQ/L 23.4 MEQ/L Anion Gap 9 MEQ/L 11 MEQ/L 9 MEQ/L Estimat Glomerular Filtration Rate 90 ML/MIN 98 ML/MIN 107 ML/MIN Albumin 3.0 GM/DL Phosphorus Level 2.4 MG/DL Magnesium Level 2.4 MG/DL Test 03/18/17 12:42 White Blood Count 9.9 TH/MM3 Red Blood Count 4.27 MIL/MM3 Hemoglobin 13.1 GM/DL Hematocrit 38.5 % Mean Corpuscular Volume 90.1 FL Mean Corpuscular Hemoglobin 30.7 PG Mean Corpuscular Hemoglobin Concent 34.1 % Red Cell Distribution Width 13.2 % Platelet Count 297 TH/MM3 Mean Platelet Volume 9.6 FL Neutrophils (%) (Auto) 64.7 % Lymphocytes (%) (Auto) 19.4 % Monocytes (%) (Auto) 12.6 % Eosinophils (%) (Auto) 2.4 % Basophils (%) (Auto) 0.9 % Neutrophils # (Auto) 6.4 TH/MM3 Lymphocytes # (Auto) 1.9 TH/MM3 Monocytes # (Auto) 1.2 TH/MM3 Eosinophils # (Auto) 0.2 TH/MM3 Basophils # (Auto) 0.1 TH/MM3 CBC Comment DIFF FINAL Differential Comment Medical Decision Making Impression and Plan Impression: Right temporal lobe hematoma Uncontrolled arterial hypertension Hypokalemia Lethargic when seen but does briefly follow commands, moves all extremities spontaneously, garbled verbalisation. Reviewed labs for today. Hypokalemia & hypophosphataemia, will defer mgmt to [employer]/Hospitalist. Plan: Primary management per Hospitalist. Neuro checks. Stat CT for any decline in neuro status. Maintain SBP < 160 mm Hg. Chetan Nettles [facility] Mar 18, 2017 15:56
[2017-03-19] VITALS (7 sets, daily range): BP systolic 140–159; BP diastolic 64–79; PULSE 74–89; RESP 18–23; TEMP 97.8–98.9; O2SAT 96–99
[2017-03-19] MEDS: cefTRIAXone INJ 1,000 MG in SODIUM CHLORIDE 0.9% INJ 100 ML IV SCH (01:38)
[2017-03-19] MEDS: CHLORHEXIDINE GLUCONATE 2 % 1 PACK (2 CLOTHS) TOP SCH (04:00)
[2017-03-19] MEDS: hydrALAZINE HCL 50 MG TAB PO SCH (06:02)
[2017-03-19] MEDS: LISINOPRIL 10 MG TAB PO SCH (08:56)
[2017-03-19] MEDS: HEPARIN SODIUM - SQ 10,000 UNITS/ML VIAL SQ SCH (08:56)
[2017-03-19] MEDS: DOCUSATE SODIUM 50 MG/SENNA 8.6 MG TAB PO SCH (08:56)
[2017-03-19] MEDS: SODIUM CHLORIDE 0.9% FLUSH 10 ML FLUSH IV FLUSH SCH (08:56)
[2017-03-19] MEDS: FAMOTIDINE 20 MG/2 ML VIAL IV PUSH SCH (08:56)
[2017-03-19 09:31] LABS: AUTOMATED NEUTROPHIL # 6.4 TH/MM3 (1.8-7.7); BASOPHIL % 0.4 % (0.0-2.0); EOSINOPHIL # 0.2 TH/MM3 (0-0.4); EOSINOPHIL % 2.3 % (0.0-4.0); HEMATOCRIT 38.9 % (39.0-51.0); HEMO FLAGS DIFF FINAL; LYMPH % 18.9 % (9.0-44.0); LYMPHOCYTE # 1.8 TH/MM3 (1.0-4.8); MEAN CELL VOLUME 90.1 FL (80.0-100.0); MEAN CORPUSCULAR HEMOGLOBIN 30.3 PG (27.0-34.0); MEAN CORPUSCULAR HGB CONC 33.7 % (32.0-36.0); MONO % 10.4 % (0.0-8.0); PLATELET COUNT 307 TH/MM3 (150-450); RED BLOOD COUNT 4.31 MIL/MM3 (4.50-5.90); RED CELL DISTRIBUTION WIDTH 13.3 % (11.6-17.2); WHITE BLOOD COUNT 9.4 TH/MM3 (4.0-11.0)
[2017-03-19 09:50] LABS: BICARBONATE 23.6 MEQ/L (21.0-32.0); MAGNESIUM 2.2 MG/DL (1.5-2.5); POTASSIUM 3.5 MEQ/L (3.5-5.1)
--- NOTE | 2017-03-19 11:40 | HHI.NSPN ---
History Chief Complaint: None. ICH. Interval History This is a 76-year-old male past medical history for hypertension, hyperlipidemia presents to the emergency department via EMS with new onset left sided weakness. According to EMS, the patient woke up yesterday morning around 8 AM complaining of a right-sided headache. He state in bed yesterday and rested. This morning when he woke up, his noticed that he was able to talk. According to EMS, last time seen normal was 8 AM yesterday morning. The patient is alert. He is oriented to person and place. He is not oriented to year, but does remember that the month is February. He reports sided headache. no seizure activity. No tongue bitting. No incontinence of stool or urine. He denies any fevers or chills. No chest pain or shortness of breath. No abdominal pain. No nausea, vomiting, diarrhea. He does have history of TIA. According to chart, he also has history of intracranial hemorrhage. CT brain showed a right temporal hemorrhage. Neurosurgical consultation was requested 03/11. Alert and a week. Persistent left hemiparesis. Follow up CT was done today. MRI of the brain is pending 03/12. Alert, awake, following commands. persistent left hemiparesis 03/13: Patient in ICU No significant change at present Followed for cerebral hemorrhage 03/18: The patient is seen on a regular med/surg floor having been transferred from the [facility] unit this morning. When seen he is lethargic and briefly mumbles. He does move all extremities spontaneously. 03/19/17: Pt awake and alert. Resting comfortably in bed. Denies headache, nausea, vomiting, chest pain, or sob. Review of Systems General: Negative for: fever, chills, insomnia Respiratory: Negative for: shortness of breath, cough, sputum Cardiovascular: Negative for: chest pain Gastrointestinal: Negative for: nausea, vomitting, diarrhea, constipation Exam Results Vital Signs Date Time Temp Pulse Resp B/P (MAP) Pulse Ox O2 Delivery O2 Flow Rate FiO2 03/19/17 09:50 83 03/19/17 07:40 98.8 18 143/75 (97) 98 03/18/17 09:19 21 03/18/17 01:23 Room Air Intake and Output 03/19/17 03/19/17 03/20/17 08:00 16:00 00:00 Intake Total 0 ml Balance 0 ml Physical Examination GENERAL: Pt awake and alert, resting comfortably in bed in NAD. EYES: Pupils equal 3mm bilaterally reactive bilaterally. Sclera anicteric. RESP: CTA bilaterally HEART: NSR no murmurs ABD: Soft positive bs. SKIN: No cyanosis or erythema. MUSCULOSKELETAL: LANTIGUA spontaneously w/o difficulty. NEUROLOGICAL: Pt awake and alert. follows simple commands. Answers questions. Pupils 3mm bilaterally reactive bilaterally. Lab, Micro, Other Results Last Impressions Head CT 03/16/17 0000 Signed Impressions: Service Date/Time: Thursday, March 16, 2017 10:26 - CONCLUSION: Significant intraparenchymal and subarachnoid hemorrhage throughout the right temporal lobe in a very similar pattern and distribution to the . I don't see any new areas of hemorrhage. Stable midline shift and small areas of subarachnoid hemorrhage in the parietal regions are unchanged. Odilon Miller MD Chest X-Ray 03/13/17 0000 Signed Impressions: Service Date/Time: Monday, March 13, 2017 13:18 - CONCLUSION: 1. No acute animality or significant interval change. Zaid Maria MD Brain MRI 03/11/17 0000 Signed Impressions: Service Date/Time: February 10:47 - CONCLUSION: 1. Large left temporal lobe hematoma 2. Additional bilateral posterior parietal cortical hemorrhages are noted. 3. Intraventricular hemorrhage with thrombus in the right lateral ventricle. 4. No evidence of large vessel acute infarct. 5. Severe white matter disease characteristic of chronic microvascular ischemic changes. 6. Decreasing mass effect with less midline shift. Branden Holloway MD Neck CTA 03/10/17 1534 Signed Impressions: Service Date/Time: Friday, March 10, 2017 15:57 - CONCLUSION: 1. Bilateral calcified carotid plaques. 2. No evidence of significant stenosis involving the common carotid arteries or internal carotid arteries. 3. Focal stenosis at the origin of the right external carotid artery. 4. Patent vertebral arteries without evidence of proximal stenotic lesions. Branden Holloway MD Head CTA 03/10/17 0000 Signed Impressions: Service Date/Time: Friday, March 10, 2017 15:57 - CONCLUSION: 1. Large right temporal lobe hematoma. 2. No evidence of ruptured aneurysm or vascular malformation. 3. Significant mass effect on the right middle cerebral artery branches with possible small vessel occlusions in the right temporal lobe. 4. Bilateral scribed disease identified in the left cerebral circulation and vertebral basilar vessels. 5. No other significant abnormality. Branden Holloway MD Laboratory Tests Test 03/18/17 12:42 03/19/17 08:56 White Blood Count 9.9 TH/MM3 9.4 TH/MM3 Red Blood Count 4.27 MIL/MM3 4.31 MIL/MM3 Hemoglobin 13.1 GM/DL 13.1 GM/DL Hematocrit 38.5 % 38.9 % Mean Corpuscular Volume 90.1 FL 90.1 FL Mean Corpuscular Hemoglobin 30.7 PG 30.3 PG Mean Corpuscular Hemoglobin Concent 34.1 % 33.7 % Red Cell Distribution Width 13.2 % 13.3 % Platelet Count 297 TH/MM3 307 TH/MM3 Mean Platelet Volume 9.6 FL 9.2 FL Neutrophils (%) (Auto) 64.7 % 68.0 % Lymphocytes (%) (Auto) 19.4 % 18.9 % Monocytes (%) (Auto) 12.6 % 10.4 % Eosinophils (%) (Auto) 2.4 % 2.3 % Basophils (%) (Auto) 0.9 % 0.4 % Neutrophils # (Auto) 6.4 TH/MM3 6.4 TH/MM3 Lymphocytes # (Auto) 1.9 TH/MM3 1.8 TH/MM3 Monocytes # (Auto) 1.2 TH/MM3 1.0 TH/MM3 Eosinophils # (Auto) 0.2 TH/MM3 0.2 TH/MM3 Basophils # (Auto) 0.1 TH/MM3 0.0 TH/MM3 CBC Comment DIFF FINAL DIFF FINAL Differential Comment Blood Urea Nitrogen 19 MG/DL Creatinine 0.67 MG/DL Random Glucose 101 MG/DL Albumin 3.1 GM/DL Calcium Level 8.5 MG/DL Phosphorus Level 2.7 MG/DL Magnesium Level 2.2 MG/DL Sodium Level 139 MEQ/L Potassium Level 3.5 MEQ/L Chloride Level 107 MEQ/L Carbon Dioxide Level 23.6 MEQ/L Anion Gap 8 MEQ/L Estimat Glomerular Filtration Rate 115 ML/MIN Medical Decision Making Impression and Plan A: 76 y/o M with right temporal lobe hematoma with mild left hemiparesis. P: Continue with rehab efforts continue to monitor Neuro exam Jesus Glez Mar 19, 2017 11:40 am
[2017-03-19] MEDS ORDERED: CLON.1 PO (12:19)
[2017-03-19] MEDS ORDERED: AMLO10 PO (12:19)
[2017-03-19] MEDS ORDERED: HYDR-3800 PO (12:19)
[2017-03-19] MEDS ORDERED: LISI10TA3 PO (12:19)
[2017-03-19] MEDS ORDERED: Albuterol-Ipratropium Neb INH (12:19)
--- NOTE | 2017-03-19 17:01 | HHI.PR ---
Objective Vital Signs Date Time Temp Pulse Resp B/P (MAP) Pulse Ox O2 Delivery O2 Flow Rate FiO2 03/19/17 11:39 98.4 84 18 159/76 (103) 99 03/19/17 09:50 83 03/19/17 07:40 98.8 74 18 143/75 (97) 98 03/19/17 05:00 98.9 80 23 140/64 (89) 96 03/19/17 04:00 76 03/19/17 00:15 97.8 88 20 145/79 (101) 96 03/19/17 00:00 89 03/18/17 23:43 96 03/18/17 21:15 98.1 84 19 150/71 (97) 95 03/18/17 20:42 80 I/O 03/18/17 03/18/17 03/18/17 03/19/17 03/19/17 03/19/17 07:00 15:00 23:00 07:00 15:00 23:00 Intake Total 160 ml 105 ml 1480 ml 0 ml Balance 160 ml 105 ml 1480 ml 0 ml Intake Oral 60 ml 1480 ml 0 ml IV Total 100 ml 105 ml # Voids 2 3 3 # Bowel Movements 0 0 Result Diagram: 03/19/17 0856 03/19/17 0856 Imaging Last Impressions Head CT 03/16/17 0000 Signed Impressions: Service Date/Time: Thursday, March 16, 2017 10:26 - CONCLUSION: Significant intraparenchymal and subarachnoid hemorrhage throughout the right temporal lobe in a very similar pattern and distribution to the . I don't see any new areas of hemorrhage. Stable midline shift and small areas of subarachnoid hemorrhage in the parietal regions are unchanged. Odilon Miller MD Chest X-Ray 03/13/17 0000 Signed Impressions: Service Date/Time: Monday, March 13, 2017 13:18 - CONCLUSION: 1. No acute animality or significant interval change. Zaid Maria MD Brain MRI 03/11/17 0000 Signed Impressions: Service Date/Time: February 10:47 - CONCLUSION: 1. Large left temporal lobe hematoma 2. Additional bilateral posterior parietal cortical hemorrhages are noted. 3. Intraventricular hemorrhage with thrombus in the right lateral ventricle. 4. No evidence of large vessel acute infarct. 5. Severe white matter disease characteristic of chronic microvascular ischemic changes. 6. Decreasing mass effect with less midline shift. Branden Holloway MD Neck CTA 03/10/17 1534 Signed Impressions: Service Date/Time: Friday, March 10, 2017 15:57 - CONCLUSION: 1. Bilateral calcified carotid plaques. 2. No evidence of significant stenosis involving the common carotid arteries or internal carotid arteries. 3. Focal stenosis at the origin of the right external carotid artery. 4. Patent vertebral arteries without evidence of proximal stenotic lesions. Branden Holloway MD Head CTA 03/10/17 0000 Signed Impressions: Service Date/Time: Friday, March 10, 2017 15:57 - CONCLUSION: 1. Large right temporal lobe hematoma. 2. No evidence of ruptured aneurysm or vascular malformation. 3. Significant mass effect on the right middle cerebral artery branches with possible small vessel occlusions in the right temporal lobe. 4. Bilateral scribed disease identified in the left cerebral circulation and vertebral basilar vessels. 5. No other significant abnormality. Branden Holloway MD Objective Remarks GENERAL: patient sitting up in bed. Appears comfortable. Much more awake than yesterday SKIN: Warm and dry. HEAD: Normocephalic. EYES: No scleral icterus. No injection or drainage. NECK: Supple, trachea midline. No JVD or lymphadenopathy. CARDIOVASCULAR: Regular rate and rhythm without murmurs, gallops, or rubs. RESPIRATORY: Breath sounds equal bilaterally. No accessory muscle use. GASTROINTESTINAL: Abdomen soft, non-tender, nondistended. MUSCULOSKELETAL: No cyanosis, or edema. BACK: Nontender without obvious deformity. No CVA tenderness. A/P Assessment and Plan //Right temporal intracerebral hemorrhage = Stable on repeat imaging. Cleared for discharge to rehabilitation as per neurosurgery. //Cerebral edema with right to left midline shift = Stable on repeat imaging. Cleared for discharge to rehabilitation as per neurosurgery. //Uncontrolled hypertension = Improved with addition of amlodipine, hydralazine, lisinopril. No further need for diltiazem. No indication of atrial fibrillation. //UTI pansensitive. Status post ceftriaxone 5 days. Discharge Planning discharge to rehabilitation. Follow with neurosurgery Martin Wade MD Mar 19, 2017 17:01
--- NOTE | 2017-03-19 17:02 | HHI.DS ---
Discharge Summary Admission Date Mar 10, 2017 at 15:15 Discharge Date: Mar 19, 2017 Admitting Diagnosis Subdural hematoma (1) Stroke due to intracerebral hemorrhage ICD Code: I61.9 - Nontraumatic intracerebral hemorrhage, unspecified Status: Acute Procedures no invasive procedures. Brief History - From Admission Herniated year-old male with a medical history significant for hypertension, hyperlipidemia, prior history of right temporal intracranial hemorrhage in January 2011 who developed right sided headache around 8 AM one day prior to his arrival on 03/09/17 in the morning. He pretty much stayed in bed all day. noticed that he was dragging his left leg while walking to the bathroom yesterday evening and also appeared to have some weakness in the left upper extremity. He was responding appropriately at the time however was slightly slow and drowsy. This morning on waking up patient's noticed that he was worse in terms of his neurologic status in more drowsy with persistent headache and decreased movement in left upper extremity hence EMS was called and patient was brought to the ER. Head CT done in ER revealed right temporal intraparenchymal hemorrhage. Dr. Hernández from neurosurgery was contacted and requested admission to critical care medicine service to the ICU with neurosurgery consult. I evaluated the patient in the ER after being notified of the consult with Dr. Hernández being at the bedside at the time as well. History was obtained by reviewing records and discussion with patient's and Dr. Hernández at the bedside. Patient was awake and alert and following commands with what appeared to be sensory inattention on the left side though he was moving all 4 extremities. History PFSH Past Medical History Cancer: No Cardiovascular Problems: No High Cholesterol: Yes Chemotherapy: No Diabetes: No Endocrine: No Gastrointestinal Disorders: No Genitourinary: No Headaches: Yes Hepatitis: No Hiatal Hernia: No Hypertension: Yes Immune Disorder: No Implanted Vascular Access Dvce: No Musculoskeletal: Yes (OA) Neurologic: No Psychiatric: No Reproductive: No Respiratory: No Radiation Therapy: No Thyroid Disease: No Past Surgical History Abdominal Surgery: No AICD: No Body Medical Devices: NONE Cardiac Surgery: No Ear Surgery: No Eye Surgery: No Genitourinary Surgery: No Gynecologic Surgery: No Joint Replacement: Yes (right hip) Oral Surgery: Yes (T&A AGE 18) Pacemaker: No Thoracic Surgery: No Tonsillectomy: Yes Other Surgery: Yes Family History Family Hypercholesterolemia: Yes Social History Alcohol Use: Yes Tobacco Use: No Substance Use: No Allergies-Medications Allergies-Medications (Allergen,Severity, Reaction): Coded Allergies: No Known Drug Allergies (Verified Allergy, Unknown, 01/21/17) Reported Meds & Prescriptions Reported Meds & Active Scripts Active Commode 3-in-1 (Device) 1 Mis Mis Ea .ROUTE DIRECTED Walker with Front Wheels (Device) 1 Mis Mis Ea .ROUTE DIRECTED CPM-Continuous Passive Motion Machine 1 Ea Device Ea .ROUTE DIRECTED Reported Diltiazem ER 24 HR 240 Mg Eligio 240 Mg PO DAILY CBC/BMP: 03/19/17 0856 03/19/17 0856 Significant Findings Laboratory Tests Test 03/17/17 03:23 03/18/17 06:58 03/18/17 12:42 03/19/17 08:56 Blood Urea Nitrogen 29 MG/DL (7-18) 26 MG/DL (7-18) 19 MG/DL (7-18) Chloride Level 109 MEQ/L (98-107) 111 MEQ/L (98-107) Albumin 3.0 GM/DL (3.4-5.0) 3.1 GM/DL (3.4-5.0) Calcium Level 8.4 MG/DL (8.5-10.1) Phosphorus Level 2.4 MG/DL (2.5-4.9) Potassium Level 3.1 MEQ/L (3.5-5.1) Red Blood Count 4.27 MIL/MM3 (4.50-5.90) 4.31 MIL/MM3 (4.50-5.90) Hematocrit 38.5 % (39.0-51.0) 38.9 % (39.0-51.0) Monocytes (%) (Auto) 12.6 % (0.0-8.0) 10.4 % (0.0-8.0) Monocytes # (Auto) 1.2 TH/MM3 (0-0.9) 1.0 TH/MM3 (0-0.9) Imaging Last Impressions Head CT 03/16/17 0000 Signed Impressions: Service Date/Time: Thursday, March 16, 2017 10:26 - CONCLUSION: Significant intraparenchymal and subarachnoid hemorrhage throughout the right temporal lobe in a very similar pattern and distribution to the . I don't see any new areas of hemorrhage. Stable midline shift and small areas of subarachnoid hemorrhage in the parietal regions are unchanged. Odilon Miller MD Chest X-Ray 03/13/17 0000 Signed Impressions: Service Date/Time: Monday, March 13, 2017 13:18 - CONCLUSION: 1. No acute animality or significant interval change. Zaid Maria MD Brain MRI 03/11/17 0000 Signed Impressions: Service Date/Time: February 10:47 - CONCLUSION: 1. Large left temporal lobe hematoma 2. Additional bilateral posterior parietal cortical hemorrhages are noted. 3. Intraventricular hemorrhage with thrombus in the right lateral ventricle. 4. No evidence of large vessel acute infarct. 5. Severe white matter disease characteristic of chronic microvascular ischemic changes. 6. Decreasing mass effect with less midline shift. Branden Holloway MD Neck CTA 03/10/17 1534 Signed Impressions: Service Date/Time: Friday, March 10, 2017 15:57 - CONCLUSION: 1. Bilateral calcified carotid plaques. 2. No evidence of significant stenosis involving the common carotid arteries or internal carotid arteries. 3. Focal stenosis at the origin of the right external carotid artery. 4. Patent vertebral arteries without evidence of proximal stenotic lesions. Branden Holloway MD Head CTA 03/10/17 0000 Signed Impressions: Service Date/Time: Friday, March 10, 2017 15:57 - CONCLUSION: 1. Large right temporal lobe hematoma. 2. No evidence of ruptured aneurysm or vascular malformation. 3. Significant mass effect on the right middle cerebral artery branches with possible small vessel occlusions in the right temporal lobe. 4. Bilateral scribed disease identified in the left cerebral circulation and vertebral basilar vessels. 5. No other significant abnormality. Branden Holloway MD Hospital Course //Right temporal intracerebral hemorrhage = Stable on repeat imaging. Cleared for discharge to rehabilitation as per neurosurgery. //Cerebral edema with right to left midline shift = Stable on repeat imaging. Cleared for discharge to rehabilitation as per neurosurgery. //Uncontrolled hypertension = Improved with addition of amlodipine, hydralazine, lisinopril. No further need for diltiazem. No indication of atrial fibrillation. //UTI pansensitive. Status post ceftriaxone 5 days. Discharge Planning discharge to rehabilitation. Follow with neurosurgery Pt Condition on Discharge: Good Discharge Disposition: Rehab Inpatient Discharge Time: > 30 minutes Discharge Instructions DIET: Follow Instructions for: Heart Healthy Diet Activities you can perform: Regular-No Restrictions Follow up Referrals: Neurosurgery - 1 Week with Travis Hernández MD New Medications: Amlodipine (Norvasc) 10 Mg Tab 10 MG PO DAILY for Blood Pressure Management for 30 Days, #30 TAB Clonidine (Catapres) 0.1 Mg Tab 0.1 MG PO Q8HR PRN for SBP > 160 for 30 Days, TAB Hydralazine HCl (Hydralazine HCl) 50 Mg Tablet 50 MG PO Q8HR for Blood Pressure Management for 30 Days, TAB Lisinopril (Lisinopril) 10 Mg Tab 10 MG PO Q12HR for Blood Pressure Management for 30 Days, TAB [Albuterol-Ipratropium Neb] () 1 AMPULE NEBU 1 AMPULE INH Q4HR NEB PRN for WHEEZING Discontinued Medications: Diltiazem ER 24 HR (Diltiazem ER 24 HR) 240 Mg Eligio 240 MG PO DAILY, #30 TAB 0 Refills Martin Wade MD Mar 19, 2017 17:02
== END 2017-03-19 14:30 | DRG 64 ==
LOC: NEPE 13:59 → NEDA 15:15 → N03A 21:20 → N05A 03-17 21:38
PROVIDERS: ADMIT Internal Medicine; ATTEND Internal Medicine
DX: I61.1 Nontraumatic intracerebral hemorrhage in hemisphere, cortical (principal); G93.6 Cerebral edema; G81.94 Hemiplegia, unspecified affecting left nondominant side; E83.39 Other disorders of phosphorus metabolism; N39.0 Urinary tract infection, site not specified; I61.5 Nontraumatic intracerebral hemorrhage, intraventricular; E78.5 Hyperlipidemia, unspecified; M19.90 Unspecified osteoarthritis, unspecified site; Z96.641 Presence of right artificial hip joint; E87.6 Hypokalemia; I10 Essential (primary) hypertension; Z78.1 Physical restraint status; Z86.73 Personal history of transient ischemic attack (TIA), and cerebral infarction without residual deficits
CPT/HCPCS: 36600; 70450; 70496; 70498; 70551; 71010; 80048; 80053; 80069; 81001; 82550; 82805; 82948; 83735; 83930; 84100; 84132; 84295; 84484; 85025; 85610; 85730; 87040; 87077; 87086; 87186; 87641; 93005; 95819; 96374; J0131; J0360; J0696; J1644; J1953; J2150; J2405; J3480; J7030; J7050; Q9967

== ENCOUNTER 2017-03-30 12:06 | Day surgery (SDC) | payer MEDICARE, BC ==
[~2017-03-30 12:06] MED LIST changes: +AMLO10 PO; -ASPI81CH6 CHEW; +Albuterol-Ipratropium Neb INH; +CLON.1 PO; -COMMODE 3-IN-11 MIS; -CPMMACHINE; -DILT1TAB4 PO; -ECASA81 PO; -ENOX40P SQ; -HYDR-3288 PO; +HYDR-3800 PO; -LIPI10TA PO; +LISI10TA3 PO; -WALKER WHEELS/F1 MIS
[2017-03-30] MEDS ORDERED: CYAN1000P IM (12:25)
[2017-03-30] MEDS ORDERED: PERICOLACE PO (12:25)
[2017-03-30] MEDS ORDERED: MULTTAB67 PO (12:25)
[2017-03-30] MEDS ORDERED: LEVE500 PO (12:25)
[2017-03-30] MEDS ORDERED: FAMO1TAB37 PO (12:25)
[2017-03-30] MEDS ORDERED: ASPI81CH6 CHEW (12:25)
[2017-03-30] MEDS ORDERED: NYST100084 TOPICAL (12:25)
[2017-03-30] MEDS ORDERED: ceFAZolin 2 GM PREMIX 50 ML IV SCH (12:45)
[2017-03-30] MEDS ORDERED: CHLORHEXIDINE GLUCONATE 2 % 1 PACK (2 CLOTHS) TOPICAL SCH (12:45)
[2017-03-30] MEDS ORDERED: POVIDONE IODINE 5% (ANTISEPSIS KIT) 4 APPLICATIONS EACH NARE SCH (12:45)
[2017-03-30] MEDS ORDERED: MUPIROCIN 2% OINT 1 APPLIC/GM SYR NASAL SCH (12:45)
[2017-03-30] MEDS ORDERED: MIDAZOLAM HCL 5 MG/ML VIAL (1 ML) ONE (13:33)
--- NOTE | 2017-03-30 14:32 | MB ---
cc: ALDEN ROCHA MD DATE OF CONSULTATION: 03/30/2017 REASON FOR CONSULTATION: Cerebrovascular accident HISTORY OF PRESENT ILLNESS The patient is a pleasant 76-year-old gentleman who sees my partner Dr. Woody who has had several cerebrovascular accidents, I have been asked by Dr. Duggan to an zero loop recorder to exclude atrial fibrillation as the etiology the patient is not able to give much of a history due to these prior stroke but his confirms the history is detailed in the chart and provides consent for the procedure. The patient himself denies chest pain, shortness breath, lightheadedness, dizziness. PAST MEDICAL HISTORY Cerebrovascular accident Hypertension MEDICATIONS Current medications; 1. Keppra. 2. Aspirin. 3. Amlodipine. 4. Hydralazine. 5. Lisinopril. ALLERGIES NO KNOWN DRUG ALLERGIES. PHYSICAL EXAMINATION VITAL SIGNS: Afebrile, pulse 96, respiratory 80, BP 150/73 satting 96% room air. IN GENERAL: Pleasant elderly gentleman in no distress. NECK: No JVD. LUNGS: Clear to auscultation bilaterally. CARDIOVASCULAR SYSTEM: Regular rhythm. No murmurs appreciated. ABDOMEN: Benign. EXTREMITIES: No edema. LABORATORY DATA White count 5.8, hematocrit 38.2, platelets 414. Sodium 136, potassium 4.0, chloride 101, bicarb 25.4, BUN 15, creatinine 0.74. Troponin was negative x1 on 03/24 Echocardiogram from 03/25 shows normal left ventricular ejection fraction of 50-55%. Holter monitor from was notable for a run of nonsustained ventricular tachycardia as well as to short atrial runs. IMPRESSION/PLAN: Cerebrovascular accident, the patient has had a cerebrovascular accident with short atrial runs of the Holter monitor. I think a loop recorder is reasonable to have long-term monitoring to food atrial fibrillation. The patient and his agree to this procedure and will be performed henceforth. Thank you again for the opportunity to participate this patient's care this patient. MD ROSE GarsiaH/sarah /1:24 PM /1:53 PM
--- NOTE | 2017-03-30 14:58 | MA ---
cc: ALDEN ROCHA MD, BETH A. MD DATE: 03/30/2017 PROCEDURES PERFORMED 1. Continuous moderate IV sedation. 2. Loop recorder insertion. DESCRIPTION OF PROCEDURE After informed consent was obtained a [employer] reveal link loop recorder was inserted subcutaneously to left chest. The patient tolerated procedure well without any apparent complications. Tachybrady pause and atrial fibrillation detection was enabled. Initial R-wave was 0.70 mV. The serial number was [id number] MD ROB Garsia/sarah /1:37 PM /2:27 PM
== END 2017-03-30 15:01 ==
LOC: HDOC 12:06 → HDIC 12:08 → HDOC 15:01
PROVIDERS: ATTEND Nuclear Medicine Nuclear Cardiology
DX: I63.9 Cerebral infarction, unspecified (principal); I10 Essential (primary) hypertension; E78.5 Hyperlipidemia, unspecified
CPT/HCPCS: 33282; 99152; C1764; J0690; J2250; J3010

== ENCOUNTER 2017-04-23 23:04 | Inpatient (IN) | payer MEDICARE, BC ==
[~2017-04-23] VITALS: Ht 177.8 cm; Wt 70.6 kg
[~2017-04-23 23:04] MED LIST changes: +ACET325T15 PO; -AMLO10 PO; +ARIC5TAB6 PO; +ASPI81CH6 CHEW; -Albuterol-Ipratropium Neb INH; -CLON.1 PO; +CLOT1CRE8 TOPICAL; +CYAN1000P IM; +FAMO1TAB37 PO; -HYDR-3800 PO; +LEVE500S PO; -LISI10TA3 PO; +MULTTAB67 PO; +PERI PO; +POLY99.0 EACH EYE
[2017-04-23 23:08] VITALS: BP 164/91; PULSE 88; RESP 26; O2SAT 92
[2017-04-23] MEDS ORDERED: SUCCINYLCHOLINE CHLORIDE 200 MG/10 ML VIAL ONE (23:09)
[2017-04-23] MEDS ORDERED: ETOMIDATE 40 MG/20 ML VIAL ONE (23:09)
[2017-04-23] MEDS ORDERED: SODIUM CHLOR 0.9% 1000 ML INJ 1,000 ML IV ONE (23:14)
[2017-04-23 23:18] VITALS: RESP 14; O2SAT 100; O2SAT 99
[2017-04-23] MEDS ORDERED: PROPOFOL 500 MG/50 ML INJ 50 ML ONE (23:24)
[2017-04-23] MEDS ORDERED: SUCCINYLCHOLINE CHLORIDE 100 MG/5 ML SYRINGE IV PUSH ONE (23:30)
[2017-04-23] MEDS ORDERED: ETOMIDATE 20 MG/10 ML VIAL IV PUSH ONE (23:30)
[2017-04-23 23:36] VITALS: O2SAT 100
[2017-04-23 23:38] LABS: AUTOMATED NEUTROPHIL # 13.8 TH/MM3 (1.8-7.7); BASOPHIL # 0.1 TH/MM3 (0-0.2); BASOPHIL % 0.7 % (0.0-2.0); EOSINOPHIL % 0.1 % (0.0-4.0); HEMOGLOBIN 12.5 GM/DL (13.0-17.0); LYMPHOCYTE # 1.3 TH/MM3 (1.0-4.8); MEAN CELL VOLUME 88.7 FL (80.0-100.0); MEAN CORPUSCULAR HGB CONC 33.8 % (32.0-36.0); MEAN PLATELET VOLUME 7.5 FL (7.0-11.0); MONO % 6.1 % (0.0-8.0); NEUT % 85.1 % (16.0-70.0); PLATELET COUNT 357 TH/MM3 (150-450); PROTHROMBIN TIME - PATIENT 10.2 SEC (9.8-11.6); RED BLOOD COUNT 4.17 MIL/MM3 (4.50-5.90); RED CELL DISTRIBUTION WIDTH 14.1 % (11.6-17.2); WHITE BLOOD COUNT 16.2 TH/MM3 (4.0-11.0)
--- NOTE | 2017-04-23 23:51 | RADRPT ---
EXAM DATE/TIME: 04/23/2017 23:35 [facility] COMPARISON: MRI BRAIN W/O CONTRAST, April 09, 2017, 13:46. CT BRAIN W/O CONTRAST, March 24, 2017, 10:50. INDICATIONS : Stroke alert; left sided weakness/numbness RADIATION DOSE: 56.35 CTDIvol (mGy) This report was called by Dr. Quevedo to Dr. Jensen at 11: 45 PM MEDICAL HISTORY : Stroke. Hypertension. SURGICAL HISTORY : None. ENCOUNTER: Initial ACUITY: 1 day PAIN SCALE: 0/10 LOCATION: cranial TECHNIQUE: Multiple contiguous axial images were obtained of the head. Using automated exposure control and adj ustment of the mA and/or kV according to patient size, radiation dose was kept as low as reasonably a chievable to obtain optimal diagnostic quality images. DICOM format image data is available electro nically for review and comparison. FINDINGS: CEREBRUM: There is a large parenchymal hemorrhage involving the right parietal and frontal lobes. This measures at least 7.5 cm in greatest diameter. There is 1 cm of [id number] midline shift. Hemorrhage exten ds into the ventricular system. Hemorrhage is seen in the dependent portions of the lateral ventricle s, body of the right lateral ventricle and in the third ventricle. There is subarachnoid hemorrhage s een over the left frontal and parietal lobes. There is evidence of prior hemorrhage at the lateral ri ght temporal lobe. There is encephalomalacia involving much of the right temporal lobe. There is exte nsive decreased density seen throughout the cerebral white matter. There is effacement of the sulci i n the right cerebral hemisphere. There is some narrowing of the left ambient cistern. The basal ciste rns are otherwise open. POSTERIOR FOSSA: The cerebellum and brainstem are intact. The 4th ventricle is midline. The cerebellopontine angle i s unremarkable. EXTRACRANIAL: The visualized portion of the orbits is intact. SKULL: The calvaria is intact. No evidence of skull fracture. CONCLUSION: 1. New large right hemorrhage involving the right frontal and parietal lobes with extension into the ventricular system. There is right to left midline shift and some narrowing of the left ambient ciste rn. 2. Subarachnoid hemorrhage seen over the left convexity. 3. Evidence of prior subacute hemorrhage and encephalomalacia involving the right temporal lobe. Zak Quevedo MD on April 23, 2017 at 23:38 Board Certified Radiologist. This report was verified electronically.
[2017-04-23 23:56] LABS: TROPONIN I LESS THAN 0.02 NG/ML (0.02-0.05)
[2017-04-24] VITALS (20 sets, daily range): BP systolic 126–208; BP diastolic 58–115; PULSE 75–92; RESP 14–21; TEMP 98.6–99.3; O2SAT 96–100
[2017-04-24] MEDS ORDERED: LABETALOL HCL 100 MG/20 ML VIAL IV PUSH ONE ×2 (00:15→00:45)
[2017-04-24] MEDS ORDERED: levETIRAcetam INJ 100 ML IV ONE (00:15)
[2017-04-24] MEDS ORDERED: MANNITOL INJ 250 ML IV ONE (00:15)
[2017-04-24] MEDS ORDERED: hydrALAZINE HCL 20 MG/ML VIAL IV PUSH PRN (00:45)
[2017-04-24] MEDS ORDERED: PROPOFOL 1000 MG/100 ML INJ 100 ML IV PRN (00:45)
[2017-04-24] MEDS ORDERED: SODIUM CHLORIDE 0.9% FLUSH 10 ML FLUSH IV FLUSH PRN (00:45)
[2017-04-24] MEDS ORDERED: ACETAMINOPHEN 325 MG TAB PO PRN (00:45)
[2017-04-24] MEDS ORDERED: niCARdipine INJ 25 MG in SODIUM CHLOR 0.9% 250 ML INJ 240 ML IV PRN (00:45)
[2017-04-24] MEDS ORDERED: RESP: ALBUTEROL 2.5 MG/IPRATROPIUM 0.5 MG NEB (PRN) INH (00:45)
[2017-04-24] MEDS ORDERED: CHLORHEXIDINE GLUCONATE 2 % 1 PACK (2 CLOTHS) TOP PRN (00:45)
[2017-04-24] MEDS ORDERED: MISCELLANEOUS NURSING INFORMATION XX SCH (00:45)
[2017-04-24] MEDS ORDERED: FOSPHENYTOIN INJ 1,000 MGPE in SODIUM CHLORIDE 0.9% INJ 50 ML IV ONE (01:00)
[2017-04-24] MEDS: PROPOFOL 1000 MG/100 ML IV PRN ×3 (01:00→12:00)
[2017-04-24] MEDS: SODIUM CHLOR 0.9% 1000 ML INJ 1,000 ML IV SCH ×2 (01:00→14:20)
--- NOTE | 2017-04-24 01:13 | RADRPT ---
EXAM DATE/TIME: 04/24/2017 00:46 [facility] COMPARISON: CHEST SINGLE AP, March 13, 2017, 13:18. INDICATIONS : Post intubation. MEDICAL HISTORY : Stroke. Hypertension. SURGICAL HISTORY : None. ENCOUNTER: Initial ACUITY: 1 day PAIN SCORE: Non-responsive. LOCATION: Bilateral chest FINDINGS: The ET tube and NG tube are well placed. The heart size is normal. The lungs are clear. There is a lo op recorder seen in the left chest. Surgical fasteners are seen at the right proximal humerus. CONCLUSION: No acute disease. Zak Quevedo MD on April 24, 2017 at 1:08 Board Certified Radiologist. This report was verified electronically.
--- NOTE | 2017-04-24 01:21 | HHI.HP ---
[facility] Service Critical Care Medicine Primary Care Physician Mo Barnett M.D. Admission Diagnosis hemorrhagic stroke Diagnosis: Chief Complaint: Altered mental status, left-sided weakness Travel History International Travel<30 Days: No (UNABLE TO OBTAIN) Contact w/Intl Traveler <30 Da: No (UNABLE TO OBTAIN) Traveled to Known Affected Are: No (UNABLE TO OBTAIN) History of Present Illness 76 year-old male with a medical history significant for hypertension, hyperlipidemia, previous right temporal intracranial hemorrhage and recent admission in February 2017 for right temporal intraparenchymal hemorrhage for which she was admitted to the ICU and subsequently discharged to rehabilitation. Patient was recently discharged from rehabilitation to senior care. He presented to the ER today with left-sided weakness and altered mental status by EMS. Head CT done in the ER revealed large right parietal intra- cerebral hemorrhage with 10 mm midline shift. Patient was also extremely hypertensive. He was emergently intubated and placed on mechanical ventilation and started on propofol for sedation. Dr. Lam from neurosurgery evaluated the patient in the ER and discussed treatment options with patient's at bedside. She has decided against neurosurgical intervention at this time. Patient being admitted by critical care medicine service. I had a discussion with Dr. Lam as well as patient's at bedside. At the time of my evaluation patient was sedated with propofol, orally intubated on mechanical ventilation. History PFSH Past Medical History Cancer: No Cardiovascular Problems: No High Cholesterol: Yes Chemotherapy: No Diabetes: No Endocrine: No Gastrointestinal Disorders: No Genitourinary: No Headaches: Yes Hepatitis: No Hiatal Hernia: No Hypertension: Yes Immune Disorder: No Implanted Vascular Access Dvce: No Musculoskeletal: Yes (OA) Neurologic: No Psychiatric: No Reproductive: No Respiratory: No Radiation Therapy: No Thyroid Disease: No Past Surgical History Abdominal Surgery: No AICD: No Body Medical Devices: NONE Cardiac Surgery: No Ear Surgery: No Eye Surgery: No Genitourinary Surgery: No Gynecologic Surgery: No Joint Replacement: Yes (right hip) Oral Surgery: Yes (T&A AGE 18) Pacemaker: No Thoracic Surgery: No Tonsillectomy: Yes Other Surgery: Yes Family History Family Hypercholesterolemia: Yes Social History Alcohol Use: Yes Tobacco Use: No Substance Use: No Allergies-Medications Allergies-Medications (Allergen,Severity, Reaction): Coded Allergies: No Known Drug Allergies Medications at senior care: Will be reviewed. Not on any anticoagulation or antiplatelet therapy. Review of Systems ROS Limitations: Intubated Physical Exam Vital Signs Vital Signs Date Time Temp Pulse Resp B/P (MAP) Pulse Ox O2 Delivery O2 Flow Rate FiO2 04/24/17 01:00 80 20 208/115 (146) 100 Ventilator 50 04/24/17 00:59 100 50 04/24/17 00:50 50 04/24/17 00:45 99 50 04/24/17 00:00 77 14 178/84 (115) 100 Ventilator 70 04/23/17 23:36 100 100 04/23/17 23:18 14 100 Ventilator 70 04/23/17 23:18 100 Ventilator 100 04/23/17 23:18 99 70 04/23/17 23:15 70 04/23/17 23:11 92 Non-Rebreather 04/23/17 23:08 88 26 164/91 (115) 92 Physical Exam HEENT/ Neuro: Sedated, orally intubated, no pallor, no icterus, tongue/ mucosa moist. Pupils 3 mm bilaterally reacting actively to light. Tremors in right upper extremity noted. Plantars equivocal Neck: No JVD Chest/Pulm: on mech vent, good air entry bilaterally, no wheezing or crackles CVS: S1-S2 regular, no murmur GI/abdomen: soft, nontender, bowel sounds sluggish Extremities: warm bilaterally, no edema Laboratory Laboratory Tests Test 04/23/17 23:10 White Blood Count 16.2 Red Blood Count 4.17 Hemoglobin 12.5 Bedside Hemoglobin 12.9 Hematocrit 37.0 Bedside Hematocrit 38.0 Mean Corpuscular Volume 88.7 Mean Corpuscular Hemoglobin 30.0 Mean Corpuscular Hemoglobin Concent 33.8 Red Cell Distribution Width 14.1 Platelet Count 357 Mean Platelet Volume 7.5 Neutrophils (%) (Auto) 85.1 Lymphocytes (%) (Auto) 8.0 Monocytes (%) (Auto) 6.1 Eosinophils (%) (Auto) 0.1 Basophils (%) (Auto) 0.7 Neutrophils # (Auto) 13.8 Lymphocytes # (Auto) 1.3 Monocytes # (Auto) 1.0 Eosinophils # (Auto) 0.0 Basophils # (Auto) 0.1 CBC Comment DIFF FINAL Differential Comment Prothrombin Time 10.2 Prothromb Time International Ratio 1.0 Activated Partial Thromboplast Time 21.2 Fibrinogen 376 Bedside Sodium 142 Bedside Potassium 3.8 Bedside Chloride 105 Bedside Blood Urea Nitrogen 10 Bedside Creatinine 0.7 Bedside Glucose 192 Total Creatine Kinase 39 Troponin I LESS THAN 0.02 Result Diagram: 04/23/17 8250 Caprini VTE Risk Assessment Caprini VTE Risk Assessment: Mod/High Risk (score >= 2) VTE Pharm Contraindication: Hemorrhage Caprini Risk Assessment Model Point Value = 1 Point Value = 2 Point Value = 3 Point Value = 5 Age 41-60 Minor surgery BMI > 25 kg/m2 Swollen legs Varicose veins or History of unexplained or recurrent spontaneous Oral contraceptives or hormone replacement Sepsis (< 1 month) Serious lung disease, including pneumonia (< 1 month) Abnormal pulmonary function Acute myocardial infarction Congestive heart failure (< 1 month) History of inflammatory bowel disease Medical patient at bed rest Age 61-74 Arthroscopic surgery Major open surgery (> 45 min) Laparoscopic surgery (> 45 min) Malignancy Confined to bed (> 72 hours) Immobilizing plaster cast Central venous access Age >= 75 History of VTE Family history of VTE Factor V Leiden Prothrombin [id number] Lupus anticoagulant Anticardiolipin antibodies Elevated serum homocysteine Heparin-induced thrombocytopenia Other congenital or acquired thrombophilia Stroke (< 1 month) Elective arthroplasty Hip, pelvis, or leg fracture Acute spinal cord injury (< 1 month) Prophylaxis Regimen Total Risk Factor Score Risk Level Prophylaxis Regimen 0-1 Low Early ambulation 2 Moderate Order ONE of the following: *Sequential Compression Device (SCD) *Heparin 5000 units SQ BID 3-4 Higher Order ONE of the following medications: *Heparin 5000 units SQ TID *Enoxaparin/Lovenox 40 mg SQ daily (WT < 150 kg, CrCl > 30 mL/min) *Enoxaparin/Lovenox 30 mg SQ daily (WT < 150 kg, CrCl > 10-29 mL/min) *Enoxaparin/Lovenox 30 mg SQ BID (WT < 150 kg, CrCl > 30 mL/min) AND/OR *Sequential Compression Device (SCD) 5 or more Highest Order ONE of the following medications: *Heparin 5000 units SQ TID (Preferred with Epidurals) *Enoxaparin/Lovenox 40 mg SQ daily (WT < 150 kg, CrCl > 30 mL/min) *Enoxaparin/Lovenox 30 mg SQ daily (WT < 150 kg, CrCl > 10-29 mL/min) *Enoxaparin/Lovenox 30 mg SQ BID (WT < 150 kg, CrCl > 30 mL/min) AND *Sequential Compression Device (SCD) Assessment and Plan Assessment and Plan 76-year-old male with: Massive intracerebral hemorrhage with midline shift Encephalopathy Acute respiratory failure on mechanical ventilation Hypertensive emergency Plan: Neuro: Sedation with propofol. Continue neuro checks. Fentanyl when necessary for discomfort. Neurosurgery consulted and patient evaluated by Dr. Lam. Extremely poor prognosis, patient's refused neurosurgical intervention at this time. We will initiate Cerebyx for seizure prophylaxis. Patient's wants to focus more on comfort and aggressive measures. Continue Mannitol 25gm IV Q6hrly Cardiovascular: IV hydration, hydralazine/nicardipine gtt. as needed to keep SBP less than 160 mmHg. Pulmonary: Continue mechanical ventilation, vent bundle, bronchodilators as needed. Adjust vent settings to maintain end-tidal CO2 30-35 mmHg GI/liver: Nothing by mouth for now Renal/: IV hydration, strict intake output, monitor and replete electro lites , follow BUN/creatinine. ID: No antibiotics at this time. Heme: Follow CBC Endocrine: SSI for glycemic control if needed. Prophylaxis: Pepcid IV, SCDs. No subcutaneous heparin in view of intracerebral hemorrhage. Condition critical. Extensive discussion with patient's at bedside. Extremely poor prognosis per discussion with neurosurgery explained and she at this time wishes to make patient DNR status. She does not want further invasive procedures at this time. She does wish to wait for her daughter's to arrive prior to making further decisions regarding de-escalation of therapy. Palliative care consult requested to assist with deciding goals of therapy. Time spent on critical care excluding procedures 60 minutes Familia Washington MD Apr 24, 2017 01:21
[2017-04-24 03:28] LABS: ALBUMIN 3.8 GM/DL (3.4-5.0); ALT (GPT) 19 U/L (12-78); AST (GOT) 25 U/L (15-37); BICARBONATE 24.2 MEQ/L (21.0-32.0); BLOOD UREA NITROGEN 10 MG/DL (7-18); CALCIUM 9.2 MG/DL (8.5-10.1); CHLORIDE 106 MEQ/L (98-107); GLOMERULAR FILTRATION RATE 82 ML/MIN (>89); GLUCOSE,RANDOM 184 MG/DL (74-106); SODIUM (NA) 141 MEQ/L (136-145)
[2017-04-24 03:30] LABS: ALKALINE PHOSPHATASE 67 U/L (45-117); TOTAL BILIRUBIN ADULT 0.3 MG/DL (0.2-1.0); TOTAL PROTEIN 7.7 GM/DL (6.4-8.2)
[2017-04-24] MEDS ORDERED: CHLORHEXIDINE GLUCONATE 2 % 1 PACK (2 CLOTHS) TOP SCH (04:00)
[2017-04-24] MEDS: RESP: ALBUTEROL 2.5 MG/IPRATROPIUM 0.5 MG NEB (SCH) NEB ×4 (04:08→20:04)
[2017-04-24] MEDS: MANNITOL 12.5 GM/50 ML VIAL IV SCH ×3 (06:00→18:00)
[2017-04-24] MEDS: INSULIN ASPART SUPPLEMENTAL SCALE SQ SCH ×3 (06:00→18:00)
[2017-04-24] MEDS ORDERED: CHLORHEXIDINE 0.12% (ORAL KIT) 15 ML CUP MT SCH (08:00)
[2017-04-24] MEDS: FOSPHENYTOIN SODIUM 100 MG PE/2 ML VIAL IV SCH ×2 (08:05→17:00)
[2017-04-24] MEDS ORDERED: fentaNYL 2,500 MCG/NS 250 ML IV PRN ×2 (08:15→08:45)
[2017-04-24] MEDS ORDERED: RASS Change Order XX ONE (08:15)
[2017-04-24] MEDS ORDERED: SODIUM CHLORIDE 0.9% FLUSH 10 ML FLUSH IV FLUSH SCH (09:00)
[2017-04-24] MEDS ORDERED: FAMOTIDINE 20 MG/2 ML VIAL IV PUSH SCH (09:00)
--- NOTE | 2017-04-24 13:26 | EKG ---
Date Performed: 04/23/2017 Time Performed: 23:20:51 PTAGE: 76 years EKG: Sinus rhythm Since the prior tracing, there has been no significant change NORMAL ECG PREVIOUS TRACING : 03/10/2017 14.08 DOCTOR: Shakir An Interpretating Date/Time 04/24/2017 13:24:39
--- NOTE | 2017-04-24 17:38 | HHI.CCPN ---
Subjective Remarks/Hospital Course Brief note: Family ( and daughter) wish to withdraw artificial support in keeping with the patient's advanced directives and stated wishes. All are in agreement that he would not want to be supported like this. Family has requested specifically that he should not experience any discomfort or anxiety and have requested aggressive sedation and analgesia prior to extubation. We will comply to their wishes. Objective Result Diagram: 04/23/17 2310 04/24/17 0549 A/P Assessment and Plan 76-year-old male with: Massive intracerebral hemorrhage with midline shift Encephalopathy Acute respiratory failure on mechanical ventilation Hypertensive emergency For comfort care. Sahil Cancino MD Apr 24, 2017 17:38
[2017-04-24] MEDS ORDERED: MORPHINE SULFATE 8 MG/ML INJ IV PUSH ONE (17:45)
[2017-04-24] MEDS ORDERED: LORazepam 2 MG/ML VIAL IV PUSH ONE (17:45)
[2017-04-24] MEDS: MORPHINE SULFATE 4 MG/ML INJ IV PUSH PRN ×2 (17:50→18:20)
[2017-04-24] MEDS: MORPHINE SULFATE 8 MG/ML INJ IV PUSH PRN ×2 (17:55→18:25)
[2017-04-24] MEDS ORDERED: LORazepam 2 MG/ML VIAL IV PUSH PRN (18:15)
--- NOTE | 2017-04-24 19:52 | MB ---
cc: FELIPA PAYTON DATE OF CONSULTATION 04/24/17 REASON FOR CONSULTATION Right cerebral hemorrhage. HISTORY OF PRESENT ILLNESS This is a 76-year-old gentleman who resides in a fpc who presents with acute decline in his level of alertness, progressing to obtundation. He was admitted to [facility] with a right temporal lobe hemorrhage and was seen by Dr. Hernández from neurosurgery and subsequently discharged to a rehab facility and recently has been in a fpc. His states that he has been having a very difficult course with bouts of memory loss and confusion and unsteady gait, although he was started to verbalize more and walk with assistance short distances but still very debilitated. On arrival to the emergency room, he was intubated for airway control and CT scan of the head revealed significant right hemisphere subcortical bleed with about 10 mm of midline shift. He has had multiple hemorrhages in the past which were felt to be related to amyloid angiopathy. PAST MEDICAL HISTORY 1. Multiple cerebral hemorrhages with a recent one last month, 2. Hypertension, 3. Osteoarthritis, 4. Right hip replacement, 5. Tonsillectomy FAMILY HISTORY Mother from a stroke and also had COPD. Father from a gunshot injury with a history of lung cancer. His two daughters are living and one is a nurse. Son in his 40s due to alcohol abuse. SOCIAL HISTORY He is and his is here with him. There is no history of smoking or alcohol use. She is retired. He currently resides in a fpc. LABORATORY FINDINGS White blood count 6.0, hemoglobin 13, platelet count of 286, PT 10.4, INR 1.0, PTT 25.2. Sodium 137, potassium 3.6, BUN nine, creatinine 0.85, glucose 111. MEDICATIONS 1. Acetaminophen. 2. Aspirin. 3. Clomitazole ointment. 4. Vitamin C. 5. Aricept. 6. Pepcid. 7. Keppra. 8. Multivitamins 9. Senokot. ALLERGIES NO KNOWN DRUG ALLERGIES. REVIEW OF SYSTEMS Cannot be obtained. The patient is comatose. PHYSICAL EXAMINATION VITAL SIGNS: Temperature is 98.6, pulse is 80, respiratory rate 20, blood pressure is 178/84, oxygen saturations 100% on 50% FIO2 HEAD: No Greer's or raccoon sign, atraumatic. NECK: Supple with midline trachea. No guarding or rigidity. CHEST: Clear to auscultation bilaterally HEART: Regular rate and rhythm, normal S1, S2. ABDOMEN: Soft, nontender. EXTREMITIES: No obvious deformity. SKIN: No rash, erythema or breakdown. GENERAL: An elderly gentleman who is intubated on ventilator support in a comatose state, unresponsive. NEUROLOGIC: He does not open his eyes. Pupils are small 2 mm bilaterally. There is a weak withdrawal on the right side. He is hemiplegic on the left side. He does not follow commands. GCS is five. IMPRESSION 1. Large right hemisphere cerebral and subcortical hemorrhage with mass effect and midline shift. Etiology includes amyloid angiopathy given his previous hemorrhages and remote locations as well as hypertensive bleed in the basic ganglia with extension to the ventricle and hemisphere. 2. Unregulated hypertension 3. Respiratory failure secondary to the cerebral hemorrhage. PLAN I have had a lengthy discussion with the patient as well as a daughter who is out of state over the phone who is a nurse. We discussed treatment options which include nonsurgical management as well as surgical intervention with a right craniotomy and hematoma evacuation. Unfortunately, given his very debilitated state prior to this decline from the previous hemorrhages and strokes, the likelihood of meaningful recovery would be poor and more than likely he would still have the dense left-sided weakness if not paralysis with long-term dependent care likely also. The family is adamant that they do not want any surgical intervention or heroic measures and are contemplating withdrawal of care and, at this point, they are considering only pursuing comfort measures. Discussed with the emergency room physician and distributing clerk who are in agreement with this approach. Accordingly, he will be admitted and, when the family so requests, his ventilator status and supportive care can be withdrawn. The has also requested that he be made DNR with no cardiac resuscitation in case of any cardiac arrest in the meantime. MD NAM Antonio/ /3:57 PM /7:15 PM
--- NOTE | 2017-04-25 17:56 | PD ---
HPI Chief Complaint: Stroke Alert Time Seen by Provider: 23:13 Travel History International Travel<30 days: No (UNABLE TO OBTAIN) Contact w/Intl Traveler<30days: No (UNABLE TO OBTAIN) Traveled to known affect area: No (UNABLE TO OBTAIN) History of Present Illness HPI pt is a 76 year old male in a [place]hab [place] , He is reported to have had sudden onset of left sided paralysis 2 hrs ago onset that progressed rapidly to unresponsive state . En route per EMS pt deteriorated .On arrival pt unresponsive to voice and sternal rub. I intubated immediately with RSI no complcation.. Pt BP [id number]/110 .CT ordered immediately and Neurology called as soon as I had secured the patients airway. Saturation 100% on vent. CXR port ordered. CT reveals large rightsided 7.5 cm bleed with 10 mm midline shift and cistern narrowing , Radiologist suggests early signs of hernia. I Immediately call Dr Lam and he comes bedside to evaluate pt. Family arrived after CT intubation and 1 dose of labetolol to keep Pt @ 180 . Systolic . After I spoke with DR Lam I ordered keppra and Mannitol to reduce ICP and prevent seizure. 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 There was no report of trauma tonight . Pt physical appearance on arrivel shows no signs of trama , and he clenched teeth when I first started to look into airway.. Pt condition critical PFSH Past Medical History Arthritis: Yes Asthma: Yes Autoimmune Disease: No Anxiety: No Depression: No Heart Rhythm Problems: No Cancer: No Cardiovascular Problems: No High Cholesterol: Yes Chemotherapy: No Chest Pain: No Congestive Heart Failure: No COPD: No Cerebrovascular Accident: Yes (02/2017) Diabetes: No Endocrine: No Gastrointestinal Disorders: No GERD: Yes Genitourinary: No Headaches: Yes (02/2017) Hepatitis: No Hiatal Hernia: No Heparin Induced Thrombocytopen: No Hypertension: Yes Immune Disorder: No Implanted Vascular Access Dvce: No Kidney Stones: No Medical other: No Musculoskeletal: Yes (OA) Neurologic: Yes (SDH) Psychiatric: No Reproductive: No Respiratory: No Migraines: No Radiation Therapy: No Renal Failure: No Seizures: No Sickle Cell Disease: No Sleep Apnea: No Thyroid Disease: No Ulcer: No Past Surgical History Abdominal Surgery: No AICD: No Arteriovenous Shunt: No Body Medical Devices: NONE Cardiac Surgery: No Ear Surgery: No Endocrine Surgery: No Eye Surgery: No Genitourinary Surgery: No Gynecologic Surgery: No Insulin Pump: No Joint Replacement: Yes (right hip) Neurologic Surgery: No Oral Surgery: Yes (T&A AGE 18) Pacemaker: No Thoracic Surgery: No Tonsillectomy: Yes Other Surgery: Yes Family History Family Hypercholesterolemia: Yes Social History Alcohol Use: Yes (moderately) Tobacco Use: No Substance Use: No Allergies-Medications (Allergen,Severity, Reaction): Coded Allergies: No Known Drug Allergies (Verified Allergy, Unknown, 04/23/17) Reported Meds & Prescriptions Reported Meds & Active Scripts Active Clotrimazole AF Topical (Clotrimazole) 1% Cream 1 Applic TOPICAL Q8HR Apply to groin folds every 8 hours Artificial Tears Opth Drops (Polyvinyl Alcohol) 1.4% Soln 1 Drop EACH EYE TID 30 Days Gnp Senna Plus 8.6-50 mg (Sennosides-Docusate Sodium) 8.6 Mg-50 Mg Tab 1 Tab PO BID Keppra Liq (Levetiracetam) 500 Mg/5 Ml Soln 250 Mg PO Q12HR 30 Days Eq Acetaminophen (Acetaminophen) 325 Mg Tab 650 Mg PO Q4H PRN 30 Days Aricept (Donepezil HCl) 5 Mg Tablet 5 Mg PO DAILY Cyanocobalamin Inj (Cyanocobalamin) 1,000 Mcg/Ml Inj 1,000 Mcg IM Q30D Multiple Vitamin 1 Tab 1 Tab PO DAILY Pepcid (Famotidine) 20 Mg Tab 10 Mg PO BID Aspirin Low Dose (Aspirin) 81 Mg Chew 81 Mg CHEW DAILY Review of Systems ROS Limitations: Unresponsive Physical Exam Narrative GENERAL: unresponsive but leaning to left with some muscle tone to body no responsive to verbal nor tacticle stimuli SKIN: Warm and dry. HEAD: Atraumatic. Normocephalic. EYES: Pupils equal and round. No scleral icterus. No injection or drainage. 4mm equal reactive ENT: No nasal bleeding or discharge. Mucous membranes pink and moist. NECK: Trachea midline. No JVD. CARDIOVASCULAR: Regular rate and rhythm. SBP on arrival 190/110 RESPIRATORY: No accessory muscle use. . Intubated orotracheal area normal. no secretions noted no vomitus GASTROINTESTINAL: Abdomen , nondistended. Hepatic and splenic margins not palpable. MUSCULOSKELETAL: Extremities without clubbing, cyanosis, or edema. No obvious deformities. NEUROLOGICAL: unresponsive but maintained body posture leaning to left Data Data Last Documented VS Vital Signs Date Time Temp Pulse Resp B/P (MAP) Pulse Ox O2 Delivery O2 Flow Rate FiO2 04/24/17 00:00 77 14 178/84 (115) 100 Ventilator 70 Orders Orders Succinylcholine Inj (Quelicin Inj) (04/23/17 23:09) Etomidate Inj (Amidate Inj) (04/23/17 23:09) Electrocardiogram (04/23/17 ) I-Stat Profile (04/23/17 23:14) Prothrombin Time / Inr (Pt) (04/23/17 23:14) Act Partial Throm Time (Ptt) (04/23/17 23:14) Complete Blood Count With Diff (04/23/17 23:14) Fibrinogen (04/23/17 23:14) Creatine Kinase (Cpk) (04/23/17 23:14) Troponin I (04/23/17 23:14) Ct Brain W/O Iv Contrast(Rout) (04/23/17 ) Resp Oxygen Nc Stroke (04/23/17 ) Sodium Chlor 0.9% 1000 Ml Inj (Ns 1000 M (04/23/17 23:14) Etomidate Inj (Amidate Inj) (04/23/17 23:30) Succinylcholine Inj (Quelicin Inj) (04/23/17 23:30) Propofol 500 Mg/50 Ml Inj (Diprivan 500 (04/23/17 23:24) Labetalol Inj (Trandate Inj) (04/24/17 00:15) Mannitol Inj (Osmitrol Inj) (04/24/17 00:15) Levetiracetam Inj (Keppra Inj) (04/24/17 00:15) Admit Order (Ed Use Only) (04/24/17 00:32) Labetalol Inj (Trandate Inj) (04/24/17 00:45) Labs Laboratory Tests Test 04/23/17 23:10 White Blood Count 16.2 TH/MM3 Red Blood Count 4.17 MIL/MM3 Hemoglobin 12.5 GM/DL Bedside Hemoglobin 12.9 G/DL Hematocrit 37.0 % Bedside Hematocrit 38.0 % Mean Corpuscular Volume 88.7 FL Mean Corpuscular Hemoglobin 30.0 PG Mean Corpuscular Hemoglobin Concent 33.8 % Red Cell Distribution Width 14.1 % Platelet Count 357 TH/MM3 Mean Platelet Volume 7.5 FL Neutrophils (%) (Auto) 85.1 % Lymphocytes (%) (Auto) 8.0 % Monocytes (%) (Auto) 6.1 % Eosinophils (%) (Auto) 0.1 % Basophils (%) (Auto) 0.7 % Neutrophils # (Auto) 13.8 TH/MM3 Lymphocytes # (Auto) 1.3 TH/MM3 Monocytes # (Auto) 1.0 TH/MM3 Eosinophils # (Auto) 0.0 TH/MM3 Basophils # (Auto) 0.1 TH/MM3 CBC Comment DIFF FINAL Differential Comment Prothrombin Time 10.2 SEC Prothromb Time International Ratio 1.0 RATIO Activated Partial Thromboplast Time 21.2 SEC Fibrinogen 376 mg/dL Bedside Sodium 142 MMOL/L Blood Urea Nitrogen 10 MG/DL Creatinine 0.90 MG/DL Random Glucose 184 MG/DL Total Protein 7.7 GM/DL Albumin 3.8 GM/DL Calcium Level 9.2 MG/DL Alkaline Phosphatase 67 U/L Aspartate Amino Transf (AST/SGOT) 25 U/L Alanine Aminotransferase (ALT/SGPT) 19 U/L Total Bilirubin 0.3 MG/DL Sodium Level 141 MEQ/L Potassium Level 3.8 MEQ/L Chloride Level 106 MEQ/L Carbon Dioxide Level 24.2 MEQ/L Bedside Potassium 3.8 MMOL/L Bedside Chloride 105 MMOL/L Anion Gap 11 MEQ/L Bedside Blood Urea Nitrogen 10 MG/DL Bedside Creatinine 0.7 MG/DL Estimat Glomerular Filtration Rate 82 ML/MIN Bedside Glucose 192 MG/DL Total Creatine Kinase 39 U/L Troponin I LESS THAN 0.02 NG/ML [facility] Medical Decision Making Medical Screen Exam Complete: Yes Emergency Medical Condition: Yes Differential Diagnosis CVA ischemic vs Hemorrhage vs vs traumatic subdural , vs aspiration resp failure vs intoxication . pill overdose , sepsis, other Narrative Course On arrival pt unresponsive to voice and sternal rub. I intubated immediately with RSI no complcation.. Pt BP [id number]/110 .CT ordered immediately and Neurology called as soon as I had secured the patients airway. Saturation 100 % on vent. CXR port ordered. CT reveals large rightsided 7.5 cm bleed with 10 mm midline shift and cistern narrowing , Radiologist MD suggests early signs of hernia. I Immediately call Dr Lam and he comes bedside to evaluate pt. Family arrived after CT intubation and 1 dose of labetolol to keep Pt @ 180 . Systolic . After I spoke with DR Lam I ordered keppra and Mannitol to reduce ICP and prevent seizure. Admitted to ICU I discussed case with ICU attending , NEuro attending and KESHA Lam for pt treat and dispo . Critical Care Narrative 45 minutes of critical care time . intubation , HTN control Neuor and Neuro surgical consult and MAnnitol for ICP reduction .. Procedures Procedure Narrative Intubated with RSI and 8.0 tube and direct visualization of cords good color change on capnometer . 100% sat post procedue without complication Diagnosis Primary Impression: Stroke due to intracerebral hemorrhage Additional Impression: Unresponsive Admitting Information Admitting Physician Requests: Admit Condition: Critical Trey Jensen MD Apr 25, 2017 17:56
== END 2017-04-24 22:22 | disposition expired | DRG 64 ==
LOC: NEPE 23:04 → NEDA 04-24 00:34 → N03B 04-24 01:31
PROVIDERS: ADMIT Internal Medicine Critical Care Medicine; ATTEND Internal Medicine Critical Care Medicine
PROC: 0BH17EZ Insertion of Endotracheal Airway into Trachea, Via Natural or Artificial Opening (ICD-10-PCS; principal; 2017-04-24)
PROC: 5A1935Z Respiratory Ventilation, Less than 24 Consecutive Hours (ICD-10-PCS; 2017-04-24)
DX: I61.0 Nontraumatic intracerebral hemorrhage in hemisphere, subcortical (principal); G93.40 Encephalopathy, unspecified; J96.00 Acute respiratory failure, unspecified whether with hypoxia or hypercapnia; I16.1 Hypertensive emergency; G81.94 Hemiplegia, unspecified affecting left nondominant side; I10 Essential (primary) hypertension; E78.5 Hyperlipidemia, unspecified; Z96.641 Presence of right artificial hip joint; M19.90 Unspecified osteoarthritis, unspecified site; K21.9 Gastro-esophageal reflux disease without esophagitis; Z66 Do not resuscitate; Z51.5 Encounter for palliative care; J45.909 Unspecified asthma, uncomplicated; E78.00 Pure hypercholesterolemia, unspecified; Z86.79 Personal history of other diseases of the circulatory system
CPT/HCPCS: 31500; 36600; 51702; 70450; 71045; 80048; 80053; 82550; 82805; 82948; 83930; 84295; 84484; 85025; 85384; 85610; 85730; 87641; 93005; 94002; 94003; 94640; 94664; 94770; 96365; 96375; J0330; J1953; J2060; J2150; J2270; J3010; J7030; J7050; Q2009